=== PATIENT | female | born 1970 | race Caucasian/White ===

== ENCOUNTER → 2017-03-09 | Outpatient (CLI) | payer OTHER ==
[~2017-03-09] MED LIST: ALBUAER19 INH; BUPR100T8 PO; FLR/1 PO; LEVO50TA6 PO; PHEN37.585 PO; PRLSR20 PO; TRAZ-119 PO
--- NOTE | 2017-03-09 17:05 | DIAGNOSTIC IMAGING REPORT ---
LUMBAR SPINE 3 VIEWS CLINICAL HISTORY: Low back pain. FINDINGS: AP, lateral, and coned-down views of the lumbar spine are correlated with KUB dated 06/06/2016. The skeletal structures are well mineralized. There is no radiographic evidence of fracture or malalignment. Vertebral body height and alignment are maintained. The transverse and spinous processes are intact. Small anterior osteophytes are seen throughout. There is mild disc space narrowing at L5-S1. The remaining intervertebral disc spaces are well-maintained. The visualized bony pelvis appears intact. There is a nonobstructed abdominal bowel gas pattern. There is moderate to severe constipation. Surgical clips are seen throughout the right abdomen. Phleboliths are noted in the pelvis. IMPRESSION: 1. No acute bony abnormality is seen involving the lumbosacral spine. 2. Moderate to severe constipation. Electronically signed by: Chalino Gaxiola M.D. 03/09/2017 5:04 PM Dictated Date/Time: 03/09/2017 5:02 PM
== END | disposition home or self-care (01) ==
LOC: C.RAD 16:33
PROVIDERS: ATTEND Physician Assistant Medical
DX: M54.5 Low back pain (principal)

== ENCOUNTER → 2017-03-12 | Outpatient (CLI) | payer OTHER ==
--- NOTE | 2017-03-12 08:43 | DIAGNOSTIC IMAGING REPORT ---
MRI OF THE LUMBAR SPINE WITHOUT CONTRAST CLINICAL HISTORY: Midline low back pain. Recent lifting injury. COMPARISON STUDY: Lumbar spine radiographs March 09, 2017. TECHNIQUE: Utilizing a 1.5 Drea magnet and dedicated coil, multiplanar, multiecho imaging of the lumbar spine was performed without IV contrast. FINDINGS: For purposes of numbering on this exam, the L5-S1 disc space is assigned to axial image 27 of 30. Alignment of lumbar spine is anatomic. Vertebral body heights are maintained. Conus terminates at the lower L1 level. Paravertebral soft tissues are unremarkable. Scattered T1 and T2 hyperintense lesions within the lower thoracic and lumbar spine are noted. The largest is a 1.2 cm lesion within the left posterior aspect of the T12 vertebral body. These are consistent with hemangiomas. L1-2: There is mild disc bulge. The central canal and neural foramen are patent. L2-3: The central canal and neural foramen are patent. L3-4: The central canal and neural foramen are patent. L4-5: There is mild facet arthrosis. The central canal and neural foramen are patent. L5-S1: There is a tiny central disc protrusion. Central canal and neural foramen are patent. IMPRESSION: 1. Mild multilevel degenerative disc disease and facet arthrosis. Patent central canal and neural foramen. 2. Tiny central disc protrusion at L5-S1. Minimal disc bulge at L1-L2. 3. No acute findings within the lumbar spine. No fracture. Electronically signed by: Simba Rosales M.D. 03/12/2017 8:41 AM Dictated Date/Time: 03/12/2017 8:31 AM
== END | disposition home or self-care (01) ==
LOC: C.MRI 07:22
PROVIDERS: ATTEND Physician Assistant
DX: M54.5 Low back pain (principal); M51.27 Other intervertebral disc displacement, lumbosacral region

== ENCOUNTER → 2017-03-23 | Outpatient (CLI) | payer OTHER ==
--- NOTE | 2017-03-23 11:24 | DIAGNOSTIC IMAGING REPORT ---
LEFT WRIST MIN 3 VIEWS ROUTINE CLINICAL HISTORY: INJURY OF LEFT WRIST - STAT COMPARISON: None. DISCUSSION: The bones and joint spaces appear intact. There is no evidence of fracture, dislocation or bony disease. There is no evidence for soft tissue swelling. IMPRESSION: Negative study. Electronically signed by: Jean Pierre Bird M.D. 03/23/2017 11:23 AM Dictated Date/Time: 03/23/2017 11:20 AM
--- NOTE | 2017-03-23 11:25 | DIAGNOSTIC IMAGING REPORT ---
LEFT FOREARM 2 VIEWS ROUTINE CLINICAL HISTORY: INJURY OF LEFT WRIST - STAT COMPARISON: None. DISCUSSION: The bones and joint spaces appear intact. There is no evidence of fracture, dislocation or bony disease. There is no evidence for soft tissue swelling. IMPRESSION: Negative study. Electronically signed by: Jean Pierre Bird M.D. 03/23/2017 11:24 AM Dictated Date/Time: 03/23/2017 11:23 AM
== END | disposition home or self-care (01) ==
LOC: C.RAD 10:50
PROVIDERS: ATTEND Physician Assistant Medical
DX: S69.92XA Unspecified injury of left wrist, hand and finger(s), initial encounter (principal); X58.XXXA Exposure to other specified factors, initial encounter

== ENCOUNTER → 2017-05-14 | Outpatient (CLI) | payer OTHER ==
[~2017-05-14] MED LIST changes: -TRAZ-119 PO; +TRAZ1TAB16 PO
--- NOTE | 2017-05-14 13:57 | MAMMOGRAPHY REPORT ---
BILATERAL DIGITAL SCREENING MAMMOGRAM TOMOSYNTHESIS WITH CAD: 05/14/2017 CLINICAL HISTORY: Routine screening. Patient has no complaints. TECHNIQUE: Breast tomosynthesis in addition to standard 2D mammography was performed. Current study was also evaluated with a Computer Aided Detection (CAD) system. COMPARISON: Comparison is made to exams dated: 05/13/2016 mammogram, 05/10/2015 mammogram, 03/05/2014 tamika mogram, 01/26/2013 mammogram, 01/02/2011 mammogram, and 07/25/2009 mammogram - [facility]. BREAST COMPOSITION: There are scattered areas of fibroglandular density in both breasts. FINDINGS: No suspicious masses, calcifications, or areas of architectural distortion are noted in ei ther breast. There has been no significant interval change compared to prior exams. A biopsy marker clip is again noted in the left central breast. IMPRESSION: ACR BI-RADS CATEGORY 2: BENIGN There is no mammographic evidence of malignancy. A 1 year screening mammogram is recommended. The pa tient will receive written notification of the results. Approximately 10% of breast cancers are not detected with mammography. A negative mammographic report should not delay biopsy if a clinically suggestive mass is present. Chiqui Townsend M.D. /:05/14/2017 12:17:28 Day Habilitation Specialist: Raquel DARDEN)(Jose), [facility] letter sent: Normal 1/2 BI-RADS Code: ACR BI-RADS Category 2: Benign
== END | disposition home or self-care (01) ==
LOC: C.MAMM 11:29
PROVIDERS: ATTEND Student in an Organized Health Care Education/Training Program
DX: Z12.31 Encounter for screening mammogram for malignant neoplasm of breast (principal)

== ENCOUNTER → 2017-06-04 | Outpatient (CLI) | payer OTHER ==
--- NOTE | 2017-06-04 10:36 | DIAGNOSTIC IMAGING REPORT ---
LEFT UPPER EXT JOINT WITHOUT CLINICAL HISTORY: 46 years-old Female presenting with LEFT WRIST PAIN, generalized pain for 2 months, no injury. TECHNIQUE: Multisequence, multiplanar MR imaging of the left wrist was performed without the use of intravenous contrast. IV contrast: None. COMPARISON: Plain radiographs of the left wrist from 03/23/2017.. FINDINGS: Localizer images: Unremarkable. Focal minimal bony edema or cystic change noted in the hamate. No other bony edema is evident. Articular cartilage preserved. Triangular fibrocartilage articular disc intact at the radial insertion, however abnormal intrasubstance linear signal intensity suggest tear near the ulnar insertion. Tendons of the extensor and flexor compartments normal-appearing. Normal appearance of the median nerve. Normal appearance of Guyon's canal. Normal muscle bulk and muscle signal intensity in the intrinsic muscles of the hand. Ganglion cysts noted along the volar aspect of the radiocarpal joint. Scapholunate and lunotriquetral interosseous ligaments intact. Normal intercarpal articulations. IMPRESSION: 1. Suspicion for triangular fibrocartilage articular disc tear near the ulnar insertion. 2. Ganglion cysts along the volar aspect of the radiocarpal joint. Electronically signed by: Alok Sarabia M.D. 06/04/2017 10:34 AM Dictated Date/Time: 06/04/2017 10:28 AM
== END | disposition home or self-care (01) ==
LOC: C.MRI 09:10
PROVIDERS: ATTEND Family Medicine
DX: M25.532 Pain in left wrist (principal); R20.9 Unspecified disturbances of skin sensation; M67.432 Ganglion, left wrist

== ENCOUNTER → 2017-07-12 | Outpatient (CLI) | payer OTHER ==
[~2017-07-12] MED LIST changes: +GADAVIST IV PRN; +MethylPREDNISolone HOME PACK 16 MG TAB PO SCH
--- NOTE | 2017-07-12 14:09 | DIAGNOSTIC IMAGING REPORT ---
L ARTHROGRAM WRIST CLINICAL HISTORY: 46 years-old Female presenting with COMPLEX TEAR OF CARTILAGE L WRIST. COMPARISON: None. PROCEDURE: The risks, benefits, and alternatives to the procedure were discussed with the patient. Written informed consent was obtained. The patient was placed supine on the fluoroscopy table, and a left wrist injection was performed under fluoroscopic guidance. The area was prepped and draped in the usual sterile fashion. The skin and soft tissues anesthetized with local 1% lidocaine. The left wrist joint was accessed utilizing a 22-gauge needle, and approximately 2 cc of a mixture of gadolinium contrast, Optiray 300, and saline was injected into the joint space under fluoroscopic guidance. There was normal distention of the capsule. The procedure was well tolerated without immediate complication. The patient was then transferred to MRI for MR arthrography. Fluoroscopy dosage (mGy): Not available. Fluoroscopy time: 0.8 minutes. Number of fluoroscopic spot images: 7. IMPRESSION: Successful injection of the left wrist under fluoroscopic guidance. Electronically signed by: Alok Sarabia M.D. 07/12/2017 2:08 PM Dictated Date/Time: 07/12/2017 1:58 PM
--- NOTE | 2017-07-12 16:25 | DIAGNOSTIC IMAGING REPORT ---
L UPPER EXTREMITY JOINT W/ CLINICAL HISTORY: 46 years-old Female presenting with COMPLEX TEAR OF CARTILAGE L WRIST. TECHNIQUE: Multisequence, multiplanar MR imaging of the left wrist was performed after intra-articular injection of contrast IV contrast: None. COMPARISON: Left wrist MR from 06/04/2017. FINDINGS: Localizer images: Unremarkable. T1 hyperintense intra-articular contrast is noted in the radiocarpal articulation. No contrast transits into the distal radial ulnar joint, indicative of an intact regular fibrocartilage complex. The disc proper of the TFC is intact, although increased signal intensity at the radial attachment without surface extension indicates degenerative change. The triangular ligament is intact. Ulnar triquetral ligament intact. Normal appearance of the meniscal homolog. No contrast transits into the mid carpal row. Scapholunate and lunotriquetral interosseous ligaments intact. The dorsal and volar radioulnar ligaments are intact. Carpal tunnel normal in appearance. No fracture. No bony edema. No malalignment. IMPRESSION: 1. Degenerative changes of the triangular fibrocartilage complex without evidence of tear. 2. Intact interosseous ligaments of the proximal carpal row. Electronically signed by: Alok Sarabia M.D. 07/12/2017 4:24 PM Dictated Date/Time: 07/12/2017 1:58 PM
== END | disposition home or self-care (01) ==
LOC: C.MRI 12:30
PROVIDERS: ATTEND Orthopaedic Surgery
DX: S63.592A Other specified sprain of left wrist, initial encounter (principal); X58.XXXA Exposure to other specified factors, initial encounter

== ENCOUNTER → 2018-05-17 | Outpatient (CLI) | payer OTHER ==
[~2018-05-17] MED LIST changes: -GADAVIST IV PRN; -MethylPREDNISolone HOME PACK 16 MG TAB PO SCH; -TRAZ1TAB16 PO; +TRAZ1TAB96 PO
--- NOTE | 2018-05-18 13:51 | MAMMOGRAPHY REPORT ---
BILATERAL DIGITAL SCREENING MAMMOGRAM TOMOSYNTHESIS WITH CAD: 05/17/2018 CLINICAL HISTORY: Routine screening. TECHNIQUE: The study was acquired using full field digital technology and interpreted from soft copy. Breast tomosynthesis in addition to standard 2D mammography was performed. Current study was also ev aluated with a Computer Aided Detection (CAD) system. COMPARISON: Comparison is made to exams dated: 05/14/2017 mammogram, 05/13/2016 mammogram, 05/10/2015 ma mmogram, 03/05/2014 mammogram, 01/26/2013 mammogram, and 01/26/2012 mammogram - [facility]. BREAST COMPOSITION: There are scattered areas of fibroglandular density in both breasts. FINDINGS: There is a stable biopsy marker clip within a circumscribed subcentimeter mass in the anter ior retroareolar left breast. No new suspicious mass, architectural distortion or cluster of microcal cifications is seen. IMPRESSION: ACR BI-RADS CATEGORY 1: NEGATIVE There is no mammographic evidence of malignancy. A 1 year screening mammogram is recommended.( [id number]) The patient will receive written notification of the results. Some breast cancers are not detected with mammography. A negative mammographic report should not erinn y biopsy if a clinically suggestive mass is present. Sharri Briones M.D. ay/:05/17/2018 15:21:00 Polytechnic Registrar: RT Sujey(Colin)(M), [facility] letter sent: Normal 1/2 BI-RADS Code: ACR BI-RADS Category 1: Negative
== END | disposition home or self-care (01) ==
LOC: C.MAMM 11:09
PROVIDERS: ATTEND Student in an Organized Health Care Education/Training Program
DX: Z12.31 Encounter for screening mammogram for malignant neoplasm of breast (principal)

== ENCOUNTER 2020-07-29 18:14 | Observation (INO) ==
[2020-07-29 20:36] LABS: Basophils # (auto) 0.03 K/uL (0-0.2); Basophils % (auto) 0.4 %; Eosinophils # (auto) 0.14 K/uL (0-0.5); Eosinophils % (auto) 1.8 %; Hematocrit (blood only) 36.4 % (37-47); Hemoglobin 11.1 g/dL (12.0-16.0); Immature Granulocytes # (auto) 0.01 K/uL (0.00-0.02); Immature Granulocytes % (auto) 0.1 %; Lymphocytes # (auto) 2.53 K/uL (1.2-3.4); Lymphocytes % (auto) 31.7 %; Mean Corpuscular Hemoglobin 25.7 pg (25-34); Mean Corpuscular Hgb Conc 30.5 g/dL (32-36); Mean Corpuscular Volume 84.3 fL (80-100); Mean Platelet Volume 9.9 fL (7.4-10.4); Monocytes # (auto) 0.68 K/uL (0.11-0.59); Monocytes % (auto) 8.5 %; Neutrophils % (auto) 57.5 %; Platelet Count 306 K/uL (130-400); RDW Coefficient of Variation 14.6 % (11.5-14.5); RDW Standard Deviation 45.5 fL (36.4-46.3); Red Blood Count 4.32 M/uL (4.2-5.4); White Blood Count 7.99 K/uL (4.8-10.8)
[2020-07-29 20:39] LABS: Appearance Urine Cloudy (Clear); Bacteria Urine Automated Negative (Negative); Bilirubin Urine Negative (Negative); Blood Urine 3+ (Negative); Color Urine Dark Yellow; Epithelial Cell Urine Auto >30 /lpf (0-5); Glucose Urine UA Negative (Negative); Ketones Urine Trace (Negative); Leukocyte Esterase Urine Negative (Negative); Nitrite Urine Negative (Negative); Protein Urine Negative (Negative); Specific Gravity Urine 1.027 (1.000-1.030); Urobilinogen Urine Negative (Negative)
[2020-07-29 20:52] LABS: Alanine Aminotransferase 20 U/L (12-78); Albumin Level 3.6 gm/dl (3.4-5.0); Aspartate Aminotransferase 9 U/L (15-37); BUN Creatinine Ratio 11.3 (10-20); Blood Urea Nitrogen 11 mg/dl (7-18); Calcium 8.9 mg/dl (8.5-10.1); Carbon Dioxide 29 mmol/L (21-32); Chloride 107 mmol/L (98-107); Creatinine Clr Calc Pharmacy 73.7 ml/min; Est GFR (African American) 76.5; Glucose 101 mg/dl (70-99); Lipase 117 U/L (73-393); Potassium 3.6 mmol/L (3.5-5.1); Sodium 141 mmol/L (136-145)
[2020-07-29 20:55] LABS: Albumin Globulin Ratio 0.8 (0.9-2); Alkaline Phosphatase 97 U/L (45-117); Bilirubin,Total 0.2 mg/dl (0.2-1); Globulin 4.3 gm/dl (2.5-4.0); Total Protein 7.9 gm/dl (6.4-8.2)
[2020-07-29 21:08] LABS: Calcium Oxalate Crystals Urine Present (None Prsent); RBC Urine Automated >30 /hpf (0-4)
--- NOTE | 2020-07-29 21:22 | Emergency Department Note ---
Impression & Plan Acute upper abdominal pain ED Provider Note INFORMANT: Patient ED PROVIDER(S): Heriberto Guallpa MD CHIEF COMPLAINT: Abdominal pain PLAN: Disposition: Admitted Condition: Good MEDICAL DECISION MAKING: Patient presented with acute abdominal pain in the epigastrium. She had tenderness on examination. She had an IV established. Blood was obtained. Her pain was treated with Dilaudid and Zofran. She did feel somewhat better with this. She did require a second dose. Her CBC did not show any leukocytosis but a stable mild anemia. Her chemistry panel, LFTs, and lipase were negative. The patient had some blood on urinalysis however she did note that she had her menstrual cycle. The patient was prepped orally for CT imaging. She underwent CT scan of the abdomen and pelvis and this was negative for any significant pathology. The patient was also treated with Protonix and Pepcid. She was reassessed and was having more significant pain. She had an ECG performed in the showed a normal sinus rhythm. No ischemia was noted. The patient was given a dose of Carafate. Given her recurrent pain and lack of findings on work-up I am concerned about ulcer issues given her gastric bypass status. I discussed further management in the hospital. Patient was in agreement. I consulted with Dr. Omkar Larios, [facility]. The patient was evaluated in the ER for further management. Triage Nursing notes reviewed and agree them. Additional history obtained from significant other Vital Signs: reviewed and remarkable for no significant abnormalities Differential diagnosis: PUD, complication of gastric bypass, Appendicitis, ovarian cyst, ovarian torsion, ectopic , TOA, PID, infections, diverticulitis, UTI, obstruction, mesenteric ischemia, aortic pathology, inflammatory bowel disease, renal colic, PUD, pancreatitis, biliary pathology, hernia, volvulus, constipation, as well as other pathologies. Diagnostics interpreted by me: ECG: Twelve-lead ECG reveals a normal sinus rhythm at 80 bpm. There is an incomplete right bundle-branch block present. Nonspecific ST. No ST elevation or depression. No PACs or PVCs. Normal QRS and axis. Cardiac Monitoring: Cardiac monitoring ordered by me: The patient was placed on continuous cardiac monitoring and observed. It revealed a normal sinus rhythm at 75 beats per minute without ectopy or evidence of dysrhythmia. Imaging studies: CT scan of the abdomen pelvis with oral contrast was negative for acute pathology. Gastric bypass status present. I refer to the EMR for further details. Consultation(s): [facility] HPI: The patient is a 49 year old female who presents to the Emergency Room with complaints of epigastric abd pain. This started today and is worsening. The patient also notes the following associated symptoms, none. The patient has found no relieving factors. Current pain is rated as 7/10. Pt denies LOC, headache, fevers, chills, diaphoresis, visual changes, neck pain, chest pain, breathing difficulties, nausea, vomiting, back pain, melena, hematochezia, urinary symptoms, numbness, weakness, lymphadenopathy, rash, or other complaints. ROS: See above HPI for pertinent positives & negatives. A total of 10 systems reviewed and were otherwise negative. PAST MEDICAL HISTORY:See Below, BPV, SDH PAST SURGICAL HISTORY:See Below, Gastric bypass, appy, melecio FAMILY HISTORY:See Below SOCIAL HISTORY:See Below, HOME MEDICATIONS:See Below ALLERGIES:See Below VITALS:See Below PHYSICAL EXAMINATION: GENERAL: Awake, alert, well-appearing, in no distress HENT: Normocephalic, atraumatic. Oropharynx unremarkable. EYES: Normal conjunctiva. Sclera non-icteric. NECK: Inspection normal. Non-tender. Supple. No nuchal rigidity. FROM. No masses. RESPIRATORY: Clear to auscultation. No wheezes. No rales. Normal respiratory effort. CARDIAC: Normal rate. Normal rhythm. No murmurs. No rubs. Extremities warm and well perfused. Pulses equal. No JVD. GI: Soft, non-distended. epigastric tenderness to palpation. No rebound or guarding. No masses. RECTAL: Deferred. MUSCULOSKELETAL: Atraumatic. Chest examination reveals no tenderness. The back is symmetrical on inspection without obvious abnormality. There is no CVA tenderness to palpation. No joint edema. LOWER EXTREMITIES: Calves are equal size bilaterally and non-tender. No edema. No discoloration. NEURO: Normal sensorium. No sensory or motor deficits noted. SKIN: No rash or jaundice noted. Heriberto Guallpa MD Past Med/Surg History Medical History (Updated 07/29/20 @ 21:20 by Heriberto Guallpa MD) BPV (benign positional vertigo) Bronchitis Dental infection External hemorrhoid Low blood pressure Traumatic subdural hematoma (12/02/11) Upper respiratory infection Urinary tract infection Urinary tract infection Surgical History H/O bariatric surgery History of strabismus surgery S/P appendectomy S/P cardiac cath S/P cholecystectomy S/P ear surgery S/P knee surgery S/P tonsillectomy S/P tubal ligation S/P wrist surgery Family History Mother Asthma Aunt Bleeding disorder Family/Other Bleeding disorder Hypertension mother's side of the family Grandmother (Maternal) Lung cancer Social History Smoking Status: Never smoker Second Hand Exposure: No; Hx Alcohol Use: No Hx Substance Use: No Preferred Language: British current occupational status: unemployed and disabled Feels Safe at Home: Yes Allergies Allergies Allergy/AdvReac Type Severity Reaction Status Date / Time Iodinated Contrast Media Allergy Intermediate THROAT Verified 07/29/20 21:28 TIGHTENS, SHAKINESS venlafaxine Allergy Intermediate DIZZINESS, Verified 07/29/20 21:28 VOMITING acetaminophen Allergy Mild HIVES Verified 07/29/20 21:28 sumatriptan Allergy Mild HIVES Verified 07/29/20 21:28 valproic acid Allergy Mild Dizziness Verified 07/29/20 21:28 erythromycin base Allergy Unknown CAN'T Verified 07/29/20 21:28 REMEMBER ketorolac Allergy Unknown CAN'T Verified 07/29/20 21:28 REMEMBER prednisone Allergy Verified 07/29/20 21:28 oxycodone AdvReac Intermediate nausea Verified 07/29/20 21:28 mupirocin AdvReac Mild itching,cl Verified 07/29/20 21:28 h propoxyphene AdvReac Mild UPSET Verified 07/29/20 21:28 STOMACH Tea Allergy Mild HIVES, Uncoded 07/29/20 21:28 dizziness,sweating Home Meds Home Medications Medication Instructions Recorded Confirmed bupropion HCl 150 mg PO DAILY 11/27/18 07/29/20 levothyroxine 50 mcg PO QAM 11/27/18 07/29/20 Ca carb-D3-mag [id number] 1 tab PO DAILY 12/15/19 07/29/20 [Caltrate + D3 Plus Minerals] pediatric multivitamin 1 tab PO DAILY 12/15/19 07/29/20 [Flintstones Multivitamin] gabapentin 0 mg PO UD 07/29/20 07/29/20 Previous Rx's Medication Instructions Recorded albuterol sulfate 90 mcg/actuation 2 puff INHALATION QID PRN #8.5 gm 09/16/19 aerosol inhaler pantoprazole 40 mg tablet,delayed 40 mg PO DAILY #30 tab 09/16/19 release valacyclovir 500 mg tablet 500 mg PO DAILY #30 tab 09/16/19 sennosides [senna] 8.6 mg PO DAILY PRN #10 cap 12/15/19 Results & Data (ED) Vital Signs Vital Signs - 24 hr 07/29/20 19:23 07/29/20 20:44 07/29/20 21:00 Temperature 37.0 C Temperature Source Oral Pulse Rate 89 75 Pulse Rate [Bilateral] 72 Pulse Rate from SpO2 Sensor 77 Pulse Rhythm [Bilateral] Regular Pulse Strength [Bilateral] Normal Respiratory Rate 20 18 15 Respiratory Effort / Characteristics Non-Labored Spontaneous Non-Labored Spontaneous Respiratory Depth Normal Normal Blood Pressure 111/74 121/67 Blood Pressure [Right Arm] 115/70 Blood Pressure Mean 86 80 Blood Pressure Mean [Right Arm] 85 Blood Pressure Position [Right Arm] Lying Pulse Oximetry 98 96 100 Oxygen Delivery Method Room Air Room Air Room Air Sepsis New/Unexplained Change in Mental Status N/A Sepsis Action Taken by Nursing No Action Required 07/29/20 22:00 07/29/20 23:38 07/30/20 00:00 Temperature Temperature Source Pulse Rate 78 71 66 Pulse Rate [Bilateral] Pulse Rate from SpO2 Sensor 74 65 Pulse Rhythm [Bilateral] Pulse Strength [Bilateral] Respiratory Rate 14 18 18 Respiratory Effort / Characteristics Respiratory Depth Blood Pressure 129/79 125/78 122/83 Blood Pressure [Right Arm] Blood Pressure Mean 91 83 89 Blood Pressure Mean [Right Arm] Blood Pressure Position [Right Arm] Pulse Oximetry 98 100 100 Oxygen Delivery Method Room Air Room Air Room Air Sepsis New/Unexplained Change in Mental Status Sepsis Action Taken by Nursing Laboratory Data Result diagrams: 07/29/20 20:20 07/29/20 20:20 Lab Results 07/29/20 07/29/20 07/29/20 Range/Units 20:20 20:20 20:20 WBC 7.99 (4.8-10.8) K/uL RBC 4.32 (4.2-5.4) M/uL Hgb 11.1 L (12.0-16.0) g/dL Hct 36.4 L (37-47) % MCV 84.3 (80-100) fL MCH 25.7 (25-34) pg MCHC 30.5 L (32-36) g/dL RDW Std Deviation 45.5 (36.4-46.3) fL RDW Coeff of [place] 14.6 H (11.5-14.5) % Plt Count 306 (130-400) K/uL MPV 9.9 (7.4-10.4) fL Immature Gran % (Auto) 0.1 % Neut % (Auto) 57.5 % Lymph % (Auto) 31.7 % [place] % (Auto) 8.5 % Eos % (Auto) 1.8 % Baso % (Auto) 0.4 % Neut # (Auto) 4.60 (1.4-6.5) K/uL Lymph # (Auto) 2.53 (1.2-3.4) K/uL [place] # (Auto) 0.68 H (0.11-0.59) K/uL Eos # (Auto) 0.14 (0-0.5) K/uL Baso # (Auto) 0.03 (0-0.2) K/uL Immature Gran # (Auto) 0.01 (0.00-0.02) K/uL Sodium 141 (136-145) mmol/L Potassium 3.6 (3.5-5.1) mmol/L Chloride 107 (98-107) mmol/L Carbon Dioxide 29 (21-32) mmol/L Anion Gap 5.0 (3-11) BUN 11 (7-18) mg/dl Creatinine 0.99 (0.6-1.2) mg/dl Est Cr Clr Drug Dosing 73.7 ml/min Est GFR ( Amer) 76.5 Est GFR (Non-Af Amer) 66.0 BUN/Creatinine Ratio 11.3 (10-20) Glucose 101 H (70-99) mg/dl Calcium 8.9 (8.5-10.1) mg/dl Total Bilirubin 0.2 (0.2-1) mg/dl AST 9 L (15-37) U/L ALT 20 (12-78) U/L Alkaline Phosphatase 97 (45-117) U/L Total Protein 7.9 (6.4-8.2) gm/dl Albumin 3.6 (3.4-5.0) gm/dl Globulin 4.3 H (2.5-4.0) gm/dl Albumin/Globulin Ratio 0.8 L (0.9-2) Lipase 117 (73-393) U/L Urine Color Dark Yellow Urine Appearance Cloudy A (Clear) Urine pH 5.0 (4.5-7.5) Ur Specific [place] 1.027 (1.000-1.030) Urine Protein Negative (Negative) Urine Glucose (UA) Negative (Negative) Urine Ketones Trace H (Negative) Urine Blood 3+ H (Negative) Urine Nitrite Negative (Negative) Urine Bilirubin Negative (Negative) Urine Urobilinogen Negative (Negative) Ur Leukocyte Esterase Negative (Negative) Urine WBC (Auto) 1-5 (0-5) /hpf Urine RBC (Auto) >30 H (0-4) /hpf U Hyaline Cast (Auto) 1-5 (0-5) /lpf U Epithel Cells (Auto) >30 H (0-5) /lpf Urine Bacteria (Auto) Negative (Negative) Urine Crystals Not Reportable Calcium Oxalate Crystal Present A (None Prsent) POC Ur Test (NEG) 07/29/20 Range/Units Unknown WBC (4.8-10.8) K/uL RBC (4.2-5.4) M/uL Hgb (12.0-16.0) g/dL Hct (37-47) % MCV (80-100) fL MCH (25-34) pg MCHC (32-36) g/dL RDW Std Deviation (36.4-46.3) fL RDW Coeff of [place] (11.5-14.5) % Plt Count (130-400) K/uL MPV (7.4-10.4) fL Immature Gran % (Auto) % Neut % (Auto) % Lymph % (Auto) % [place] % (Auto) % Eos % (Auto) % Baso % (Auto) % Neut # (Auto) (1.4-6.5) K/uL Lymph # (Auto) (1.2-3.4) K/uL [place] # (Auto) (0.11-0.59) K/uL Eos # (Auto) (0-0.5) K/uL Baso # (Auto) (0-0.2) K/uL Immature Gran # (Auto) (0.00-0.02) K/uL Sodium (136-145) mmol/L Potassium (3.5-5.1) mmol/L Chloride (98-107) mmol/L Carbon Dioxide (21-32) mmol/L Anion Gap (3-11) BUN (7-18) mg/dl Creatinine (0.6-1.2) mg/dl Est Cr Clr Drug Dosing ml/min Est GFR ( Amer) Est GFR (Non-Af Amer) BUN/Creatinine Ratio (10-20) Glucose (70-99) mg/dl Calcium (8.5-10.1) mg/dl Total Bilirubin (0.2-1) mg/dl AST (15-37) U/L ALT (12-78) U/L Alkaline Phosphatase (45-117) U/L Total Protein (6.4-8.2) gm/dl Albumin (3.4-5.0) gm/dl Globulin (2.5-4.0) gm/dl Albumin/Globulin Ratio (0.9-2) Lipase (73-393) U/L Urine Color Urine Appearance (Clear) Urine pH (4.5-7.5) Ur Specific [place] (1.000-1.030) Urine Protein (Negative) Urine Glucose (UA) (Negative) Urine Ketones (Negative) Urine Blood (Negative) Urine Nitrite (Negative) Urine Bilirubin (Negative) Urine Urobilinogen (Negative) Ur Leukocyte Esterase (Negative) Urine WBC (Auto) (0-5) /hpf Urine RBC (Auto) (0-4) /hpf U Hyaline Cast (Auto) (0-5) /lpf U Epithel Cells (Auto) (0-5) /lpf Urine Bacteria (Auto) (Negative) Urine Crystals Calcium Oxalate Crystal (None Prsent) POC Ur Test NEG (NEG) Administered Medications Discontinued Medications Famotidine (Famotidine 20mg/5ml Iv Push) 20 mg IV ONE STA Stop: 07/29/20 21:24 Last Admin: 07/29/20 21:33 Dose: 20 mg Documented by: [id number] Hydromorphone HCl (Hydromorphone Inj 0.5 Mg/0.5 Ml Syr) 0.5 mg IV NOW STA Stop: 07/29/20 21:24 Last Admin: 07/29/20 21:34 Dose: 0.5 mg Documented by: [id number] Hydromorphone HCl (Hydromorphone Inj 0.5 Mg/0.5 Ml Syr) 0.5 mg IV NOW STA Stop: 07/29/20 23:22 Last Admin: 07/29/20 23:35 Dose: 0.5 mg Documented by: [id number] Ondansetron HCl (Ondansetron Inj 2 Mg/Ml 2 Ml Vial) 4 mg IV NOW STA Stop: 07/29/20 21:24 Last Admin: 07/29/20 21:33 Dose: 4 mg Documented by: [id number] Ondansetron HCl (Ondansetron Home Pack 4mg Od Tab) 1 homepack PO NOW ONE Stop: 07/30/20 00:23 Last Admin: 07/30/20 00:38 Dose: Not Given Documented by: [id number] Oxycodone HCl (Oxycodone Ir Home Pack) 1 homepack PO UD ONE Stop: 07/30/20 00:23 Last Admin: 07/30/20 00:38 Dose: Not Given Documented by: [id number] Pantoprazole Sodium (Pantoprazole 40 Mg Tab) 40 mg PO NOW STA Stop: 07/29/20 21:24 Last Admin: 07/29/20 21:33 Dose: 40 mg Documented by: [id number] Sucralfate (Sucralfate 1 Gm/10 Ml Udc) 1 gm PO NOW STA Stop: 07/30/20 00:23 Last Admin: 07/30/20 00:38 Dose: 1 gm Documented by: [id number] Discharge Plan Visit Data Chief Complaint: Abdominal Pain Stated Complaint: ABD PAIN ED Provider: Heriberto Guallpa Discharge Problem: Acute upper abdominal pain Forms Stand Alone Forms: [facility] IIIMOBI Prescriptions Prescriptions: No Action pantoprazole 40 mg tablet,delayed release (DR/EC) 40 mg PO DAILY Qty: 30 RF: 2 valacyclovir 500 mg tablet 500 mg PO DAILY Qty: 30 RF: 2 albuterol sulfate [Ventolin HFA] 90 mcg/actuation HFA aerosol inhaler 2 puff INHALATION QID PRN (Reason: shortness of breath) Qty: 8.5 RF: 0 bupropion HCl 150 mg tablet sustained-release 12 hr 150 mg PO DAILY RF: 0 levothyroxine 50 mcg tablet 50 mcg PO QAM RF: 0 Flintstones Multivitamin Tablet,Chewable 1 tab PO DAILY RF: 0 Caltrate + D3 Plus Minerals 300 mg-800 unit -25 mg-0.5 mg Tablet 1 tab PO DAILY RF: 0 senna 8.6 mg capsule 8.6 mg PO DAILY PRN (Reason: constipation) Qty: 10 RF: 0 gabapentin 100 mg Capsule 0 mg PO UD RF: 0
[2020-07-29] MEDS ORDERED: ONDANSETRON INJ 2 MG/ML 2 ML VIAL IV STA (21:23)
[2020-07-29] MEDS ORDERED: HYDROmorphone INJ 0.5 MG/0.5 ML SYR IV STA ×2 (21:23→23:21)
[2020-07-29] MEDS ORDERED: FAMOTIDINE 20MG/5ML IV PUSH IV STA (21:23)
[2020-07-29] MEDS ORDERED: PANTOprazole 40 MG TAB PO STA (21:23)
[2020-07-30] MEDS ORDERED: ONDANSETRON HOME PACK 4MG OD TAB PO ONE (00:22)
[2020-07-30] MEDS ORDERED: SUCRALFATE 1 GM/10 ML UDC PO STA (00:22)
[2020-07-30] MEDS ORDERED: oxyCODONE IR HOME PACK PO ONE (00:22)
[2020-07-30] MEDS ORDERED: HYDROmorphone INJ 0.5 MG/0.5 ML SYR IV PRN (00:26)
[2020-07-30] MEDS ORDERED: MoRPHine SULFATE 4 MG/ML 1 ML CARP\\VIAL IV PRN (00:45)
[2020-07-30] MEDS ORDERED: PROMETHAZINE HCL 12.5 MG in SODIUM CHLORIDE 0.9% 50 ML IV PRN (00:46)
[2020-07-30] MEDS ORDERED: traMADol HCL 50 MG TABLET PO PRN ×2 (00:46→03:52)
[2020-07-30 01:05] LABS: Troponin I < 0.015 ng/ml (0-0.045)
[2020-07-30 01:42] LABS: Partial Thromboplastin Ratio 0.9
[2020-07-30 01:48] LABS: D Dimer 830 ug/L FEU (0-500)
[2020-07-30] MEDS ORDERED: Heparin IV Low Dose *NO* Bolus IV STA (02:12)
--- NOTE | 2020-07-30 02:26 | History & Physical Report ---
Date of Service July 30, 2020 Assessment & Plan (1) SOB (shortness of breath): Associated with subcostal/epigastric pain from possible gastritis Rule out PE given abnormal D-dimer anxiety/mood/personality disorder as per records, at baseline history gastric bypass orthostatic hypotension as per records chronic anemia, Hg at baseline history of PCOS HSV on chronic suppressive therapy OBS Medical telemetry TTE chest pain VQ scan, LE venous Dopplers to rule out PE/DVT (CT angio precluded by IV contrast allergy) IV heparin until PE ruled out PPI for possible gastritis GI consult if still with uncontrolled GI symptoms in the morning DVT prophylaxis. IV heparin Full code Text document was generated using [employer] voice recognition software. It may contain grammatical or spelling errors. Kindly contact undersigned for clarification of any documentation item in questi on. History of Present Illness Chief Complaint: Abdominal pain under the ribs, shortness of breath Primary Care Provider: Meka Medrano DO History obtained from patient, family, and records. Medical history significant for anxiety/mood/personality disorder as per records, history gastric bypass, orthostatic hypotension as per records, chrornic anemia (baseline hemiglobin of 11), history of PCOS, HSV on chronic suppressive therapy. Last confinement February 2012 for drug overdose. Yesterday afternoon patient noted sudden onset stabbing epigastric pain with radiation to subcostal area, somewhat pleuritic with shortness of breath. No prior episodes in the past. No OTC NSAID intake. No inordinate fatty meal. At the ER patient had relief of discomfort following Dilaudid, Protonix, and Carafate administration. Medical History as above 2014 EGD was normal Surgical History : Wrist surgery, appendectomy, strabismus surgery, cholecystectomy, BTL, tonsillectomy, cholecystectomy, eardrum surgery, gastric bypass Family History : Blood clots, heart disease, lung cancer Personal/Social history : Non-smoker, no EtOH intake, disabled Allergies Allergy/AdvReac Type Severity Reaction Status Date / Time Iodinated Contrast Media Allergy Intermediate THROAT Verified 07/29/20 21:28 TIGHTENS, SHAKINESS venlafaxine Allergy Intermediate DIZZINESS, Verified 07/29/20 21:28 VOMITING acetaminophen Allergy Mild HIVES Verified 07/29/20 21:28 sumatriptan Allergy Mild HIVES Verified 07/29/20 21:28 valproic acid Allergy Mild Dizziness Verified 07/29/20 21:28 erythromycin base Allergy Unknown CAN'T Verified 07/29/20 21:28 REMEMBER ketorolac Allergy Unknown CAN'T Verified 07/29/20 21:28 REMEMBER prednisone Allergy Verified 07/29/20 21:28 oxycodone AdvReac Intermediate nausea Verified 07/29/20 21:28 mupirocin AdvReac Mild itching,cl Verified 07/29/20 21:28 h propoxyphene AdvReac Mild UPSET Verified 07/29/20 21:28 STOMACH Tea Allergy Mild HIVES, Uncoded 07/29/20 21:28 dizziness,sweating Home Medications Home Medications Medication Instructions Recorded Confirmed Type bupropion HCl 150 mg PO DAILY 11/27/18 07/29/20 History levothyroxine 50 mcg PO QAM 11/27/18 07/29/20 History albuterol sulfate 90 mcg/actuation 2 puff INHALATION QID PRN #8.5 gm 09/16/19 07/29/20 Rx aerosol inhaler pantoprazole 40 mg tablet,delayed 40 mg PO DAILY #30 tab 09/16/19 07/29/20 Rx release valacyclovir 500 mg tablet 500 mg PO DAILY #30 tab 09/16/19 07/29/20 Rx Ca carb-D3-mag [id number] 1 tab PO DAILY 12/15/19 07/29/20 History [Caltrate + D3 Plus Minerals] pediatric multivitamin 1 tab PO DAILY 12/15/19 07/29/20 History [Flintstones Multivitamin] sennosides [senna] 8.6 mg PO DAILY PRN #10 cap 12/15/19 07/29/20 Rx gabapentin 0 mg PO UD 07/29/20 07/29/20 History Past Med/Surg History Medical History BPV (benign positional vertigo) Bronchitis Dental infection External hemorrhoid Low blood pressure Traumatic subdural hematoma (12/02/11) Upper respiratory infection Urinary tract infection Urinary tract infection Surgical History H/O bariatric surgery History of strabismus surgery S/P appendectomy S/P cardiac cath S/P cholecystectomy S/P ear surgery S/P knee surgery S/P tonsillectomy S/P tubal ligation S/P wrist surgery Family History Mother Asthma Aunt Bleeding disorder Family/Other Bleeding disorder Hypertension mother's side of the family Grandmother (Maternal) Lung cancer Social History Smoking Status: Never smoker Second Hand Exposure: No; Hx Alcohol Use: No Hx Substance Use: No Preferred Language: Yakut Communication Ability: Effective Ink Technician Required: No Beliefs That Will Affect Care: None Current Living Situation: Spouse current occupational status: unemployed and disabled Other Information That Helps Us Care for You: No Feels Safe at Home: Yes Safety Concerns: Feels Safe At This Time Assistive Devices: Glasses Review of Systems Review of Systems: As per HPI, all 10 systems reviewed, all other ROS negative Physical Exam Physical Exam: GENERAL: Slightly anxious , no respiratory distress SKIN: Normal color, warm HEENT: [place] palpebral conjunctivae, no ptosis, dry buccal mucosa NECK : Supple, short neck, no tenderness CHEST : CTA, no tenderness HEART : RRR, no obvious murmurs ABDOMEN: Some distention, epigastric tenderness EXTREMITIES : No LE swelling/tenderness, no other conspicuous deformities noted NEUROLOGIC : Coherent, no facial asymmetry, no other gross focality Results & Data Results & Data ([facility]) Vital Signs (Past 12 Hours) Vital Signs Temp Pulse Pulse Resp BP BP Pulse Ox 07/30/20 00:00 66 18 122/83 100 07/29/20 23:38 71 18 125/78 100 07/29/20 22:00 78 14 129/79 98 07/29/20 21:00 75 15 121/67 100 07/29/20 20:44 72 18 115/70 96 07/29/20 19:23 37.0 C 89 20 111/74 98 Laboratory Results Laboratory Results WBC 7.99 K/uL (4.8-10.8) 07/29/20 20:20 RBC 4.32 M/uL (4.2-5.4) 07/29/20 20:20 Hgb 11.1 g/dL (12.0-16.0) L 07/29/20 20:20 Hct 36.4 % (37-47) L 07/29/20 20:20 MCV 84.3 fL (80-100) 07/29/20 20:20 MCH 25.7 pg (25-34) 07/29/20 20:20 MCHC 30.5 g/dL (32-36) L 07/29/20 20:20 RDW Std Deviation 45.5 fL (36.4-46.3) 07/29/20 20:20 RDW Coeff of [place] 14.6 % (11.5-14.5) H 07/29/20 20:20 Plt Count 306 K/uL (130-400) 07/29/20 20:20 MPV 9.9 fL (7.4-10.4) 07/29/20 20:20 Immature Gran % (Auto) 0.1 % 07/29/20 20:20 Neut % (Auto) 57.5 % 07/29/20 20:20 Lymph % (Auto) 31.7 % 07/29/20 20:20 [place] % (Auto) 8.5 % 07/29/20 20:20 Eos % (Auto) 1.8 % 07/29/20 20:20 Baso % (Auto) 0.4 % 07/29/20 20:20 Neut # (Auto) 4.60 K/uL (1.4-6.5) 07/29/20 20:20 Lymph # (Auto) 2.53 K/uL (1.2-3.4) 07/29/20 20:20 [place] # (Auto) 0.68 K/uL (0.11-0.59) H 07/29/20 20:20 Eos # (Auto) 0.14 K/uL (0-0.5) 07/29/20 20:20 Baso # (Auto) 0.03 K/uL (0-0.2) 07/29/20 20:20 Immature Gran # (Auto) 0.01 K/uL (0.00-0.02) 07/29/20 20:20 APTT 25.0 Seconds (21.0-31.0) 07/30/20 01:20 PTT Ratio 0.9 07/30/20 01:20 D-Dimer 830 ug/L FEU (0-500) H* 07/30/20 01:20 Sodium 141 mmol/L (136-145) 07/29/20 20:20 Potassium 3.6 mmol/L (3.5-5.1) 07/29/20 20:20 Chloride 107 mmol/L (98-107) 07/29/20 20:20 Carbon Dioxide 29 mmol/L (21-32) 07/29/20 20:20 Anion Gap 5.0 (3-11) 07/29/20 20:20 BUN 11 mg/dl (7-18) 07/29/20 20:20 Creatinine 0.99 mg/dl (0.6-1.2) 07/29/20 20:20 Est Cr Clr Drug Dosing 73.7 ml/min 07/29/20 20:20 Est GFR ( Amer) 76.5 07/29/20 20:20 Est GFR (Non-Af Amer) 66.0 07/29/20 20:20 BUN/Creatinine Ratio 11.3 (10-20) 07/29/20 20:20 Glucose 101 mg/dl (70-99) H 07/29/20 20:20 Calcium 8.9 mg/dl (8.5-10.1) 07/29/20 20:20 Total Bilirubin 0.2 mg/dl (0.2-1) 07/29/20 20:20 AST 9 U/L (15-37) L 07/29/20 20:20 ALT 20 U/L (12-78) 07/29/20 20:20 Alkaline Phosphatase 97 U/L (45-117) 07/29/20 20:20 Troponin I < 0.015 ng/ml (0-0.045) 07/29/20 20:20 Total Protein 7.9 gm/dl (6.4-8.2) 07/29/20 20:20 Albumin 3.6 gm/dl (3.4-5.0) 07/29/20 20:20 Globulin 4.3 gm/dl (2.5-4.0) H 07/29/20 20:20 Albumin/Globulin Ratio 0.8 (0.9-2) L 07/29/20 20:20 Lipase 117 U/L (73-393) 07/29/20 20:20 Urine Color Dark Yellow 07/29/20 20:20 Urine Appearance Cloudy (Clear) A 07/29/20 20:20 Urine pH 5.0 (4.5-7.5) 07/29/20 20:20 Ur Specific [place] 1.027 (1.000-1.030) 07/29/20 20:20 Urine Protein Negative (Negative) 07/29/20 20:20 Urine Glucose (UA) Negative (Negative) 07/29/20 20:20 Urine Ketones Trace (Negative) H 07/29/20 20:20 Urine Blood 3+ (Negative) H 07/29/20 20:20 Urine Nitrite Negative (Negative) 07/29/20 20:20 Urine Bilirubin Negative (Negative) 07/29/20 20:20 Urine Urobilinogen Negative (Negative) 07/29/20 20:20 Ur Leukocyte Esterase Negative (Negative) 07/29/20 20:20 Urine WBC (Auto) 1-5 /hpf (0-5) 07/29/20 20:20 Urine RBC (Auto) >30 /hpf (0-4) H 07/29/20 20:20 U Hyaline Cast (Auto) 1-5 /lpf (0-5) 07/29/20 20:20 U Epithel Cells (Auto) >30 /lpf (0-5) H 07/29/20 20:20 Urine Bacteria (Auto) Negative (Negative) 07/29/20 20:20 Urine Crystals Not Reportable 07/29/20 20:20 Calcium Oxalate Crystal Present (None Prsent) A 07/29/20 20:20 POC Ur Test NEG (NEG) 07/29/[address] abdomen pelvis initial read: No acute process. Postop changes level of stomach with gastrojejunostomy. Small bowel unremarkable. Chest x-ray as per my interpretation no infiltrate EKG as per my interpretation : Rate ninety, NSR, LAD, LAFB, diffuse T wave flattening, low voltage
[2020-07-30] MEDS ORDERED: HEPARIN 25000 UNIT/500 ML D5W IV ONE (02:35)
[2020-07-30] MEDS: HEPARIN SODIUM/DEXTROSE 25,000 UNITS/500 ML BAG IV SCH ×2 (02:44→02:53)
[2020-07-30 02:47] LABS: Magnesium 2.3 mg/dl (1.8-2.4)
[2020-07-30] MEDS ORDERED: SENNA 8.6 MG TAB PO PRN (03:52)
[2020-07-30] MEDS ORDERED: LACTATED RINGER'S 1,000 ML IV ONE (03:52)
[2020-07-30] MEDS ORDERED: LORazepam 0.5 MG/1 ML VIAL IV PRN (03:52)
[2020-07-30] MEDS: GABAPENTIN 100 MG CAP PO SCH ×2 (05:20→08:59)
[2020-07-30] MEDS ORDERED: SUCRALFATE 1 GM TAB PO STA (06:24)
[2020-07-30] MEDS ORDERED: LEVOTHYROXINE SODIUM 50 MCG TABLET PO SCH (06:30)
--- NOTE | 2020-07-30 07:08 | Ultrasound Report ---
BILATERAL LOWER EXTREMITY VENOUS DOPPLER HISTORY: Elevated d-dimer. Leg swelling. COMPARISON STUDY: None. FINDINGS: There is normal compressibility, flow, and augmentation within the bilateral lower extremit y deep venous systems. IMPRESSION: No DVT within the right or left lower extremity. ACT 112: Negative or not required by law. Electronically signed by: Lonnie Abernathy M.D. 07/30/2020 7:06 AM
--- NOTE | 2020-07-30 07:54 | XRay Report ---
XR chest 1V portable HISTORY: Shortness of breath. COMPARISON: Chest 12/15/2019. FINDINGS: The lungs are clear. Cardiac silhouette is normal in size. No pleural effusions. No pneumot horax. IMPRESSION: No acute process. ACT 112: Negative or not required by law. Electronically signed by: Lonnie Abernathy M.D. 07/30/2020 7:53 AM
--- NOTE | 2020-07-30 08:51 | CT Scan Report ---
ABDOMEN AND PELVIS CT WITH ORAL CONTRAST CT DOSE: 645.18 mGy.cm HISTORY: epigastric pain, gastric bypass, quick prep TECHNIQUE: Multiaxial CT images of the abdomen and pelvis were performed following the use of oral co ntrast. A dose lowering technique was utilized adhering to the principles of ALARA. COMPARISON STUDY: Abdomen and pelvis CT 12/15/2019. FINDINGS: The lungs are clear. No pneumoperitoneum. No pneumatosis. Prior cholecystectomy. The unenha nced liver, spleen, pancreas, adrenal glands, kidneys are within normal limits. No hydronephrosis. Po stoperative changes consistent with prior Colt-en-Y gastric bypass. The appendix is not identified an d reportedly surgically absent. No bowel wall thickening or obstruction. The uterus and bladder withi n normal limits. Moderate well-formed stool within the colon. No suspicious lytic or blastic osseous lesions. IMPRESSION: 1. No bowel wall thickening or obstruction. 2. Moderate constipation. 3. Postoperative changes consistent with prior Colt-en-Y gastric bypass. 4. Prior cholecystectomy. ACT 112: Negative or not required by law. Electronically signed by: Lonnie Abernathy M.D. 07/30/2020 8:50 AM
[2020-07-30] MEDS ORDERED: MULTIVITAMIN CHEWABLE TAB PO SCH (09:00)
[2020-07-30] MEDS ORDERED: PANTOprazole 40 MG TAB PO SCH ×3 (09:00→21:00)
[2020-07-30] MEDS ORDERED: valACYclovir HCL 500 MG TABLET PO SCH (09:00)
[2020-07-30] MEDS ORDERED: buPROPion SR 150 MG TABCR PO SCH (09:00)
[2020-07-30 09:11] LABS: Basophils # (auto) 0.01 K/uL (0-0.2); Basophils % (auto) 0.2 %; Eosinophils # (auto) 0.04 K/uL (0-0.5); Eosinophils % (auto) 0.8 %; Lymphocytes # (auto) 1.43 K/uL (1.2-3.4); Lymphocytes % (auto) 27.6 %; Mean Corpuscular Hemoglobin 25.8 pg (25-34); Mean Corpuscular Hgb Conc 31.3 g/dL (32-36); Mean Corpuscular Volume 82.7 fL (80-100); Mean Platelet Volume 10.2 fL (7.4-10.4); Monocytes # (auto) 0.51 K/uL (0.11-0.59); Monocytes % (auto) 9.8 %; Neutrophils % (auto) 61.6 %; Platelet Count 261 K/uL (130-400); RDW Coefficient of Variation 14.5 % (11.5-14.5); RDW Standard Deviation 43.7 fL (36.4-46.3); Red Blood Count 3.87 M/uL (4.2-5.4); White Blood Count 5.19 K/uL (4.8-10.8)
[2020-07-30 09:26] LABS: Partial Thromboplastin Ratio 1.4; Partial Thromboplastin Time 39.9 Seconds (21.0-31.0)
[2020-07-30 09:38] LABS: BUN Creatinine Ratio 8.5 (10-20); Blood Urea Nitrogen 8 mg/dl (7-18); Calcium 8.6 mg/dl (8.5-10.1); Carbon Dioxide 29 mmol/L (21-32); Chloride 109 mmol/L (98-107); Creatinine Clr Calc Pharmacy 78.2 ml/min; Est GFR (African American) 82.5; Est GFR (Non-African American) 71.2; Glucose 104 mg/dl (70-99); Potassium 3.7 mmol/L (3.5-5.1); Sodium 141 mmol/L (136-145)
[2020-07-30 09:42] LABS: Troponin I < 0.015 ng/ml (0-0.045)
[2020-07-30] MEDS ORDERED: HEPARIN IV BOLUS 4,500 UNITS in SYRINGE 0 ML IV ONE (10:15)
--- NOTE | 2020-07-30 10:46 | Nuclear Medicine Report ---
NM pul perfusion CLINICAL HISTORY: Atypical chest pain., pls relay result to md when available. COMPARISON STUDY: Chest 07/30/2020. TECHNIQUE: Immediately following the intravenous administration of 5.4 mCi of technetium 99 M MAA for the perfusion scan, anterior, oblique, lateral, and posterior views of the chest were obtained. Vent ilation scan was not obtained due to standard coronavirus precautions. FINDINGS: Normal perfusion seen throughout the lungs. No segmental defects identified. IMPRESSION: Normal perfusion scan. ACT 112: Negative or not required by law. Electronically signed by: Lonnie Abernathy M.D. 07/30/2020 10:45 AM
--- NOTE | 2020-07-30 10:54 | Gastrointestinal Consultation ---
Date of Consultation July 30, 2020 Assessment & Plan (1) Acute upper abdominal pain: Pt is a 49 y/o female w hx of gastric bypass seen mainly for upper abd pain and heartburn symptoms. + moderate constipation on CT scan. + iron deficiency anemia, FA, B12 normal. DDX: gastritis, PUD - Will increase Protonix to 40mg BID; add Carafate 1g BID - Plan for outpt EGD eval - Iron supplementation - Avoid NSAIDs, tobacco, ETOH uses - Defer SOB workup to primary hospitalist Supervising Physician Co-Signing Physician Notes I performed a history and physical examination of the patient today, including specifically on physical exam - soft abdomen. I have discussed the patient's management with the advanced practitioner. Please refer to the nurse practitioner's note for the documented findings and plan of care. EGD as OP. Recall Gi if needed. History of Present Illness Reason for Consultation: Possible PUD, abd pain; anemia Requesting Physician: Dr. Maverick Alejandro Attending Physician: Dr. Claudette Paula History of Present Illness Pt is a 49 y/o female w hx of gastric bypass 1 year ago who is seen today for c/o abd pain across upper abd areas. Pain is associated w "burning" sensation to upper chest and back. Denies fever, chills, n/v, bowel habit changes. She does have some SOB, Ddimer was elevated, no DVT noted on LE, VQ scan results pending. CT abd/pelvis w/o signs of wall thickening, obstruction. + moderate constipation. She denies NSAIDs, ETOH, marijuana or other illicit drug uses. Noted last confinement in 2011 w drug overdose. She is exposed to 2nd hand smoker (fiance) Denies sick contact, new meds or recent antibx. Last EGD/EUS - unremarkable except diffuse echogenicity of pancreas Allergies Allergy/AdvReac Type Severity Reaction Status Date / Time Iodinated Contrast Media Allergy Intermediate THROAT Verified 07/29/20 21:28 TIGHTENS, SHAKINESS venlafaxine Allergy Intermediate DIZZINESS, Verified 07/29/20 21:28 VOMITING acetaminophen Allergy Mild HIVES Verified 07/29/20 21:28 sumatriptan Allergy Mild HIVES Verified 07/29/20 21:28 valproic acid Allergy Mild Dizziness Verified 07/29/20 21:28 erythromycin base Allergy Unknown CAN'T Verified 07/29/20 21:28 REMEMBER ketorolac Allergy Unknown CAN'T Verified 07/29/20 21:28 REMEMBER prednisone Allergy Verified 07/29/20 21:28 oxycodone AdvReac Intermediate nausea Verified 07/29/20 21:28 mupirocin AdvReac Mild itching,cl Verified 07/29/20 21:28 h propoxyphene AdvReac Mild UPSET Verified 07/29/20 21:28 STOMACH Tea Allergy Mild HIVES, Uncoded 07/29/20 21:28 dizziness,sweating Home Medications Home Medications Medication Instructions Recorded Confirmed Type bupropion HCl 150 mg PO DAILY 11/27/18 07/29/20 History levothyroxine 50 mcg PO QAM 11/27/18 07/29/20 History albuterol sulfate 90 mcg/actuation 2 puff INHALATION QID PRN #8.5 gm 09/16/19 07/29/20 Rx aerosol inhaler valacyclovir 500 mg tablet 500 mg PO DAILY #30 tab 09/16/19 07/29/20 Rx Caltrate + D3 Plus Minerals 1 tab PO DAILY 12/15/19 07/29/20 History Flintstones Multivitamin 1 tab PO DAILY 12/15/19 07/29/20 History senna 8.6 mg PO DAILY PRN #10 cap 12/15/19 07/29/20 Rx gabapentin 0 mg PO UD 07/29/20 07/29/20 History pantoprazole 40 mg PO BID #30 tab 07/30/20 07/29/20 Rx sucralfate 1 g PO BID@0730,2230 #420 ml 07/30/20 Rx Patient History Medical History BPV (benign positional vertigo) Bronchitis Dental infection External hemorrhoid Low blood pressure Traumatic subdural hematoma (12/02/11) Upper respiratory infection Urinary tract infection Urinary tract infection Surgical History H/O bariatric surgery History of strabismus surgery S/P appendectomy S/P cardiac cath S/P cholecystectomy S/P ear surgery S/P knee surgery S/P tonsillectomy S/P tubal ligation S/P wrist surgery Family History Mother Asthma Aunt Bleeding disorder Family/Other Bleeding disorder Hypertension mother's side of the family Grandmother (Maternal) Lung cancer Social History Smoking Status: Never smoker Second Hand Exposure: No; Hx Alcohol Use: No Hx Substance Use: No Preferred Language: Greek Communication Ability: Effective 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 Required: No Beliefs That Will Affect Care: None Current Living Situation: Spouse current occupational status: unemployed and disabled Other Information That Helps Us Care for You: No Feels Safe at Home: Yes Safety Concerns: Feels Safe At This Time Assistive Devices: Glasses Review of Systems Review of Systems: All systems reviewed & are unremarkable except as noted in HPI & below Physical Exam Constitutional: WD/WN, vitals as above well groomed, cooperative and comfortable Eyes: PERRL, conjunctivae normal, anicteric sclerae ENMT: external ear and nose normal, oropharynx normal Respiratory: normal respiratory effort, lungs clear to auscultation Cardiovascular: RRR, no murmur, no edema Gastrointestinal (Abdomen): Inspection/Auscultation: normal bowel sounds Percussion/Palpation: + abdomen tender (across upper abd ) and abdomen soft Skin: no rashes, warm and dry no jaundice Psychiatric: A+Ox3, euthymic affect Lymphatic: no lymphedema Results & Data ([facility]) Vital Signs (Past 12 Hours) Vital Signs Temp Pulse Pulse Resp BP BP Pulse Ox 07/30/20 07:57 36.5 C 71 20 103/69 98 07/30/20 07:25 73 07/30/20 04:37 85 07/30/20 03:54 36.8 C 87 18 111/74 100 07/30/20 03:00 94 H 21 128/71 99 07/30/20 01:44 84 18 110/66 97 07/30/20 01:00 80 12 110/66 98 07/30/20 00:00 66 18 122/83 100 07/29/20 23:38 71 18 125/78 100
--- NOTE | 2020-07-30 13:01 | Hospitalist Progress Note ---
Date of Service July 30, 2020 Assessment & Plan Admission and Anticipated Discharge Date Admission Date: July 30, 2020 Subjective Patient seen examined in room 241. She is lying in bed, in no acute distress. Her fianc is at the bedside. Currently she is comfortable, denies any abdominal pain, also denies any fevers, chills, chest pain, shortness of breath. VQ scan obtained earlier today was negative, Doppler was also obtained and DVT was ruled out. Reviewed previous D-dimers in the past, they were also elevated above 600. Echocardiogram unremarkable. Concern for PUD, contacted the GI for further recommendations. Patient responded well to Carafate. We will increase Protonix to twice a day and will discharge patient on Carafate patient is in understanding. Discussed in detail diet and other lifestyle modifications. Likely EGD evaluation as outpatient per GI. Lindsey Alejandro MD Results & Data Results & Data ([facility]) Vital Signs (Past 12 Hours) Vital Signs Temp Pulse Pulse Resp BP BP Pulse Ox 07/30/20 11:46 36.5 C 71 19 121/80 100 07/30/20 07:57 36.5 C 71 20 103/69 98 07/30/20 07:25 73 07/30/20 04:37 85 07/30/20 03:54 36.8 C 87 18 111/74 100 07/30/20 03:00 94 H 21 128/71 99 07/30/20 01:44 84 18 110/66 97 07/30/20 01:00 80 12 110/66 98
--- NOTE | 2020-07-30 13:21 | Discharge Summary ---
Date of Service July 30, 2020 Admission HPI Per Admitting Provider History obtained from patient, family, and records. Medical history significant for anxiety/mood/personality disorder as per records, history gastric bypass, orthostatic hypotension as per records, chrornic anemia (baseline hemiglobin of 11), history of PCOS, HSV on chronic suppressive therapy. Last confinement February 2012 for drug overdose. Yesterday afternoon patient noted sudden onset stabbing epigastric pain with radiation to subcostal area, somewhat pleuritic with shortness of breath. No prior episodes in the past. No OTC NSAID intake. No inordinate fatty meal. At the ER patient had relief of discomfort following Dilaudid, Protonix, and Carafate administration. Medical History as above 2014 EGD was normal Surgical History : Wrist surgery, appendectomy, strabismus surgery, cholecystectomy, BTL, tonsillectomy, cholecystectomy, eardrum surgery, gastric bypass Family History : Blood clots, heart disease, lung cancer Personal/Social history : Non-smoker, no EtOH intake, disabled Admission Exam Per Admitting Provider GENERAL: Slightly anxious , no respiratory distress SKIN: Normal color, warm HEENT: [place] palpebral conjunctivae, no ptosis, dry buccal mucosa NECK : Supple, short neck, no tenderness CHEST : CTA, no tenderness HEART : RRR, no obvious murmurs ABDOMEN: Some distention, epigastric tenderness EXTREMITIES : No LE swelling/tenderness, no other conspicuous deformities noted NEUROLOGIC : Coherent, no facial asymmetry, no other gross focality Principal Diagnosis Gastritis, concern for PUD Discharge Exam GENERAL: Middle-aged female, lying in bed, in no acute distress HEENT: Normocephalic, atraumatic, EOMI, pink palpebral conjunctivae, no ptosis NECK : Supple, short neck, no tenderness CHEST : CTA, no wheezing, rhonchi or crackles noted HEART : RRR, no obvious murmurs ABDOMEN: Some distention, positive bowel sounds, soft, obese, + mild epigastric tenderness SKIN: Normal color, warm, dry EXTREMITIES : No LE swelling/tenderness, moves extremities spontaneously NEUROLOGIC : Alert and oriented x3, no facial asymmetry, speech fluent, moves extremities spontaneously Discharge Data Allergies Allergy/AdvReac Type Severity Reaction Status Date / Time Iodinated Contrast Media Allergy Intermediate THROAT Verified 07/29/20 21:28 TIGHTENS, SHAKINESS venlafaxine Allergy Intermediate DIZZINESS, Verified 07/29/20 21:28 VOMITING acetaminophen Allergy Mild HIVES Verified 07/29/20 21:28 sumatriptan Allergy Mild HIVES Verified 07/29/20 21:28 valproic acid Allergy Mild Dizziness Verified 07/29/20 21:28 erythromycin base Allergy Unknown CAN'T Verified 07/29/20 21:28 REMEMBER ketorolac Allergy Unknown CAN'T Verified 07/29/20 21:28 REMEMBER prednisone Allergy Verified 07/29/20 21:28 oxycodone AdvReac Intermediate nausea Verified 07/29/20 21:28 mupirocin AdvReac Mild itching,cl Verified 07/29/20 21:28 h propoxyphene AdvReac Mild UPSET Verified 07/29/20 21:28 STOMACH Tea Allergy Mild HIVES, Uncoded 07/29/20 21:28 dizziness,sweating Consultations 07/30/20 09:37 Consult Gastroenterology Routine Ordered Studies 07/29/20 21:23 CT abd pelvis oral con only Urgent IMPRESSION: 1. No bowel wall thickening or obstruction. 2. Moderate constipation. 3. Postoperative changes consistent with prior Colt-en-Y gastric bypass. 4. Prior cholecystectomy. 07/30/20 02:26 US venous doppler LE BI Urgent IMPRESSION: No DVT within the right or left lower extremity. Pulmonary VQ scan FINDINGS: Normal perfusion seen throughout the lungs. No segmental defects identified. IMPRESSION: Normal perfusion scan. Echocardiogram 07/30/20 LV is normal in size. Normal LV wall thickness. LV wall motion is normal. EF 60 to 65%. There is no significant valvular disease. There is no pericardial effusion. Hospital Course (1) SOB (shortness of breath): Gastritis, concern for PUD Shortness of breath associated with subcostal/epigastric pain from possible gastritis Rule out PE given abnormal D-dimer Patient has elevated D-dimer, about 800 in the ED Patient has history of elevated D-dimers, in the past as well above 600 in 2013 in 2014 Doppler was obtained to rule out DVT in lower extremities, no DVT VQ scan was obtained as patient has IV contrast allergy, negative for PE Echocardiogram was also obtained, unremarkable Patient's epigastric pain responded well to Carafate GI consulted, given anemia and concern for PUD Recommend PPI twice daily, Carafate 1 g twice daily and outpatient follow-up for possible EGD Patient was also counseled on diet and lifestyle modifications regarding gastritis Chronic conditions: anxiety/mood/personality disorder as per records, at baseline history gastric bypass orthostatic hypotension as per records chronic anemia, Hg at baseline history of PCOS HSV on chronic suppressive therapy Disposition:home Follow-up with PCP and GI as outpatient Total Time Total Time Spent Total Time Spent (In Minutes): 40 Total Time Includes: Examination of the Patient, Discharge Planning, Medication Reconciliation and Communication With Other Providers Discharge Plan Discharge Items Patient Disposition: Home - Self-Care Reason For Visit: ABD PAIN Discharge Diagnosis: Gastritis, concern for PUD Activity: Per Instructions section Non-emergency contact: Primary Care Provider Call non-emergency contact if: you have any medication questions and your symptoms worsen Follow-up/Referrals: Meka Medrano DO [Primary Care Provider] - (Date & Time 08/05/2020 11:10 AM Provider Meka Medrano DO [facility] ) Diet: Other - See Diet Comment Diet Comment: Recommend to avoid any acidic, spicy foods or food /drink high in caffeine Addtl Attending Provider Instructions: Follow-up with your primary care doctor, the appointment was scheduled for you for August 05. Take Protonix twice a day, and Carafate 1 g twice daily. Avoid any NSAIDs medications, such as Aleve, ibuprofen. Also avoid tobacco and alcohol use as these can make your condition worse. Follow-up with gastroenterology, for possible EGD evaluation, you will be contacted about this appointment. Pending Studies at Discharge: No Stand-Alone Forms: [employer], Smoking Cessation Medications and DC Order Prescriptions: New sucralfate 100 mg/mL Suspension 1 g PO BID@0730,2230 Qty: 420 RF: 0 Continued valacyclovir 500 mg tablet 500 mg PO DAILY Qty: 30 RF: 2 albuterol sulfate [Ventolin HFA] 90 mcg/actuation HFA aerosol inhaler 2 puff INHALATION QID PRN (Reason: shortness of breath) Qty: 8.5 RF: 0 bupropion HCl 150 mg tablet sustained-release 12 hr 150 mg PO DAILY RF: 0 levothyroxine 50 mcg tablet 50 mcg PO QAM RF: 0 Flintstones Multivitamin Tablet,Chewable 1 tab PO DAILY RF: 0 Caltrate + D3 Plus Minerals 300 mg-800 unit -25 mg-0.5 mg Tablet 1 tab PO DAILY RF: 0 senna 8.6 mg capsule 8.6 mg PO DAILY PRN (Reason: constipation) Qty: 10 RF: 0 gabapentin 100 mg Capsule 0 mg PO UD RF: 0 Changed pantoprazole 40 mg tablet,delayed release (DR/EC) 40 mg PO BID Qty: 30 RF: 2 Discharge Orders: Discharge Order (Routine); Ordered 07/30/20 Ordered By: Maverick Tejeda/Other Patient Handouts: Tips to Control Acid Reflux, GERD Gastroesophageal Reflux ..., Discharge Instructions- Eating a ..., ED GERD (Adult) Admission Data Admit Date/Time: 07/30/20 02:32 Attending Provider: Maverick Alejandro Admit Provider: Omkar Larios Primary Care Provider: Meka Medrano Other Providers: Claudette Paula
[2020-07-30] MEDS ORDERED: SUCRALFATE 1 GM/10 ML UDC PO SCH (22:30)
--- NOTE | 2020-07-31 05:52 | Electrocardiogram Report ---
Test Reason : Blood Pressure : / mmHG Vent. Rate : 080 BPM Atrial Rate : 080 BPM P-R Int : 156 ms QRS Dur : 098 ms QT Int : 410 ms P-R-T Axes : 057 -17 025 degrees QTc Int : 472 ms Normal sinus rhythm Low voltage QRS Incomplete right bundle branch block Borderline ECG When compared with ECG of 15-DEC-2019 09:56, Nonspecific T wave abnormality now evident in Anterior leads Confirmed by Bobby Key ([id number]) on 07/31/2020 5:52:11 AM Referred By: REFERRED SELF Confirmed By:Bobby Key
[2020-08-01 07:32] LABS: 7-Aminoclonazepam DNR ng/mL (<25); Alpha-Hydroxyalprazolam DNR ng/mL (<25); Alphahydroxymidazolam DNR ng/mL (<50); Alphahydroxytriazolam DNR ng/mL (<50); Amobarbital DNR ng/mL (<100); Amphetamines, Ur NEGATIVE ng/mL (<500); Amphetemines Ur GC/MS DNR ng/mL (<250); Barbiturates, Urine NEGATIVE ng/mL (<300); Benzodiazepines,Ur NEGATIVE ng/mL (<100); Butalbital DNR ng/mL (<100); Cocaine, Urine NEGATIVE ng/mL (<150); Cocaine,Ur GC/MS DNR ng/mL (<100); Codeine NEGATIVE ng/mL (<50); Confirmatory Facility DNR; EDDP DNR ng/mL (<100); Hydrocodone NEGATIVE ng/mL (<50); Hydromorphone 191 ng/mL (<50); Hydroxyethylflurazepam DNR ng/mL (<50); Lorazepam DNR ng/mL (<50); Methadone, Ur GC/MS NEGATIVE ng/mL (<100); Methadone, Urine DNR ng/mL (<100); Methamphetamine DNR ng/mL (<250); Morphine NEGATIVE ng/mL (<50); Norhydrocodone NEGATIVE ng/mL (<50); Noroxycodone DNR ng/mL (<50); Opiates, Urine POSITIVE ng/mL (<100); Oxycodone,Ur Screen NEGATIVE ng/mL (<100); Pentobarbital DNR ng/mL (<100); Phencyclidine, Ur NEGATIVE ng/mL (<25); Phencyclidine,Ur GC/MS DNR ng/mL (<25); Secobarbital DNR ng/mL (<100); THC20, Qual, Urine NEGATIVE ng/mL (<20); Temazepam DNR ng/mL (<50); Tetrahydrocannabinol DNR ng/mL (<5)
--- NOTE | 2020-08-15 13:21 | Coding Letter ---
A supporting diagnosis is required for the test/procedure performed on this patient in order for us to be reimbursed by the patient's insurance. Please provide a supporting diagnosis for the following test/procedure listed below next to the test name along with your signature. *If there is no additional diagnosis for this patient that would support the following test/procedure please document that below next to the test/procedure. Test(s)/Procedure(s) that require a supporting diagnosis: * 75137 VENOUS DOPPLER LE DIAGNOSIS: DATE OF SERVICE: 07/30/20 Provider Signature: Date: Thank you Leighton Brumfield [facility] Information Management Once completed, please kindly fax back to [phone] For questions please call [phone] ADAM
--- NOTE | 2020-08-15 13:22 | Coding Query ---
A supporting diagnosis is required for the test/procedure performed on this patient in order for us to be reimbursed by the patient's insurance. Please provide a supporting diagnosis for the following test/procedure listed below next to the test name along with your signature. *If there is no additional diagnosis for this patient that would support the following test/procedure please document that below next to the test/procedure. Test(s)/Procedure(s) that require a supporting diagnosis: * [id number] VENOUS DOPPLER LE DIAGNOSIS: abn ddimer DATE OF SERVICE: 07/30/20 Provider Signature: JNO Date: _08/21/20 Thank you Leighton Brumfield [facility] Information Management Once completed, please kindly fax back to [phone] For questions please call [phone] ADAM
== END 2020-07-30 13:43 | disposition home or self-care (01) ==
LOC: ED 18:14 → INTOOBSV 07-30 02:32 → 2S 07-30 02:32

== ENCOUNTER 2021-10-08 08:24 | Inpatient (IN) ==
[2021-10-08] MEDS ORDERED: ONDANSETRON INJ 2 MG/ML 2 ML VIAL IV STA (08:53)
[2021-10-08] MEDS ORDERED: MoRPHine SULFATE 4 MG/ML 1 ML CARP\\VIAL IV STA ×2 (08:53→10:30)
--- NOTE | 2021-10-08 09:00 | Emergency Department Note ---
Impression & Plan Perforated abdominal viscus, Left-sided chest pain ED Provider Note INFORMANT: Patient and family ED PROVIDER(S): Heriberto Guallpa MD CHIEF COMPLAINT: chest pain PLAN: Disposition: Transferred to the OR emergently Condition: Guarded Outpatient prescription management: none Referral: None MEDICAL DECISION MAKING: Patient presented to the emergency department because of left-sided chest pain. On further history she also noted some epigastric abdominal pain and family noted that she was clutching her stomach earlier. A chest x-ray was performed during the work-up and she was found to have free air. Her ECG initially did not show any problems and repeat was unchanged as well. Her troponin was negative. The patient did have a D-dimer that was performed and was elevated. On record review the patient has had an elevated D-dimer the last 3 times it was measured. This 1 was slightly more elevated than the last. The patient has no stigmata of DVT. In light of her free air a CT scan of the abdomen was performed. This was done without contrast as the patient has a history of anaphylaxis. The patient was found to have a moderate amount of free air. I discussed this with the radiologist and it was felt that this could be from the stomach. Given her history of gastric bypass this was concerning and general surgery was consulted. I suspect that the patient's D-dimer was mildly elevated secondary to her perforation and previous chronic elevations. The patient was given additional morphine as well as Dilaudid. She was also given IV Zosyn. I did also start her on IV Pepcid and Protonix. The case was discussed with Dr. Bowie of general surgery. He evaluated the patient in the ER. He felt the patient needs intervention and asked for her surgeon in [place] to be contacted. We did attempt to contact [place] for many hours. After about 3 hours of attempt we did actually call Dr. Vidales's office as well and were directed back to the med call service as he was not in the office. Eventually my call did take down the information. The patient was reevaluated by Dr. Bowie in the emergency department and given the many hours since trying to contact [facility] he f elt the patient should be treated surgically. He took the patient emergently to the OR for further management. Around 1644 I did receive a call back from [facility] sales consultant and noted that the patient was taken for surgery. They felt that was reasonable and stated if there was any issues to contact med call and for the patient to follow-up with Dr. Vidales on discharge. Triage Nursing notes reviewed and agree them. Vital Signs: reviewed and remarkable for no significant abnormalities Differential diagnosis: Cardiac ischemia, aortic dissection, pulmonary embolism, pneumothorax, pneumonia, pericarditis, myocarditis, esophageal rupture, GERD, cholecystitis, pancreatitis, musculoskeletal, as well as other pathologies. Diagnostics interpreted by me: EC Lead ECG performed and revealed sinus bradycardic rhythm at 59, normal [place], QRS low voltage with IRBBB. No elevation or depression. No PACs or PVCs. NST changes. When compared to 07/15/20 there is no significant change. Cardiac Monitoring: Cardiac monitoring ordered by me: The patient was placed on continuous cardiac monitoring and observed. It revealed a normal sinus rhythm at 93beats per minute without ectopy or evidence of dysrhythmia. Imaging studies: Chest x-ray. Findings: A chest x-ray was performed and revealed no pneumothorax, effusion, infiltrate, pulmonary edema, free air under the diaphragm, or wide mediastinum. HPI: The patient is a 51 year old female who presents to the Emergency Room with complaints of left-sided chest pain. This started this morning at 7 AM and is persisting. It woke her up and she noted the pain was a 10 out of 10. It hurt to breathe and move. It hurt to press on the left upper chest. The patient also notes the following associated symptoms, cough and congestion for about a week. The patient has taken no medication for relieving factors. Current pain is rated as 8/10. Patient has history of gastric bypass but no cardiac history. Denies any abdominal symptoms. Pt denies LOC, headache, fevers, chills, diaphoresis, visual changes, neck pain, nausea, vomiting, abdominal pain, back pain, melena, hematochezia, urinary symptoms, numbness, weakness, lymphadenopathy, rash, or other complaints. ROS: See above HPI for pertinent positives & negatives. A total of 10 systems reviewed and were otherwise negative. PAST MEDICAL HISTORY:See Below , vertigo, cellulitis PAST SURGICAL HISTORY:See Below, gastric bypass FAMILY HISTORY:See Below SOCIAL HISTORY:See Below, no smoking HOME MEDICATIONS:See Below ALLERGIES:See Below VITALS:See Below PHYSICAL EXAMINATION: GENERAL: Awake, alert, uncomfortable-appearing, in no distress HENT: Normocephalic, atraumatic. Oropharynx unremarkable. EYES: Normal conjunctiva. Sclera non-icteric. NECK: Inspection normal. Non-tender. Supple. No nuchal rigidity. FROM. No masses. RESPIRATORY: Clear to auscultation. No wheezes. No rales. Normal respiratory effort. CARDIAC: Normal rate. Normal rhythm. No murmurs. No rubs. Extremities warm and well perfused. Pulses equal. No JVD. GI: Soft, non-distended. No tenderness to palpation. No rebound or guarding. No masses. RECTAL: Deferred. MUSCULOSKELETAL: Atraumatic. Chest examination reveals left-sided tenderness. The back is symmetrical on inspection without obvious abnormality. There is no CVA tenderness to palpation. No joint edema. LOWER EXTREMITIES: Calves are equal size bilaterally and non-tender. No edema. No discoloration. NEURO: Normal sensorium. No sensory or motor deficits noted. SKIN: No rash or jaundice noted. CRITICAL CARE: I have personally spent greater than 45 minutes of critical care time in the direct management of this patient. This includes bedside care, interpretation of diagnostic studies, and testing, discussion with consultants, patient, and family members, and other required patient management activities. These minutes are in excess of all separately billable procedures. Heriberto Guallpa MD Past Med/Surg History Medical History (Updated 10/08/21 @ 16:51 by Heriberto Guallpa MD) Anxiety BPV (benign positional vertigo) Bronchitis Dental infection External hemorrhoid Hypothyroid Low blood pressure Traumatic subdural hematoma (12/02/11) Upper respiratory infection Urinary tract infection Urinary tract infection Surgical History H/O bariatric surgery History of strabismus surgery S/P appendectomy S/P cardiac cath S/P cholecystectomy S/P ear surgery S/P knee surgery S/P tonsillectomy S/P tubal ligation S/P wrist surgery Family History Mother Asthma Aunt Bleeding disorder Family/Other Bleeding disorder Hypertension mother's side of the family Grandmother (Maternal) Lung cancer Social History Smoking Status: Never smoker Second Hand Exposure: No; Hx Alcohol Use: No Hx Substance Use: No Preferred Language: Georgian Communication Ability: Effective Curing Oven Attendant Required: No Beliefs That Will Affect Care: None Current Living Situation: Spouse current occupational status: unemployed and disabled Feels Safe at Home: Yes Assistive Devices: Glasses Allergies Allergies Allergy/AdvReac Type Severity Reaction Status Date / Time Iodinated Contrast Media Allergy Intermediate THROAT Verified 07/29/20 21:28 TIGHTENS, SHAKINESS venlafaxine Allergy Intermediate DIZZINESS, Verified 07/29/20 21:28 VOMITING acetaminophen Allergy Mild HIVES Verified 07/29/20 21:28 sumatriptan Allergy Mild HIVES Verified 07/29/20 21:28 valproic acid Allergy Mild Dizziness Verified 07/29/20 21:28 erythromycin base Allergy Unknown CAN'T Verified 07/29/20 21:28 REMEMBER ketorolac Allergy Unknown CAN'T Verified 07/29/20 21:28 REMEMBER prednisone Allergy Verified 07/29/20 21:28 oxycodone AdvReac Intermediate nausea Verified 07/29/20 21:28 mupirocin AdvReac Mild itching,cl Verified 07/29/20 21:28 h propoxyphene AdvReac Mild UPSET Verified 07/29/20 21:28 STOMACH Tea Allergy Mild HIVES, Uncoded 07/29/20 21:28 dizziness,sweating Home Meds Home Medications Medication Instructions Recorded Confirmed bupropion HCl 150 mg tablet,12 hr 150 mg PO DAILY 11/27/18 10/08/21 sustained-release levothyroxine 50 mcg tablet 50 mcg PO QAM 11/27/18 10/08/21 Previous Rx's Medication Instructions Recorded pantoprazole 40 mg tablet,delayed 40 mg PO BID 30 Days #60 tab 07/30/20 release Results & Data (ED) Vital Signs Vital Signs - 24 hr 10/08/21 08:34 10/08/21 08:47 10/08/21 09:00 Temperature 36.6 C Temperature Source Oral Pulse Rate 64 68 65 Pulse Rate [Radial] 68 Pulse Rate from SpO2 Sensor 69 64 Pulse Rhythm Regular Regular Pulse Rhythm [Radial] Regular Pulse Strength Normal Pulse Strength [Radial] Normal Respiratory Rate 14 11 L 22 Respiratory Effort / Characteristics Non-Labored Respiratory Depth Normal Respiratory Pattern Regular Blood Pressure 114/73 134/91 Blood Pressure [Left Arm] 114/73 Blood Pressure Mean 86 105 Blood Pressure Mean [Left Arm] 86 Blood Pressure Position Lying Blood Pressure Position [Left Arm] Lying Pulse Oximetry 98 98 97 Oxygen Delivery Method Room Air Room Air Sepsis Recent Fever Within 48 Hours No Sepsis New/Unexplained Change in Mental Status No Sepsis Action Taken by Nursing No Action Required 10/08/21 09:30 10/08/21 10:00 10/08/21 10:30 Temperature Temperature Source Pulse Rate 56 L 70 72 Pulse Rate [Radial] 91 H Pulse Rate from SpO2 Sensor 57 L 70 72 Pulse Rhythm Pulse Rhythm [Radial] Regular Pulse Strength Pulse Strength [Radial] Respiratory Rate 24 20 17 Respiratory Effort / Characteristics Non-Labored Respiratory Depth Normal Respiratory Pattern Blood Pressure 112/69 114/75 106/76 Blood Pressure [Left Arm] 101/66 Blood Pressure Mean 83 88 86 Blood Pressure Mean [Left Arm] 77 Blood Pressure Position Blood Pressure Position [Left Arm] Lying Pulse Oximetry 94 95 97 Oxygen Delivery Method Room Air Sepsis Recent Fever Within 48 Hours Sepsis New/Unexplained Change in Mental Status Sepsis Action Taken by Nursing 10/08/21 10:50 10/08/21 11:00 10/08/21 11:30 Temperature Temperature Source Pulse Rate 74 82 94 H Pulse Rate [Radial] Pulse Rate from SpO2 Sensor 75 83 91 H Pulse Rhythm Pulse Rhythm [Radial] Pulse Strength Pulse Strength [Radial] Respiratory Rate 22 19 18 Respiratory Effort / Characteristics Respiratory Depth Respiratory Pattern Blood Pressure 101/66 118/79 92/61 L Blood Pressure [Left Arm] Blood Pressure Mean 77 92 71 Blood Pressure Mean [Left Arm] Blood Pressure Position Blood Pressure Position [Left Arm] Pulse Oximetry 98 96 96 Oxygen Delivery Method Sepsis Recent Fever Within 48 Hours Sepsis New/Unexplained Change in Mental Status Sepsis Action Taken by Nursing 10/08/21 12:00 10/08/21 12:09 10/08/21 12:30 Temperature Temperature Source Pulse Rate 87 78 Pulse Rate [Radial] 88 Pulse Rate from SpO2 Sensor 85 78 Pulse Rhythm Pulse Rhythm [Radial] Pulse Strength Pulse Strength [Radial] Respiratory Rate 20 16 15 Respiratory Effort / Characteristics Non-Labored Respiratory Depth Normal Respiratory Pattern Blood Pressure 96/67 L 119/78 Blood Pressure [Left Arm] 96/67 L Blood Pressure Mean 76 91 Blood Pressure Mean [Left Arm] 76 Blood Pressure Position Blood Pressure Position [Left Arm] Pulse Oximetry 97 97 96 Oxygen Delivery Method Room Air Sepsis Recent Fever Within 48 Hours Sepsis New/Unexplained Change in Mental Status Sepsis Action Taken by Nursing 10/08/21 13:00 10/08/21 13:30 10/08/21 13:31 Temperature Temperature Source Pulse Rate 78 86 88 Pulse Rate [Radial] Pulse Rate from SpO2 Sensor 78 86 87 Pulse Rhythm Pulse Rhythm [Radial] Pulse Strength Pulse Strength [Radial] Respiratory Rate 18 16 14 Respiratory Effort / Characteristics Respiratory Depth Respiratory Pattern Blood Pressure 81/58 L 113/85 119/71 Blood Pressure [Left Arm] Blood Pressure Mean 65 94 87 Blood Pressure Mean [Left Arm] Blood Pressure Position Blood Pressure Position [Left Arm] Pulse Oximetry 97 97 97 Oxygen Delivery Method Sepsis Recent Fever Within 48 Hours Sepsis New/Unexplained Change in Mental Status Sepsis Action Taken by Nursing 10/08/21 14:00 10/08/21 14:35 10/08/21 15:00 Temperature Temperature Source Pulse Rate 94 H 115 H 95 H Pulse Rate [Radial] Pulse Rate from SpO2 Sensor 94 H 93 H Pulse Rhythm Pulse Rhythm [Radial] Pulse Strength Pulse Strength [Radial] Respiratory Rate 18 17 Respiratory Effort / Characteristics Respiratory Depth Respiratory Pattern Blood Pressure 129/82 111/77 Blood Pressure [Left Arm] Blood Pressure Mean 97 88 Blood Pressure Mean [Left Arm] Blood Pressure Position Blood Pressure Position [Left Arm] Pulse Oximetry 96 94 Oxygen Delivery Method Sepsis Recent Fever Within 48 Hours Sepsis New/Unexplained Change in Mental Status Sepsis Action Taken by Nursing 10/08/21 15:23 10/08/21 15:28 Temperature 37.0 C Temperature Source Oral Pulse Rate Pulse Rate [Radial] 93 H Pulse Rate from SpO2 Sensor Pulse Rhythm Pulse Rhythm [Radial] Regular Pulse Strength Pulse Strength [Radial] Normal Respiratory Rate 18 Respiratory Effort / Characteristics Non-Labored Spontaneous Respiratory Depth Normal Respiratory Pattern Regular Blood Pressure Blood Pressure [Left Arm] 121/81 Blood Pressure Mean Blood Pressure Mean [Left Arm] 94 Blood Pressure Position Blood Pressure Position [Left Arm] Semi-fowlers Pulse Oximetry 95 Oxygen Delivery Method Room Air Room Air Sepsis Recent Fever Within 48 Hours Sepsis New/Unexplained Change in Mental Status Sepsis Action Taken by Nursing Laboratory Data Result diagrams: 10/08/21 08:52 10/08/21 10:04 Lab Results 10/08/21 10/08/21 10/08/21 Range/Units 08:52 08:52 08:52 WBC 8.27 (4.8-10.8) K/uL RBC 5.21 (4.2-5.4) M/uL Hgb 14.4 (12.0-16.0) g/dL Hct 45.8 (37-47) % MCV 87.9 (80-100) fL MCH 27.6 (25-34) pg MCHC 31.4 L (32-36) g/dL RDW Std Deviation 62.8 H (36.4-46.3) fL RDW Coeff of [place] 19.3 H (11.5-14.5) % Plt Count 251 (130-400) K/uL MPV 10.8 H (7.4-10.4) fL Immature Gran % (Auto) 0.1 % Neut % (Auto) 58.3 % Lymph % (Auto) 31.3 % [place] % (Auto) 7.4 % Eos % (Auto) 2.7 % Baso % (Auto) 0.2 % Neut # (Auto) 4.82 (1.4-6.5) K/uL Lymph # (Auto) 2.59 (1.2-3.4) K/uL [place] # (Auto) 0.61 H (0.11-0.59) K/uL Eos # (Auto) 0.22 (0-0.5) K/uL Baso # (Auto) 0.02 (0-0.2) K/uL Immature Gran # (Auto) 0.01 (0.00-0.02) K/uL PT 10.3 (9.0-12.0) Seconds INR 1.0 (0.9-1.1) APTT 23.9 (21.0-31.0) Seconds PTT Ratio 0.9 D-Dimer 1090 H* (0-500) ug/L FEU Sodium 141 (136-145) mmol/L Potassium (3.5-5.1) mmol/L Chloride 111 H (98-107) mmol/L Carbon Dioxide 27 (21-32) mmol/L Anion Gap 3.0 (3-11) BUN 8 (7-18) mg/dl Creatinine 0.97 (0.6-1.2) mg/dl Est Cr Clr Drug Dosing 72.1 ml/min Est GFR ( Amer) 77.3 ml/min Est GFR (Non-Af Amer) 66.7 ml/min BUN/Creatinine Ratio 8.0 L (10-20) Glucose 103 H (70-99) mg/dl Calcium 8.7 (8.5-10.1) mg/dl Total Bilirubin 0.3 (0.2-1) mg/dl AST (15-37) U/L ALT 27 (12-78) Alkaline Phosphatase 92 (45-117) U/L Troponin I < 0.015 (0-0.045) ng/ml Total Protein 7.8 (6.4-8.2) gm/dl Albumin 3.6 (3.4-5.0) gm/dl Globulin 4.2 H (2.5-4.0) gm/dl Albumin/Globulin Ratio 0.9 (0.9-2) HCG, Qual (Negative) POC Ur Test (NEG) SARS-CoV-2, RNA, NAAT (NEGATIVE) 10/08/21 10/08/21 10/08/21 Range/Units 09:46 10:04 10:04 WBC (4.8-10.8) K/uL RBC (4.2-5.4) M/uL Hgb (12.0-16.0) g/dL Hct (37-47) % MCV (80-100) fL MCH (25-34) pg MCHC (32-36) g/dL RDW Std Deviation (36.4-46.3) fL RDW Coeff of [place] (11.5-14.5) % Plt Count (130-400) K/uL MPV (7.4-10.4) fL Immature Gran % (Auto) % Neut % (Auto) % Lymph % (Auto) % [place] % (Auto) % Eos % (Auto) % Baso % (Auto) % Neut # (Auto) (1.4-6.5) K/uL Lymph # (Auto) (1.2-3.4) K/uL [place] # (Auto) (0.11-0.59) K/uL Eos # (Auto) (0-0.5) K/uL Baso # (Auto) (0-0.2) K/uL Immature Gran # (Auto) (0.00-0.02) K/uL PT (9.0-12.0) Seconds INR (0.9-1.1) APTT (21.0-31.0) Seconds PTT Ratio D-Dimer (0-500) ug/L FEU Sodium (136-145) mmol/L Potassium 4.3 (3.5-5.1) mmol/L Chloride (98-107) mmol/L Carbon Dioxide (21-32) mmol/L Anion Gap (3-11) BUN (7-18) mg/dl Creatinine (0.6-1.2) mg/dl Est Cr Clr Drug Dosing ml/min Est GFR ( Amer) ml/min Est GFR (Non-Af Amer) ml/min BUN/Creatinine Ratio (10-20) Glucose (70-99) mg/dl Calcium (8.5-10.1) mg/dl Total Bilirubin (0.2-1) mg/dl AST 25 (15-37) U/L ALT (12-78) Alkaline Phosphatase (45-117) U/L Troponin I (0-0.045) ng/ml Total Protein (6.4-8.2) gm/dl Albumin (3.4-5.0) gm/dl Globulin (2.5-4.0) gm/dl Albumin/Globulin Ratio (0.9-2) HCG, Qual Negative (Negative) POC Ur Test NEG (NEG) SARS-CoV-2, RNA, NAAT (NEGATIVE) 10/08/21 Range/Units Unknown WBC (4.8-10.8) K/uL RBC (4.2-5.4) M/uL Hgb (12.0-16.0) g/dL Hct (37-47) % MCV (80-100) fL MCH (25-34) pg MCHC (32-36) g/dL RDW Std Deviation (36.4-46.3) fL RDW Coeff of [place] (11.5-14.5) % Plt Count (130-400) K/uL MPV (7.4-10.4) fL Immature Gran % (Auto) % Neut % (Auto) % Lymph % (Auto) % [place] % (Auto) % Eos % (Auto) % Baso % (Auto) % Neut # (Auto) (1.4-6.5) K/uL Lymph # (Auto) (1.2-3.4) K/uL [place] # (Auto) (0.11-0.59) K/uL Eos # (Auto) (0-0.5) K/uL Baso # (Auto) (0-0.2) K/uL Immature Gran # (Auto) (0.00-0.02) K/uL PT (9.0-12.0) Seconds INR (0.9-1.1) APTT (21.0-31.0) Seconds PTT Ratio D-Dimer (0-500) ug/L FEU Sodium (136-145) mmol/L Potassium (3.5-5.1) mmol/L Chloride (98-107) mmol/L Carbon Dioxide (21-32) mmol/L Anion Gap (3-11) BUN (7-18) mg/dl Creatinine (0.6-1.2) mg/dl Est Cr Clr Drug Dosing ml/min Est GFR ( Amer) ml/min Est GFR (Non-Af Amer) ml/min BUN/Creatinine Ratio (10-20) Glucose (70-99) mg/dl Calcium (8.5-10.1) mg/dl Total Bilirubin (0.2-1) mg/dl AST (15-37) U/L ALT (12-78) Alkaline Phosphatase (45-117) U/L Troponin I (0-0.045) ng/ml Total Protein (6.4-8.2) gm/dl Albumin (3.4-5.0) gm/dl Globulin (2.5-4.0) gm/dl Albumin/Globulin Ratio (0.9-2) HCG, Qual (Negative) POC Ur Test (NEG) SARS-CoV-2, RNA, NAAT NEGATIVE (NEGATIVE) Administered Medications Hydromorphone HCl (Hydromorphone Inj 0.5 Mg/0.5 Ml Syr) 0.5 mg IV Q15M PRN PRN Reason: Pain Stop: 10/22/21 13:31 Last Admin: 10/08/21 13:38 Dose: 0.5 mg Documented by: [id number] Pantoprazole Sodium 40 mg/ (Dextrose) 100 mls @ 20 mls/hr IV Q5H TEDDY Stop: 11/07/21 11:29 Last Admin: 10/08/21 12:10 Dose: 8 mg/hr, 20 mls/hr Documented by: [id number] Discontinued Medications Cefoxitin Sodium (Cefoxitin Sod 1 Gm Vial) Confirm Administered Dose 2,000 mg .ROUTE .STK-MED ONE Stop: 10/08/21 14:58 Last Admin: 10/08/21 16:20 Dose: 1 mg Documented by: [id number] Famotidine (Famotidine 20mg/5ml Iv Push) 20 mg IV ONE STA Stop: 10/08/21 11:02 Last Admin: 10/08/21 11:23 Dose: 20 mg Documented by: [id number] Piperacillin Sod/Tazobactam Sod (Zosyn) 4.5 gm in 120 mls @ 240 mls/hr IV NOW ONE Stop: 10/08/21 11:30 Last Infusion: 10/08/21 12:16 Dose: 0 mls/hr Documented by: [id number] Admin: 10/08/21 11:28 Dose: 240 mls/hr Documented by: [id number] Pantoprazole Sodium (Protonix Bolus/Drip) 0 mls @ 1 mls/hr IV ONE STA Stop: 10/08/21 11:02 Last Admin: 10/08/21 12:39 Dose: Not Given Documented by: [id number] Pantoprazole Sodium 80 mg/ (Dextrose) 120 mls @ 400 mls/hr IV NOW ONE Stop: 10/08/21 11:18 Last Infusion: 10/08/21 12:16 Dose: 0 mls/hr Documented by: [id number] Admin: 10/08/21 11:45 Dose: 400 mls/hr Documented by: [id number] Morphine Sulfate (Morphine Sulfate 4 Mg/Ml 1 Ml Carp\Vial) 4 mg IV NOW STA Stop: 10/08/21 08:54 Last Admin: 10/08/21 09:00 Dose: 4 mg Documented by: [id number] Morphine Sulfate (Morphine Sulfate 4 Mg/Ml 1 Ml Carp\Vial) 4 mg IV NOW STA Stop: 10/08/21 10:31 Last Admin: 10/08/21 10:45 Dose: 4 mg Documented by: [id number] Ondansetron HCl (Ondansetron Inj 2 Mg/Ml 2 Ml Vial) 4 mg IV NOW STA Stop: 10/08/21 08:54 Last Admin: 10/08/21 09:00 Dose: 4 mg Documented by: [id number] Imaging Data Radiologist's Impression: Chest X-Ray 10/08/21 08:54 XR chest 1V portable CLINICAL HISTORY: left chest pain TECHNIQUE: Single frontal radiograph of the chest was obtained. Comparison: Comparison is made to chest one view 07/30/2020 FINDINGS: No lines and tubes are seen. The cardiomediastinal silhouette is normal. The lungs are clear. No evidence of pleural effusion or pneumothorax. There is seen under the left hemidiaphragm. IMPRESSION: Air is noted under the left hemidiaphragm. There may also be a trace of air under the right hemidiaphragm as well. Although these findings may represent gastric/intestinal air, dedicated upright abdominal radiograph is recommended to exclude pneumoperitoneum. ACT 112: Negative or not required by law. Electronically signed by: Juan Long M.D. 10/08/2021 9:13 AM Abdomen/Pelvis CT 10/08/21 09:[address] WITHOUT CONTRAST CT DOSE: 1000.75 mGycm HISTORY: Left-sided abdominal pain. ?free air in the abdomen on CXR TECHNIQUE: Multiaxial CT images of the abdomen and pelvis were performed without contrast. A dose lowering technique was utilized adhering to the principles of ALARA. COMPARISON STUDY: Abdomen and pelvis CT 07/29/2020. FINDINGS: Trace left pleural effusion with mild elevation of the left hemidiaphragm. Small amount of pneumoperitoneum within the upper abdomen. No fractures within the visualized osseous structures. Postoperative changes consistent with prior Colt-en-Y gastric bypass. Exact location of the bowel perforation is not clearly identified on this study but could be from the gastric pouch best seen on image 60. Trace pelvic free fluid. The uterus, bladder, and bilateral adnexa are unremarkable. A few colonic diverticula. No evidence for acute diverticulitis. No dilated loops of bowel to suggest an obstruction. Cholecystectomy. The unenhanced liver, spleen, adrenal glands, pancreas, and kidneys are unremarkable. No retroperitoneal lymphadenopathy. Normal caliber abdominal aorta. Prior appendectomy. IMPRESSION: 1. Small amount of pneumoperitoneum. This likely represents bowel perforation. The exact location is not clearly identified on this study but may be located at the gastric pouch as described above. 2. Status post Colt-en-Y gastric bypass. 3. No evidence for bowel obstruction. 4. Trace pelvic fluid. 5. Trace left pleural effusion. ACT 112: Negative or not required by law. Electronically signed by: Lonnie Abernathy M.D. 10/08/2021 11:11 AM Discharge Plan Visit Data Chief Complaint: Chest Pain Stated Complaint: CHEST PAIN ED Provider: Heriberto Guallpa Discharge Problem: Perforated abdominal viscus, Left-sided chest pain Discharge Instructions Interventions: ED Discharge Assessment Last Done: 10/08/21 15:23
[2021-10-08 09:03] LABS: Basophils # (auto) 0.02 K/uL (0-0.2); Basophils % (auto) 0.2 %; Eosinophils # (auto) 0.22 K/uL (0-0.5); Eosinophils % (auto) 2.7 %; Hematocrit (blood only) 45.8 % (37-47); Hemoglobin 14.4 g/dL (12.0-16.0); Immature Granulocytes # (auto) 0.01 K/uL (0.00-0.02); Immature Granulocytes % (auto) 0.1 %; Lymphocytes # (auto) 2.59 K/uL (1.2-3.4); Lymphocytes % (auto) 31.3 %; Mean Corpuscular Hemoglobin 27.6 pg (25-34); Mean Corpuscular Hgb Conc 31.4 g/dL (32-36); Mean Corpuscular Volume 87.9 fL (80-100); Mean Platelet Volume 10.8 fL (7.4-10.4); Monocytes # (auto) 0.61 K/uL (0.11-0.59); Monocytes % (auto) 7.4 %; Neutrophils # (auto) 4.82 K/uL (1.4-6.5); Neutrophils % (auto) 58.3 %; Platelet Count 251 K/uL (130-400); RDW Coefficient of Variation 19.3 % (11.5-14.5); RDW Standard Deviation 62.8 fL (36.4-46.3); Red Blood Count 5.21 M/uL (4.2-5.4); White Blood Count 8.27 K/uL (4.8-10.8)
--- NOTE | 2021-10-08 09:14 | XRay Report ---
XR chest 1V portable CLINICAL HISTORY: left chest pain TECHNIQUE: Single frontal radiograph of the chest was obtained. Comparison: Comparison is made to chest one view 07/30/2020 FINDINGS: No lines and tubes are seen. The cardiomediastinal silhouette is normal. The lungs are clear. No evid ence of pleural effusion or pneumothorax. There is seen under the left hemidiaphragm. IMPRESSION: Air is noted under the left hemidiaphragm. There may also be a trace of air under the right hemidiaph ragm as well. Although these findings may represent gastric/intestinal air, dedicated upright abdomin al radiograph is recommended to exclude pneumoperitoneum. ACT 112: Negative or not required by law. Electronically signed by: Juan Long M.D. 10/08/2021 9:13 AM
[2021-10-08 09:20] LABS: Partial Thromboplastin Ratio 0.9; Partial Thromboplastin Time 23.9 Seconds (21.0-31.0); Prothrombin Time 10.3 Seconds (9.0-12.0)
[2021-10-08 09:24] LABS: D Dimer 1090 ug/L FEU (0-500)
[2021-10-08 09:35] LABS: Alanine Aminotransferase 27 (12-78); Albumin Globulin Ratio 0.9 (0.9-2); Albumin Level 3.6 gm/dl (3.4-5.0); Alkaline Phosphatase 92 U/L (45-117); Bilirubin,Total 0.3 mg/dl (0.2-1); Blood Urea Nitrogen 8 mg/dl (7-18); Calcium 8.7 mg/dl (8.5-10.1); Carbon Dioxide 27 mmol/L (21-32); Chloride 111 mmol/L (98-107); Creatinine Clr Calc Pharmacy 72.1 ml/min; Est GFR (African American) 77.3 ml/min; Est GFR (Non-African American) 66.7 ml/min; Globulin 4.2 gm/dl (2.5-4.0); Glucose 103 mg/dl (70-99); Sodium 141 mmol/L (136-145); Total Protein 7.8 gm/dl (6.4-8.2); Troponin I < 0.015 ng/ml (0-0.045)
[2021-10-08 10:32] LABS: Potassium 4.3 mmol/L (3.5-5.1)
[2021-10-08 10:38] LABS: Pregnancy Test, Serum Negative (Negative)
[2021-10-08] MEDS ORDERED: PIPERACILLIN/TAZOBACTAM 4.5 GM/120 ML BAG IV ONE (11:01)
[2021-10-08] MEDS ORDERED: PANTOprazole 80 MG in DEXTROSE 5% 100 ML IV ONE (11:01)
[2021-10-08] MEDS ORDERED: PIPERACILL/TAZOBAC CONSULT ACTIVE PRN ×2 (11:01→18:26)
[2021-10-08] MEDS ORDERED: FAMOTIDINE 20MG/5ML IV PUSH IV STA (11:01)
--- NOTE | 2021-10-08 11:11 | History & Physical Report ---
Date of Service October 08, 2021 Assessment & Plan (1) Pneumoperitoneum: Plan: This is a 51yF with a PMH of gastric bypass performed [address] Baltazar Mejia who presents to the [facility] on 10/08/20 with complaints of upper abdominal pain starting this AM from her sleep. Workup in the ER revealed concern for pneumoperitoneum with concern for bowel perforation, no clear location identified, but may be at the area of gastric pouch. Of note this happened in 09/2019 and she was apparently transferred back to [place] under Dr. Mejia's care and managed medically. Today WBC 8. Vital signs are currently stable. Our recommendations would be for patient to be transferred back to [place] under Dr. Mejia given her history of gastric bypass 2 years ago. If there are issues related to bed availability we will admit her to our ICU and give patient a trial of supportive care with bowel rest, IVF, and IV abx and see how she fairs as she is currently stable. We would obtain a hospitalists consult for medical management. History of Present Illness Primary Care Provider: Meka Medrano DO This is a 51yF with a PMH of gastric bypass performed [address] Baltazar Mejia who presents to the [facility] on 10/08/20 with complaints of upper abdominal pain starting this AM awakening her from her sleep. Pain located in epigastric region. She denies any nausea/vomiting, or fevers. Says she felt some sweats/chills last night. Of note she was here in September 2019 with similar symptoms and a CT scan showed concern for free air in the upper abdomen. She was transferred back to [place] at that time and she says she was managed medically for perforation. Today she underwent a CT a/p that shows concern for pneumoperitoneum with concern for bowel perforation, no clear location identified, but may be at the area of gastric pouch. The patient's previous abdominal surgical history includes an appendectomy and cholecystectomy. She last ate yesterday around 9pm Allergies Allergy/AdvReac Type Severity Reaction Status Date / Time Iodinated Contrast Media Allergy Intermediate THROAT Verified 07/29/20 21:28 TIGHTENS, SHAKINESS venlafaxine Allergy Intermediate DIZZINESS, Verified 07/29/20 21:28 VOMITING acetaminophen Allergy Mild HIVES Verified 07/29/20 21:28 sumatriptan Allergy Mild HIVES Verified 07/29/20 21:28 valproic acid Allergy Mild Dizziness Verified 07/29/20 21:28 erythromycin base Allergy Unknown CAN'T Verified 07/29/20 21:28 REMEMBER ketorolac Allergy Unknown CAN'T Verified 07/29/20 21:28 REMEMBER prednisone Allergy Verified 07/29/20 21:28 oxycodone AdvReac Intermediate nausea Verified 07/29/20 21:28 mupirocin AdvReac Mild itching,cl Verified 07/29/20 21:28 h propoxyphene AdvReac Mild UPSET Verified 07/29/20 21:28 STOMACH Tea Allergy Mild HIVES, Uncoded 07/29/20 21:28 dizziness,sweating Home Medications Medication Instructions Recorded Confirmed Type bupropion HCl 150 mg tablet,12 hr 150 mg PO DAILY 11/27/18 10/08/21 History sustained-release levothyroxine 50 mcg tablet 50 mcg PO QAM 11/27/18 10/08/21 History pantoprazole 40 mg tablet,delayed 40 mg PO BID 30 Days #60 tab 07/30/20 10/08/21 Rx release Past Med/Surg History Medical History (Updated 10/08/21 @ 11:22 by Carly Caballero PA-C) BPV (benign positional vertigo) Bronchitis Dental infection External hemorrhoid Low blood pressure Traumatic subdural hematoma (12/02/11) Upper respiratory infection Urinary tract infection Urinary tract infection Surgical History H/O bariatric surgery History of strabismus surgery S/P appendectomy S/P cardiac cath S/P cholecystectomy S/P ear surgery S/P knee surgery S/P tonsillectomy S/P tubal ligation S/P wrist surgery Family History Mother Asthma Aunt Bleeding disorder Family/Other Bleeding disorder Hypertension mother's side of the family Grandmother (Maternal) Lung cancer Social History Smoking Status: Never smoker Second Hand Exposure: No; Hx Alcohol Use: No Hx Substance Use: No Preferred Language: Kinyarwanda Communication Ability: Effective Wooling 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 Required: No Beliefs That Will Affect Care: None Current Living Situation: Spouse current occupational status: unemployed and disabled Feels Safe at Home: Yes Assistive Devices: Glasses Review of Systems Constitutional: + chills and + sweats; no fever Gastrointestinal: + abdominal pain; no nausea and no vomiting Physical Exam Physical Exam: awake/alert Constitutional: mild distress with pain Respiratory: normal respiratory effort Gastrointestinal (Abdomen): Inspection/Auscultation: + abdominal surgical scar Percussion/Palpation: + abdomen tender (epigastric ttp) and abdomen soft Results & Data Results & Data ([facility]) Vital Signs (Past 12 Hours) Vital Signs Temp Pulse Pulse Resp BP BP Pulse Ox 10/08/21 10:30 91 H 18 101/66 97 10/08/21 09:30 56 L 24 112/69 94 10/08/21 09:00 65 22 134/91 97 10/08/21 08:47 68 11 L 98 10/08/21 08:34 36.6 C 64 68 14 114/73 114/73 98 Diagnostic Findings ABDOMEN AND PELVIS CT WITHOUT CONTRAST CT DOSE: 1000.75 mGycm HISTORY: Left-sided abdominal pain. ?free air in the abdomen on CXR TECHNIQUE: Multiaxial CT images of the abdomen and pelvis were performed without contrast. A dose lowering technique was utilized adhering to the principles of ALARA. COMPARISON STUDY: Abdomen and pelvis CT 07/29/2020. FINDINGS: Trace left pleural effusion with mild elevation of the left hem idiaphragm. Small amount of pneumoperitoneum within the upper abdomen. No fractures within the visualized osseous structures. Postoperative changes consistent with prior Colt-en-Y gastric bypass. Exact location of the bowel perforation is not clearly identified on this study but could be from the gastric pouch best seen on image 60. Trace pelvic free fluid. The uterus, bladder, and bilateral adnexa are unremarkable. A few colonic diverticula. No evidence for acute diverticulitis. No dilated loops of bowel to suggest an obstruction. Cholecystectomy. The unenhanced liver, spleen, adrenal glands, pancreas, and kidneys are unremarkable. No retroperitoneal lymphadenopathy. Normal caliber abdominal aorta. Prior appendectomy. IMPRESSION: 1. Small amount of pneumoperitoneum. This likely represents bowel perforation. The exact location is not clearly identified on this study but may be located at the gastric pouch as described above. 2. Status post Colt-en-Y gastric bypass. 3. No evidence for bowel obstruction. 4. Trace pelvic fluid. 5. Trace left pleural effusion. ACT 112: Negative or not required by law. Electronically signed by: Lonnie Abernathy M.D. 10/08/2021 11:11 AM Supervising Physician Co-Signing Physician Notes As per Ms. Caballero's note-we will attempt to contact her bariatric surgeon in [place] and discuss her case with him. If they are unable to take the patient because of a bed situation I do feel she is stable enough to admit to the ICU Keep n.p.o., IV antibiotics, proton pump inhibitor Monitor very closely and try to avoid exploratory laparotomy if possible Currently her vital signs are stable and her white count is 8 and her pain is controlled PG Care Time/CCT Total # of Minutes Spent Total Time Spent with Patient: Total time spent is greater than 50% in coordination of care (as documented) at patient's floor/unit and/or counseling patient: Coding Level of Care Code 70660 Initial Inpt Care Lvl 1 Diagnoses Pneumoperitoneum K66.8
--- NOTE | 2021-10-08 11:12 | CT Scan Report ---
ABDOMEN AND PELVIS CT WITHOUT CONTRAST CT DOSE: 1000.75 mGycm HISTORY: Left-sided abdominal pain. ?free air in the abdomen on CXR TECHNIQUE: Multiaxial CT images of the abdomen and pelvis were performed without contrast. A dose lo wering technique was utilized adhering to the principles of ALARA. COMPARISON STUDY: Abdomen and pelvis CT 07/29/2020. FINDINGS: Trace left pleural effusion with mild elevation of the left hemidiaphragm. Small amount of pneumoperitoneum within the upper abdomen. No fractures within the visualized osseous structures. Pos toperative changes consistent with prior Colt-en-Y gastric bypass. Exact location of the bowel perfor ation is not clearly identified on this study but could be from the gastric pouch best seen on image 60. Trace pelvic free fluid. The uterus, bladder, and bilateral adnexa are unremarkable. A few coloni c diverticula. No evidence for acute diverticulitis. No dilated loops of bowel to suggest an obstruct ion. Cholecystectomy. The unenhanced liver, spleen, adrenal glands, pancreas, and kidneys are unremar kable. No retroperitoneal lymphadenopathy. Normal caliber abdominal aorta. Prior appendectomy. IMPRESSION: 1. Small amount of pneumoperitoneum. This likely represents bowel perforation. The exact location is not clearly identified on this study but may be located at the gastric pouch as described above. 2. Status post Colt-en-Y gastric bypass. 3. No evidence for bowel obstruction. 4. Trace pelvic fluid. 5. Trace left pleural effusion. ACT 112: Negative or not required by law. Electronically signed by: Lonnie Abernathy M.D. 10/08/2021 11:11 AM
[2021-10-08] MEDS: PANTOPRAZOLE BOLUS/DRIP 1 EA IV STA ×2 (11:45→12:39)
[2021-10-08] MEDS: PANTOprazole 40 MG in DEXTROSE 5% 100 ML IV SCH ×2 (12:10→18:28)
--- NOTE | 2021-10-08 13:01 | Electrocardiogram Report ---
Test Reason : Blood Pressure : / mmHG Vent. Rate : 059 BPM Atrial Rate : 059 BPM P-R Int : 132 ms QRS Dur : 096 ms QT Int : 442 ms P-R-T Axes : 029 -22 009 degrees QTc Int : 437 ms Sinus bradycardia Low voltage QRS Incomplete right bundle branch block Borderline ECG When compared with ECG of 30-JUL-2020 00:35, Nonspecific T wave abnormality no longer evident in Anterior leads Confirmed by David Dee ([id number]) on 10/08/2021 1:01:12 PM Referred By: Confirmed By:David Dee
--- NOTE | 2021-10-08 13:08 | Electrocardiogram Report ---
Test Reason : Blood Pressure : / mmHG Vent. Rate : 070 BPM Atrial Rate : 070 BPM P-R Int : 144 ms QRS Dur : 090 ms QT Int : 424 ms P-R-T Axes : 038 -40 002 degrees QTc Int : 457 ms Normal sinus rhythm Left axis deviation Low voltage QRS Nonspecific T wave abnormality Abnormal ECG When compared with ECG of 08-OCT-2021 08:28, (unconfirmed) Nonspecific T wave abnormality now evident in Anterolateral leads Confirmed by David Dee ([id number]) on 10/08/2021 1:08:25 PM Referred By: REFERRED SELF Confirmed By:David Dee
[2021-10-08] MEDS ORDERED: HYDROmorphone INJ 0.5 MG/0.5 ML SYR IV PRN ×2 (13:32→18:26)
--- NOTE | 2021-10-08 14:45 | Surgery Progress Note ---
Date of Service October 08, 2021 Assessment & Plan (1) Perforated viscus: Plan: Patient is having significant pain and requiring more IV pain medication She did have a slight decrease in her blood pressure We have attempted to contact her surgeon in [place] over the last 3 to 4 hours with no success I do not feel we should wait or try to treat her medically any longer We will proceed with exploratory laparotomy for perforated viscus Patient will be admitted to the intensive care unit postoperatively Results & Data ([facility]) Vital Signs (Past 12 Hours) Vital Signs Temp Pulse Pulse Resp BP BP Pulse Ox 10/08/21 12:09 88 16 96/67 L 97 10/08/21 11:00 82 19 118/79 96 10/08/21 10:50 74 22 101/66 98 10/08/21 10:30 72 91 H 17 106/76 101/66 97 10/08/21 10:00 70 20 114/75 95 10/08/21 09:30 56 L 24 112/69 94 10/08/21 09:00 65 22 134/91 97 10/08/21 08:47 68 11 L 98 10/08/21 08:34 36.6 C 64 68 14 114/73 114/73 98 PG Care Time/CCT Total # of Minutes Spent Total Time Spent with Patient: Total time spent is greater than 50% in coordination of care (as documented) at patient's floor/unit and/or counseling patient: Coding Level of Care Code None Diagnoses Perforated viscus R19.8
[2021-10-08] MEDS ORDERED: fentaNYL citrate 100 MCG/2 ML VIAL ONE (14:48)
[2021-10-08] MEDS ORDERED: MIDAZOLAM HCL 1 MG/ML 2ML VIAL ONE (14:48)
[2021-10-08] MEDS ORDERED: LIDOCAINE HCL/D5W 2000 MG/500 ML BAG IV ONE (14:50)
[2021-10-08] MEDS ORDERED: ALBUMIN HUMAN 5% 12.5 GM/250 ML VIAL IV ONE (14:50)
[2021-10-08] MEDS ORDERED: SUGAMMADEX SODIUM 200 MG/2 ML VIAL IV ONE (14:51)
--- NOTE | 2021-10-08 15:24 | Anesthesiology Consultation ---
Date of Service October 08, 2021 Assessment & Plan (1) Encounter for pre-operative examination: Chart Review Chart Review: Acceptable Risk for Surgery (necessary) and Patient NOT seen in Pre Admission Testing Consults Requested none History Surgery Operation Date: 10/08/21 10:25 Proposed Procedures p Exploratory Laparotomy - Kishan Bowie MD, FACS Height/Weight Height: 5 ft 6 in Weight: 81.3 kg Allergies Allergy/AdvReac Type Severity Reaction Status Date / Time Iodinated Contrast Media Allergy Intermediate THROAT Verified 07/29/20 21:28 TIGHTENS, SHAKINESS venlafaxine Allergy Intermediate DIZZINESS, Verified 07/29/20 21:28 VOMITING acetaminophen Allergy Mild HIVES Verified 07/29/20 21:28 sumatriptan Allergy Mild HIVES Verified 07/29/20 21:28 valproic acid Allergy Mild Dizziness Verified 07/29/20 21:28 erythromycin base Allergy Unknown CAN'T Verified 07/29/20 21:28 REMEMBER ketorolac Allergy Unknown CAN'T Verified 07/29/20 21:28 REMEMBER prednisone Allergy Verified 07/29/20 21:28 oxycodone AdvReac Intermediate nausea Verified 07/29/20 21:28 mupirocin AdvReac Mild itching,cl Verified 07/29/20 21:28 h propoxyphene AdvReac Mild UPSET Verified 07/29/20 21:28 STOMACH Tea Allergy Mild HIVES, Uncoded 07/29/20 21:28 dizziness,sweating Medications Home Medications Medication Instructions Recorded Confirmed Last Taken bupropion HCl 150 mg tablet,12 hr 150 mg PO DAILY 11/27/18 10/08/21 12/14/19 sustained-release levothyroxine 50 mcg tablet 50 mcg PO QAM 11/27/18 10/08/21 12/14/19 pantoprazole 40 mg tablet,delayed 40 mg PO BID 30 Days #60 tab 07/30/20 10/08/21 12/14/19 release Active Medications Generic Name Dose Route Start Last Admin Trade Name Freq PRN Reason Stop Dose Admin Hydromorphone HCl 0.5 mg 10/08/21 13:32 10/08/21 13:38 Hydromorphone Inj 0.5 Mg/0.5 Ml Syr IV 10/22/21 13:31 0.5 mg Q15M PRN Administration Pain Pantoprazole Sodium 40 mg/ 100 mls @ 20 mls/hr 10/08/21 11:30 10/08/21 12:10 Dextrose IV 11/07/21 11:29 8 mg/hr Q5H TEDDY 20 mls/hr Administration 8 MG/HR NPO Date Last Intake of Fluids: 10/07/21 Time Last Intake of Fluids: 21:00 Date Last Intake of Solids: 10/07/21 Time Last Intake of Solids: 21:00 Past Medical History Medical History (Updated 10/08/21 @ 15:23 by Lonnie Turcios MD) BPV (benign positional vertigo) Bronchitis Dental infection External hemorrhoid Low blood pressure Traumatic subdural hematoma (12/02/11) Upper respiratory infection Urinary tract infection Urinary tract infection Past Family History Family History Mother Asthma Aunt Bleeding disorder Family/Other Bleeding disorder Hypertension mother's side of the family Grandmother (Maternal) Lung cancer Past Surgical History Surgical History H/O bariatric surgery History of strabismus surgery S/P appendectomy S/P cardiac cath S/P cholecystectomy S/P ear surgery S/P knee surgery S/P tonsillectomy S/P tubal ligation S/P wrist surgery Social History Smoking Status: Never smoker Hx Alcohol Use: No Hx Substance Use: No Physical Exam Vital Signs Last Vital Signs Temp 36.6 C 10/08/21 08:34 Pulse 95 H 10/08/21 15:00 Resp 17 10/08/21 15:00 BP 111/77 10/08/21 15:00 Pulse Ox 94 10/08/21 15:00 Testing Laboratory Results 10/08/21 08:52 10/08/21 10:04 PT 10.3 Seconds (9.0-12.0) 10/08/21 08:52 INR 1.0 (0.9-1.1) 10/08/21 08:52 APTT 23.9 Seconds (21.0-31.0) 10/08/21 08:52 10/08/21 09:46 POC Ur Test NEG Electrocardiogram Date: 10/08/21 DICTATED BY:David Dee MD Test Reason : Blood Pressure : / mmHG Vent. Rate : 070 BPM Atrial Rate : 070 BPM P-R Int : 144 ms QRS Dur : 090 ms QT Int : 424 ms P-R-T Axes : 038 -40 002 degrees QTc Int : 457 ms Normal sinus rhythm Left axis deviation Low voltage QRS Nonspecific T wave abnormality Abnormal ECG When compared with ECG of 08-OCT-2021 08:28, (unconfirmed) Nonspecific T wave abnormality now evident in Anterolateral leads Confirmed by David Dee ([id number]) on 10/08/2021 1:08:25 PM Referred By: REFERRED SELF Confirmed By:David Dee Signed By: 10/08/21 1308 Chest X-Ray Date: 10/08/21 XR chest 1V portable CLINICAL HISTORY: left chest pain TECHNIQUE: Single frontal radiograph of the chest was obtained. Comparison: Comparison is made to chest one view 07/30/2020 FINDINGS: No lines and tubes are seen. The cardiomediastinal silhouette is normal. The lungs are clear. No evidence of pleural effusion or pneumothorax. There is seen under the left hemidiaphragm. IMPRESSION: Air is noted under the left hemidiaphragm. There may also be a trace of air under the right hemidiaphragm as well. Although these findings may represent gastric/intestinal air, dedicated upright abdominal radiograph is recommended to exclude pneumoperitoneum. ACT 112: Negative or not required by law. Electronically signed by: Juan Long M.D. 10/08/2021 9:13 AM Echocardiogram Date: 07/30/20 EF: 60-65 LV Function: normal Valvular Disease: + no significant valvular disease Other Testing ABDOMEN AND PELVIS CT WITHOUT CONTRAST CT DOSE: 1000.75 mGycm HISTORY: Left-sided abdominal pain. ?free air in the abdomen on CXR TECHNIQUE: Multiaxial CT images of the abdomen and pelvis were performed without contrast. A dose lowering technique was utilized adhering to the principles of ALARA. COMPARISON STUDY: Abdomen and pelvis CT 07/29/2020. FINDINGS: Trace left pleural effusion with mild elevation of the left hemidiaphragm. Small amount of pneumoperitoneum within the upper abdomen. No fractures within the visualized osseous structures. Postoperative changes consistent with prior Colt-en-Y gastric bypass. Exact location of the bowel perforation is not clearly identified on this study but could be from the gastric pouch best seen on image 60. Trace pelvic free fluid. The uterus, bladder, and bilateral adnexa are unremarkable. A few colonic diverticula. No evidence for acute diverticulitis. No dilated loops of bowel to suggest an obstruction. Cholecystectomy. The unenhanced liver, spleen, adrenal glands, pancreas, and kidneys are unremarkable. No retroperitoneal lymphadenopathy. Normal caliber abdominal aorta. Prior appendectomy. IMPRESSION: 1. Small amount of pneumoperitoneum. This likely represents bowel perforation. The exact location is not clearly identified on this study but may be located at the gastric pouch as described above. 2. Status post Colt-en-Y gastric bypass. 3. No evidence for bowel obstruction. 4. Trace pelvic fluid. 5. Trace left pleural effusion. ACT 112: Negative or not required by law. Electronically signed by: Lonnie Abernathy M.D. 10/08/2021 11:11 AM Dictated:10/08/21 1057
[2021-10-08] MEDS ORDERED: ONDANSETRON INJ 2 MG/ML 2 ML VIAL IV PRN (15:26)
[2021-10-08] MEDS ORDERED: ePHEDrine sulfate 50 MG/ML AMP IV PRN (15:26)
[2021-10-08] MEDS ORDERED: LABETALOL HCL IV 5 MG/ML 20ML IV PRN (15:26)
[2021-10-08] MEDS ORDERED: HYDROmorphone INJ 1 MG/ML SYRINGE IV PRN (15:26)
[2021-10-08] MEDS ORDERED: ATROPINE SULFATE 0.1 MG/ML 10ML SYR IV PRN (15:26)
[2021-10-08] MEDS ORDERED: MEPERIDINE HCL 25 MG/ML CARP/VIAL IV PRN (15:26)
[2021-10-08] MEDS ORDERED: PHENYLEPHRINE 100MCG/ML 5ML SYR IV PRN (15:26)
[2021-10-08] MEDS ORDERED: KETAMINE 50 MG/5 ML SYRINGE ONE (15:43)
[2021-10-08] MEDS ORDERED: DEXAMETHASONE SOD INJ 4 MG/ML VIAL ONE (16:22)
[2021-10-08] MEDS ORDERED: LIDOCAINE 2% 2 ML VIAL/AMP(20MG/ML) INFIL ONE (16:22)
[2021-10-08] MEDS ORDERED: ONDANSETRON INJ 2 MG/ML 2 ML VIAL ONE (16:22)
[2021-10-08] MEDS ORDERED: PROPOFOL IV EMULSION 10 MG/ML 20 ML VIAL IV ONE (16:22)
[2021-10-08] MEDS ORDERED: ROCURONIUM BROMIDE 10 MG/ML 5 ML VIAL IV ONE (16:22)
--- NOTE | 2021-10-08 16:41 | Post Operative Brief Note ---
PG Immediate Post Op with CF Date of Surgery October 08, 2021 Pre & Post Diagnosis Operation Date: 10/08/21 10:25 Pre-Op Diagnosis: Exploratory Laparotomy Post-Op Diagnosis: Anastomotic Perforation, peritonitis I identified the patient and participated in the time-out.: Yes Procedure Operation Date: 10/08/21 10:25 Actual Procedures p Exploratory Laparotomy, Irrigation of Abdomen, Closure of Anastomotic Perforation(Not Applicable) - Kishan Bowie MD, FACS Abdominal washout Surgeon Kishan Bowie MD, FACS Therapy Tech Luh Cain Estimated Blood Loss 10 Findings Consistent with Post-Op Diagnosis Patient with perforation at the gastrojejunostomy anastomosis with leakage of contents and purulent fluid causing peritonitis Specimens Specimen Description: Culture #1: Peritoneal fluid Drains Christopher Catheter (Urine output measured by anesthesia) and Rojelio-Viveros Drain (19fr round drain)
[2021-10-08] MEDS: fentaNYL citrate 100 MCG/2 ML VIAL IV PRN ×3 (17:09→17:49)
--- NOTE | 2021-10-08 17:42 | Operative Report (OR) ---
DATE OF OPERATION: 10/08/2021. NAME OF OPERATION: Exploratory laparotomy with closure of gastrojejunal anastomotic perforation with omental patch and abdominal washout. PREOPERATIVE DIAGNOSIS: Perforated viscus. POSTOPERATIVE DIAGNOSES: Perforated viscus with perforation of the gastrojejunostomy anastomosis and peritonitis. STAFF SURGEON: Kishan oBwie MD. RAIL FLAW DETECTOR OPERATOR: Leighton Cain PA-C. ANESTHESIA: General. DESCRIPTION OF PROCEDURE: The patient was brought in the operating room and placed on the operating table in supine position. Her abdomen was prepped and draped in the usual fashion. After appropriat e Christopher catheter placement; my carpenter assistant helped with prepping, draping, repair of the perforation and closure of the wound. Upper midline incision was made from the xiphoid down toward the umbilicus, c arrying dissection down into the abdomen. On inspection and dissection up under the liver near the le sser curve of the stomach, we did find purulent fluid, which was cultured. This was aspirated and th en on inspection, the patient did have a 5 mm perforation of her gastrojejunostomy, which was leaking . At this point, it was closed using interrupted 0 chromic suture. It was then reinforced with an omen elaine patch sewn over the area using 0 chromic suture. The abdomen was irrigated with antibiotic solut ion. A #19 round Rojelio-Viveros drain placed into the subhepatic space near the area of the perforati on up into the left upper quadrant and secured using 3-0 nylon suture. At this point, the peritoneum was reapproximated using #1 chromic suture. The fascia reapproximated using both running and interr upted #1 PDS suture. A Deanna drain placed in the subcutaneous space, secured to the skin using 4-0 nylon suture. Skin reapproximated with jennifer. Dressing applied. The patient was transferred to recovery room in stable condition to be admitted to the intensive care unit. Job ID: [id number]
--- NOTE | 2021-10-08 17:47 | Anesthesiology Progress Note ---
Date of Service October 08, 2021 Anesthesia Post Procedure Vital Signs Vital Signs: Temp Pulse Pulse Pulse Resp BP BP 10/08/21 17:35 81 18 134/91 10/08/21 17:25 36.5 C 82 20 124/91 10/08/21 17:15 82 18 129/91 10/08/21 17:05 84 24 130/95 10/08/21 16:55 92 H 24 132/90 10/08/21 16:48 36.5 C 89 16 130/85 10/08/21 15:28 37.0 C 93 H 18 121/81 10/08/21 15:00 95 H 17 111/77 10/08/21 14:35 115 H 10/08/21 14:00 94 H 18 129/82 10/08/21 13:31 88 14 119/71 10/08/21 13:30 86 16 113/85 10/08/21 13:00 78 18 81/58 L 10/08/21 12:30 78 15 119/78 10/08/21 12:09 88 16 96/67 L 10/08/21 12:00 87 20 96/67 L 10/08/21 11:30 94 H 18 92/61 L 10/08/21 11:00 82 19 118/79 10/08/21 10:50 74 22 101/66 10/08/21 10:30 72 91 H 17 106/76 101/66 10/08/21 10:00 70 20 114/75 10/08/21 09:30 56 L 24 112/69 10/08/21 09:00 65 22 134/91 10/08/21 08:47 68 11 L 10/08/21 08:34 36.6 C 64 68 14 114/73 114/73 Pulse Ox 10/08/21 17:35 95 10/08/21 17:25 95 10/08/21 17:15 94 10/08/21 17:05 97 10/08/21 16:55 96 10/08/21 16:48 95 10/08/21 15:28 95 10/08/21 15:00 94 10/08/21 14:35 10/08/21 14:00 96 10/08/21 13:31 97 10/08/21 13:30 97 10/08/21 13:00 97 10/08/21 12:30 96 10/08/21 12:09 97 10/08/21 12:00 97 10/08/21 11:30 96 10/08/21 11:00 96 10/08/21 10:50 98 10/08/21 10:30 97 10/08/21 10:00 95 10/08/21 09:30 94 10/08/21 09:00 97 10/08/21 08:47 98 10/08/21 08:34 98 Pain Intensity Chest: Pain Intensity: 0 Upper Abdomen: Pain Intensity: 3 Transfer of Care Handoff Completed per policy Notes Mental Status: alert / awake / arousable Patient Amnestic to Procedure: Yes Nausea / Vomiting: adequately controlled Pain: adequately controlled Airway Patency, RR, SpO2: stable & adequate BP & HR: stable & adequate Hydration State: stable & adequate Anesthetic Complications: no major complications apparent and Pt Satisfied with anesthetic care
[2021-10-08] MEDS ORDERED: PROMETHAZINE HCL 25 MG in SODIUM CHLORIDE 0.9% 50 ML IV PRN (18:26)
[2021-10-08] MEDS ORDERED: PROMETHAZINE HCL 12.5 MG in SODIUM CHLORIDE 0.9% 50 ML IV PRN (18:26)
[2021-10-08] MEDS ORDERED: ICU PROTOCOL FOR HYPERGLYCEMIA PRN (18:26)
[2021-10-08] MEDS ORDERED: HYDROmorphone INJ 0.5 MG/0.5 ML SYR ONE (19:12)
[2021-10-08] MEDS: SODIUM CHLORIDE 0.9% 1000ML 1,000 ML IV SCH (19:41)
[2021-10-08] MEDS: PIPERACILLIN/TAZOBACTAM 3.375 GM in DEXTROSE 5% 100 ML IV SCH (19:58)
--- NOTE | 2021-10-08 20:24 | Critical Care Consultation ---
Date of Consultation October 08, 2021 Assessment & Plan (1) Perforated abdominal viscus: Impression: 51-year-old female presents to the ICU postop for perforated abdominal viscus with peritonitis, status post abdominal washout with repair of anastomotic gastrojejunostomy Neuro - Pain control: Hydromorphone as needed Nausea: Phenergan as needed Cardiac - Currently hemodynamically stable and normal sinus rhythm on telemetry. Continuous monitoring on telemetry and monitor in ICU overnight. Patient can likely downgrade in a.m. if remains hemodynamically stable. She was noted to have some hypotension in the ED preop, but no current issues. Respiratory - Currently maintaining oxygen saturation on 2 L nasal cannula, wean as tolerated. No prior history of pulmonary disease. Continuous monitoring pulse ox GI - Perforated viscus with peritonitisstatus post exploratory laparotomy with abdominal washout and revision of anastomotic gastrojejunostomy -General surgery following and managing drains appreciate recommendations -N.p.o. for now, converted home meds to IV -IV PPI twice daily RENAL/LYTES - Creatinine stable, monitor routine BMPs replete electrolytes as indicated - Foleystrict I's and O's ENDO - ICU hyperglycemic protocol Synthroid converted to IV as patient is n.p.o. HEME - H&H stable, monitor routine CBCs ID - Continue empiric Zosyn Peritoneal fluid culture pending LINES/IV ACCESS - Peripheral IVs DVT PROPHYLAXIS - SCDs, hold anticoagulation following surgery for now Thank you for allowing us to participate in the care of this patient. Please refer to my attending physician's documentation for any further recommendations. (2) Hypothyroid: Converted p.o. Synthroid IV as patient is currently n.p.o. (3) Anxiety: Hold bupropion for now as patient is n.p.o. (4) Pneumoperitoneum: (5) Peritonitis: History of Present Illness Reason for Consultation: Patient is a 51-year-old female with history of gastric bypass surgery 2 years ago and revision 1 year ago. She presented to the emergency department earlier today with complaints of left-sided chest pain 10/10 which were worsened with breathing and moving. She underwent CT abdomen and pelvis which was concerning for bowel perforation around the location of the gastric pouch. Patient was evaluated by general surgery who initially recommended transfer to the patient's original surgeon at [place]. However, he was unable to be reached and decision was made to take the patient to the OR. She underwent exploratory laparotomy where she was found to have anastomotic perforation and peritonitis, and underwent irrigation of the abdomen and closure of the anastomotic perforation. Post procedure, patient was extubated and is currently hemodynamically stable but was admitted to ICU for further monitoring given severity of surgery and risk of decompensation. On examination in the ICU the patient is alert and oriented and hemodynamically stable and normal sinus rhythm on monitor, 2 L nasal cannula and without acute distress. She does complain of abdominal pain and a slight headache, which was somewhat improved with pain meds. She currently denies dizziness, syncope, changes in vision, sore throat, cough, shortness of breath, chest pain or palpitations, nausea or vomiting. Will monitor in ICU overnight if patient remains stable she can likely downgrade/transfer from ICU in the morning. Attending Physician: Kishan Bowie MD, FACS Allergies Allergy/AdvReac Type Severity Reaction Status Date / Time Iodinated Contrast Media Allergy Intermediate THROAT Verified 07/29/20 21:28 TIGHTENS, SHAKINESS venlafaxine Allergy Intermediate DIZZINESS, Verified 07/29/20 21:28 VOMITING acetaminophen Allergy Mild HIVES Verified 07/29/20 21:28 sumatriptan Allergy Mild HIVES Verified 07/29/20 21:28 valproic acid Allergy Mild Dizziness Verified 07/29/20 21:28 erythromycin base Allergy Unknown CAN'T Verified 07/29/20 21:28 REMEMBER ketorolac Allergy Unknown CAN'T Verified 07/29/20 21:28 REMEMBER prednisone Allergy Verified 07/29/20 21:28 oxycodone AdvReac Intermediate nausea Verified 07/29/20 21:28 mupirocin AdvReac Mild itching,cl Verified 07/29/20 21:28 h propoxyphene AdvReac Mild UPSET Verified 07/29/20 21:28 STOMACH Tea Allergy Mild HIVES, Uncoded 07/29/20 21:28 dizziness,sweating Home Medications Medication Instructions Recorded Confirmed Type bupropion HCl 150 mg tablet,12 hr 150 mg PO DAILY 11/27/18 10/08/21 History sustained-release levothyroxine 50 mcg tablet 50 mcg PO QAM 11/27/18 10/08/21 History pantoprazole 40 mg tablet,delayed 40 mg PO BID 30 Days #60 tab 07/30/20 10/08/21 Rx release Patient History Medical History (Updated 10/08/21 @ 20:22 by SHIV Shell) Anxiety BPV (benign positional vertigo) Bronchitis Dental infection External hemorrhoid Hypothyroid Low blood pressure Traumatic subdural hematoma (12/02/11) Upper respiratory infection Urinary tract infection Urinary tract infection Surgical History H/O bariatric surgery History of strabismus surgery S/P appendectomy S/P cardiac cath S/P cholecystectomy S/P ear surgery S/P knee surgery S/P tonsillectomy S/P tubal ligation S/P wrist surgery Family History Mother Asthma Aunt Bleeding disorder Family/Other Bleeding disorder Hypertension mother's side of the family Grandmother (Maternal) Lung cancer Social History Smoking Status: Never smoker Second Hand Exposure: No; Hx Alcohol Use: No Hx Substance Use: No Preferred Language: Salvadorean Communication Ability: Effective Risk Control Representative Required: No Beliefs That Will Affect Care: None Current Living Situation: Significant Other current occupational status: unemployed and disabled Feels Safe at Home: Yes Assistive Devices: Glasses Assistive Devices Comment: partials Review of Systems Review of Systems: All systems reviewed & are unremarkable except as noted in HPI & below Physical Exam Constitutional: cooperative and comfortable; no acute distress Eyes: PERRL, conjunctivae normal, anicteric sclerae ENMT: external ear and nose normal, oropharynx normal Neck: trachea midline, no thyromegaly Respiratory: normal respiratory effort, lungs clear to auscultation Cardiovascular: RRR, no murmur, no edema Heart Sounds: normal S1 and normal S2 Extremities: no edema Gastrointestinal (Abdomen): Midline incision appears approximated without spotting on dressing, JOSÉ drain with serosanguineous drainage. Abdomen is soft, generalized tenderness with palpation. Hypoactive bowel sounds in all 4 quadrants. Skin: no rashes, warm and dry Neurologic: PERRL, EOMI, accommodation nl, no face palsy, no dysarthria Psychiatric: A+Ox3, euthymic affect Results & Data Results & Data ([facility]) Vital Signs (Past 12 Hours) Vital Signs Temp Pulse Pulse Pulse Resp BP BP 10/08/21 19:26 81 21 10/08/21 18:34 36.7 C 84 18 135/88 10/08/21 18:26 37.4 C 80 18 130/92 10/08/21 18:05 80 18 133/89 10/08/21 17:50 88 18 129/83 10/08/21 17:35 81 18 134/91 10/08/21 17:25 36.5 C 82 20 124/91 10/08/21 17:15 82 18 129/91 10/08/21 17:05 84 24 130/95 10/08/21 16:55 92 H 24 132/90 10/08/21 16:48 36.5 C 89 16 130/85 10/08/21 15:28 37.0 C 93 H 18 121/81 10/08/21 15:05 100 H 26 H 10/08/21 15:00 95 H 17 111/77 10/08/21 14:35 115 H 10/08/21 14:00 94 H 18 129/82 10/08/21 13:31 88 14 119/71 10/08/21 13:30 86 16 113/85 10/08/21 13:00 78 18 81/58 L 10/08/21 12:30 78 15 119/78 10/08/21 12:09 88 16 96/67 L 10/08/21 12:00 87 20 96/67 L 10/08/21 11:30 94 H 18 92/61 L 10/08/21 11:00 82 19 118/79 10/08/21 10:50 74 22 101/66 10/08/21 10:30 72 91 H 17 106/76 101/66 10/08/21 10:00 70 20 114/75 10/08/21 09:30 56 L 24 112/69 10/08/21 09:00 65 22 134/91 10/08/21 08:47 68 11 L 10/08/21 08:34 36.6 C 64 68 14 114/73 114/73 Pulse Ox 10/08/21 19:26 97 10/08/21 18:34 97 10/08/21 18:26 97 10/08/21 18:05 96 10/08/21 17:50 97 10/08/21 17:35 95 10/08/21 17:25 95 10/08/21 17:15 94 10/08/21 17:05 97 10/08/21 16:55 96 10/08/21 16:48 95 10/08/21 15:28 95 10/08/21 15:05 94 10/08/21 15:00 94 10/08/21 14:35 10/08/21 14:00 96 10/08/21 13:31 97 10/08/21 13:30 97 10/08/21 13:00 97 10/08/21 12:30 96 10/08/21 12:09 97 10/08/21 12:00 97 10/08/21 11:30 96 10/08/21 11:00 96 10/08/21 10:50 98 10/08/21 10:30 97 10/08/21 10:00 95 10/08/21 09:30 94 10/08/21 09:00 97 10/08/21 08:47 98 10/08/21 08:34 98 Coding Level of Care Code 53527 Inpt Consult Level 3 Diagnoses Perforated abdominal viscus R19.8 Hypothyroid E03.9 Anxiety F41.9 Pneumoperitoneum K66.8 Peritonitis K65.9
[2021-10-08] MEDS: PANTOprazole 40 MG in SYRINGE 0 ML IV SCH (20:39)
[2021-10-08 20:48] LABS: Hematocrit (blood only) 43.1 % (37-47); Hemoglobin 13.6 g/dL (12.0-16.0); Mean Corpuscular Hemoglobin 27.6 pg (25-34); Mean Corpuscular Hgb Conc 31.6 g/dL (32-36); Mean Corpuscular Volume 87.4 fL (80-100); Mean Platelet Volume 10.6 fL (7.4-10.4); Platelet Count 212 K/uL (130-400); RDW Coefficient of Variation 19.2 % (11.5-14.5); RDW Standard Deviation 62.4 fL (36.4-46.3); Red Blood Count 4.93 M/uL (4.2-5.4); White Blood Count 10.77 K/uL (4.8-10.8)
[2021-10-08 21:12] LABS: BUN Creatinine Ratio 10.9 (10-20); Creatinine Clr Calc Pharmacy 76.7 ml/min; Est GFR (African American) 81.3 ml/min; Est GFR (Non-African American) 70.2 ml/min; Potassium 4.5 mmol/L (3.5-5.1)
[2021-10-08] MEDS: HYDROmorphone INJ 0.5 MG/0.5 ML SYR IV PRN (21:58)
[2021-10-09] MEDS: HYDROmorphone INJ 0.5 MG/0.5 ML SYR IV PRN ×6 (01:19→21:24)
[2021-10-09] MEDS: ONDANSETRON INJ 2 MG/ML 2 ML VIAL IV PRN ×5 (01:28→21:24)
[2021-10-09] MEDS: PIPERACILLIN/TAZOBACTAM 3.375 GM in DEXTROSE 5% 100 ML IV SCH ×3 (03:28→20:19)
[2021-10-09] MEDS: SODIUM CHLORIDE 0.9% 1000ML 1,000 ML IV SCH (04:27)
[2021-10-09 05:25] LABS: Basophils # (auto) 0.01 K/uL (0-0.2); Basophils % (auto) 0.1 %; Hematocrit (blood only) 40.8 % (37-47); Hemoglobin 12.7 g/dL (12.0-16.0); Immature Granulocytes # (auto) 0.02 K/uL (0.00-0.02); Immature Granulocytes % (auto) 0.2 %; Lymphocytes # (auto) 0.85 K/uL (1.2-3.4); Lymphocytes % (auto) 7.4 %; Mean Corpuscular Hemoglobin 27.3 pg (25-34); Mean Corpuscular Hgb Conc 31.1 g/dL (32-36); Mean Corpuscular Volume 87.7 fL (80-100); Mean Platelet Volume 10.7 fL (7.4-10.4); Monocytes % (auto) 4.4 %; Neutrophils # (auto) 10.06 K/uL (1.4-6.5); Neutrophils % (auto) 87.9 %; Platelet Count 237 K/uL (130-400); RDW Coefficient of Variation 19.1 % (11.5-14.5); RDW Standard Deviation 62.3 fL (36.4-46.3); Red Blood Count 4.65 M/uL (4.2-5.4); White Blood Count 11.44 K/uL (4.8-10.8)
[2021-10-09 05:47] LABS: BUN Creatinine Ratio 11.5 (10-20); Calcium 8.6 mg/dl (8.5-10.1); Creatinine Clr Calc Pharmacy 75.9 ml/min; Est GFR (African American) 80.3 ml/min; Est GFR (Non-African American) 69.3 ml/min; Magnesium 1.9 mg/dl (1.8-2.4); Potassium 4.4 mmol/L (3.5-5.1)
[2021-10-09 05:49] LABS: Albumin Globulin Ratio 0.8 (0.9-2); Bilirubin,Total 0.6 mg/dl (0.2-1); Globulin 3.9 gm/dl (2.5-4.0); Phosphorus 3.3 mg/dl (2.5-4.9); Total Protein 6.9 gm/dl (6.4-8.2)
--- NOTE | 2021-10-09 06:41 | Surgery Progress Note ---
Date of Service October 09, 2021 Assessment & Plan (1) S/P exploratory laparotomy: Plan: Patient had a perforation at her gastrojejunostomy anastomosis She has a history of gastric bypass She appears to be relatively stable requiring some pain medication Continue n.p.o. with IV meds including antibiotics No p.o. meds She probably can go to the regular nursing floor later today We will have the medical team see the patient and follow with us Admission and Anticipated Discharge Date Admission Date: October 08, 2021 Results & Data ([facility]) Vital Signs (Past 12 Hours) Vital Signs Temp Pulse Resp BP Pulse Ox 10/09/21 06:00 73 17 114/77 92 10/09/21 05:00 75 20 112/80 94 10/09/21 04:00 36.8 C 74 20 119/80 93 10/09/21 03:00 72 21 113/75 95 10/09/21 02:00 77 19 124/85 97 10/09/21 01:00 72 16 134/84 97 10/09/21 00:00 65 17 123/87 98 10/08/21 23:30 77 15 98 10/08/21 23:00 77 18 116/83 97 10/08/21 22:30 70 15 98 10/08/21 22:00 73 24 132/90 97 10/08/21 21:30 73 20 123/86 97 10/08/21 21:00 75 18 133/92 97 10/08/21 20:30 70 18 98 10/08/21 20:00 36.7 C 75 18 133/93 98 10/08/21 19:45 75 16 121/87 98 10/08/21 19:30 89 21 130/92 97 10/08/21 19:26 81 21 97 PG Care Time/CCT Total # of Minutes Spent Total Time Spent with Patient: Total time spent is greater than 50% in coordination of care (as documented) at patient's floor/unit and/or counseling patient: Coding Level of Care Code None Diagnoses S/P exploratory laparotomy Z98.890
[2021-10-09] MEDS: PANTOprazole 40 MG in SYRINGE 0 ML IV SCH ×2 (07:35→20:13)
[2021-10-09] MEDS: HEPARIN SOD 5,000 UNIT/0.5 ML VIAL SQ SCH ×2 (07:35→20:27)
[2021-10-09] MEDS ORDERED: PROMETHAZINE HCL 12.5 MG in SODIUM CHLORIDE 0.9% 50 ML IV PRN (08:54)
[2021-10-09] MEDS ORDERED: HYDROmorphone INJ 0.5 MG/0.5 ML SYR IV PRN (08:54)
[2021-10-09] MEDS ORDERED: PIPERACILLIN/TAZOBACTAM 3.375 GM in DEXTROSE 5% 100 ML IV SCH (08:54)
[2021-10-09] MEDS ORDERED: PIPERACILL/TAZOBAC CONSULT ACTIVE PRN (08:54)
[2021-10-09] MEDS ORDERED: PROMETHAZINE HCL 25 MG in SODIUM CHLORIDE 0.9% 50 ML IV PRN (08:54)
--- NOTE | 2021-10-09 08:59 | Hospitalist Consultation ---
Date of Consultation October 09, 2021 Assessment & Plan (1) Peritonitis: due to perforation at the GJ anastomosis site - s/p exp lap, washout, repair - NPO status per primary service - Pain control per primary service - Continue IV Zosyn - Daily labs - Encourage incentive spirometry, OOB as tolerated - DVT prophylaxis - subQ heparin ordered already by primary team (2) S/P exploratory laparotomy: POD #1 - post-operative management per primary team (3) Hypothyroid: - Continue IV levothyroxine - transition to oral once okay with primary team (4) Anxiety: - IV lorazepam Q8 hrs PRN (5) Major depressive disorder: Resume oral outpatient meds once okay with primary team Pt seen and reviewed with collaborating physician, Dr. Marshall. Plan of care discussed and as outlined above. Thank you for this consultation. We will continue to follow the patient with you. A member of the [place] [facility] [place] [facility] Hospitalist Team is available 26/04 via [employer]. Please don't hesitate to reach out with questions. Frank Goss PA-C Supervising Physician Co-Signing Physician Notes Attending Addendum: care coordinated with JEWEL Goss please refer to her notes for full details, I agree with her notes patient seen and examined, records reviewed by myself as well on exam, patient seen resting in bed, comfortable states surgical site feels sore, analgesics helping no chest pain, dyspnea, palpitations, dizziness no other symptoms VS noted and reviewed oriented x 3, not in distress, speaks in sentences with no effort nor accessory muscle use normal rate, regular rhythm, no murmurs clear breath sounds bilaterally non distended, soft, nontender no bipedal edema, erythema, warmth no neuro deficits WBC 11 Hg 12 Crea 0.94 ASSESSMENT AND PLAN VISCUS PERFORATION S/P EXPLORATORY LAP WITH OMENTAL PATCH AND ABDOMINAL WASH OUT PERITONITIS continue IV Zosyn will monitor closely HISTORY OF MOOD DISORDER Amitriptyline, Bupropion, Gabapentin on hold as patient NPO PRN Ativan IV for now will monitor closely COVID 19 VIRUS EXPOSURE COVID PCR test today negative may need to be retested 5 days from exposure other diagnoses and plan of care as per JEWEL Goss notes Rene Marshall MD History of Present Illness Reason for Consultation: Post-operative Medical Management Requesting Physician: Dr. Kishan Bowie Attending Physician: Kishan Bowie MD, [facility] History of Present Illness This is a 51 y/o female with a PMH of hypothyroidism, GERD, anxiety, depression, polycystic ovaries, and prior gastric bypass who presented to the ED yesterday with epigastric abdominal pain that woke her from sleep yesterday. Imaging done in the ED showed free air in the abdomen with a potential perforation at the anastomosis site. Pt's surgeon is located at [place] so the initial plan was to transfer her there for additional care but her surgeon was unable to be reached. Pt's pain worsened last evening so she was taken to the OR for exploratory lap, which revealed perforation at the GJ anastomosis and associated peritonitis that was successfully closed. Pt was transferred to the ICU post-operatively and observed overnight. She has done well and was transferred to the medical floor this morning. We have been consulted to assist with post-operative medical management. Currently, her main complaint is pain, both in her abdomen and a headache. Some mild nausea but no vomiting. Denies chest pain, SOB, dizziness. Allergies Allergy/AdvReac Type Severity Reaction Status Date / Time Iodinated Contrast Media Allergy Intermediate THROAT Verified 07/29/20 21:28 TIGHTENS, SHAKINESS venlafaxine Allergy Intermediate DIZZINESS, Verified 07/29/20 21:28 VOMITING acetaminophen Allergy Mild HIVES Verified 07/29/20 21:28 sumatriptan Allergy Mild HIVES Verified 07/29/20 21:28 valproic acid Allergy Mild Dizziness Verified 07/29/20 21:28 erythromycin base Allergy Unknown CAN'T Verified 07/29/20 21:28 REMEMBER ketorolac Allergy Unknown CAN'T Verified 07/29/20 21:28 REMEMBER prednisone Allergy Verified 07/29/20 21:28 oxycodone AdvReac Intermediate nausea Verified 07/29/20 21:28 mupirocin AdvReac Mild itching,cl Verified 07/29/20 21:28 h propoxyphene AdvReac Mild UPSET Verified 07/29/20 21:28 STOMACH Tea Allergy Mild HIVES, Uncoded 07/29/20 21:28 dizziness,sweating Home Medications Medication Instructions Recorded Confirmed Type bupropion HCl 150 mg tablet,12 hr 150 mg PO DAILY 11/27/18 10/08/21 History sustained-release levothyroxine 50 mcg tablet 50 mcg PO QAM 11/27/18 10/08/21 History pantoprazole 40 mg tablet,delayed 40 mg PO BID 30 Days #60 tab 07/30/20 10/08/21 Rx release amitriptyline 25 mg tablet 25 mg PO HS 10/09/21 10/09/21 History ferrous sulfate 324 mg (65 mg 324 mg PO BID 10/09/21 10/09/21 History iron) tablet,delayed release gabapentin 300 mg capsule 300 mg PO TID 10/09/21 10/09/21 History lorazepam 0.5 mg tablet 0.5 mg PO TID PRN 10/09/21 10/09/21 History ondansetron HCl 4 mg tablet 4 mg PO Q8H PRN 10/09/21 10/09/21 History valacyclovir 500 mg tablet 500 mg PO DAILY 10/09/21 10/09/21 History Patient History Medical History (Updated 10/09/21 @ 10:24 by Jazmine Goss PA-C) Anxiety BPV (benign positional vertigo) CKD (chronic kidney disease) stage 3, GFR 30-59 ml/min (12/02/11) Dyslipidemia (12/02/11) Essential hypertension External hemorrhoid Hypothyroid Major depressive disorder (12/02/11) Migraine (12/02/11) Personality disorder (12/02/11) Polycystic ovaries (12/02/11) Post traumatic stress disorder (12/02/11) Traumatic subdural hematoma (12/02/11) Surgical History (Updated 10/09/21 @ 11:20 by Nano Love RN) H/O bariatric surgery H/O exploratory laparotomy (10/08/21) Exploratory laparotomy with closure of gastrojejunal anastomotic perforation with omental patch and abdominal washout. Dr. Bowie 10/08/21 History of strabismus surgery S/P appendectomy S/P cardiac cath S/P cholecystectomy S/P ear surgery S/P exploratory laparotomy S/P knee surgery S/P tonsillectomy S/P tubal ligation S/P wrist surgery Family History Mother Asthma Aunt Bleeding disorder Family/Other Bleeding disorder Hypertension mother's side of the family Grandmother (Maternal) Lung cancer Social History Smoking Status: Never smoker Second Hand Exposure: No; Hx Alcohol Use: No Hx Substance Use: No Preferred Language: [place] Communication Ability: Effective Shactor Required: No Beliefs That Will Affect Care: None Current Living Situation: Significant Other current occupational status: unemployed and disabled Feels Safe at Home: Yes Assistive Devices: None Assistive Devices Comment: partials Review of Systems Review of Systems: All systems reviewed & are unremarkable except as noted in HPI & below Constitutional: + fatigue; no fever and no chills Ear, Nose, Mouth, Throat: no nasal congestion, no nasal discharge and no sore throat Respiratory: no cough and no dyspnea Cardiovascular: no chest pain, no palpitations and no edema Gastrointestinal: as per Subjective / HPI Integumentary: no rash and no yellowing of the skin Neurologic: + headache(s); no dizziness and no syncope Psychiatric: + depression and + anxiety Physical Exam Constitutional: no acute distress Eyes: + anicteric sclerae ENMT: moist mucus membranes Neck: trachea midline Respiratory: no respiratory distress and no labored breathing Auscultation: + diminished lung sounds; no rales, no rhonchi and no wheezes Cardiovascular: Rate/Rhythm: regular rate and regular rhythm Heart Sounds: no gallop, no murmur and no cardiac rub Vessels: radial pulses present Extremities: no pedal edema Gastrointestinal (Abdomen): Inspection/Auscultation: + hypoactive bowel sounds Percussion/Palpation: + abdomen tender (diffusely) and abdomen soft Skin: + dry skin; no jaundice Neurologic: moves all extremities; no focal motor deficits Psychiatric: Mood: + anxious mood tearful during visit Results & Data Results & Data ([facility]) Vital Signs (Past 12 Hours) Vital Signs Temp Pulse Pulse Resp BP BP Pulse Ox 10/09/21 08:00 37.0 C 73 70 20 129/80 94 10/09/21 06:00 73 17 114/77 92 10/09/21 05:00 75 20 112/80 94 10/09/21 04:00 36.8 C 74 20 119/80 93 10/09/21 03:00 72 21 113/75 95 10/09/21 02:00 77 19 124/85 97 10/09/21 01:00 72 16 134/84 97 10/09/21 00:00 65 17 123/87 98 10/08/21 23:30 77 15 98 10/08/21 23:00 77 18 116/83 97 10/08/21 22:30 70 15 98 10/08/21 22:00 73 24 132/90 97 10/08/21 21:30 73 20 123/86 97 10/08/21 21:00 75 18 133/92 97 Pulse Ox 10/09/21 08:00 94 10/09/21 06:00 10/09/21 05:00 10/09/21 04:00 10/09/21 03:00 10/09/21 02:00 10/09/21 01:00 10/09/21 00:00 10/08/21 23:30 10/08/21 23:00 10/08/21 22:30 10/08/21 22:00 10/08/21 21:30 10/08/21 21:00 Laboratory Results Laboratory Results - last 24 hr 10/08/21 10/08/21 10/08/21 08:52 08:52 09:46 WBC RBC Hgb Hct MCV MCH MCHC RDW Std Deviation RDW Coeff of [place] Plt Count MPV Immature Gran % (Auto) Neut % (Auto) Lymph % (Auto) [place] % (Auto) Eos % (Auto) Baso % (Auto) Neut # (Auto) Lymph # (Auto) [place] # (Auto) Eos # (Auto) Baso # (Auto) Immature Gran # (Auto) PT 10.3 INR 1.0 APTT 23.9 PTT Ratio 0.9 D-Dimer 1090 H* Sodium 141 Potassium Chloride 111 H Carbon Dioxide 27 Anion Gap 3.0 BUN 8 Creatinine 0.97 Est Cr Clr Drug Dosing 72.1 Est GFR ( Amer) 77.3 Est GFR (Non-Af Amer) 66.7 BUN/Creatinine Ratio 8.0 L Glucose 103 H Lactate Calcium 8.7 Phosphorus Magnesium Total Bilirubin 0.3 AST ALT 27 Alkaline Phosphatase 92 Troponin I < 0.015 Total Protein 7.8 Albumin 3.6 Globulin 4.2 H Albumin/Globulin Ratio 0.9 HCG, Qual POC Ur Test NEG Nasal Screen MRSA (PCR) SARS-CoV-2, RNA, NAAT 10/08/21 10/08/21 10/08/21 10:04 10:04 20:32 WBC 10.77 RBC 4.93 Hgb 13.6 Hct 43.1 MCV 87.4 MCH 27.6 MCHC 31.6 L RDW Std Deviation 62.4 H RDW Coeff of [place] 19.2 H Plt Count 212 MPV 10.6 H Immature Gran % (Auto) Neut % (Auto) Lymph % (Auto) [place] % (Auto) Eos % (Auto) Baso % (Auto) Neut # (Auto) Lymph # (Auto) [place] # (Auto) Eos # (Auto) Baso # (Auto) Immature Gran # (Auto) PT INR APTT PTT Ratio D-Dimer Sodium Potassium 4.3 Chloride Carbon Dioxide Anion Gap BUN Creatinine Est Cr Clr Drug Dosing Est GFR ( Amer) Est GFR (Non-Af Amer) BUN/Creatinine Ratio Glucose Lactate Calcium Phosphorus Magnesium Total Bilirubin AST 25 ALT Alkaline Phosphatase Troponin I Total Protein Albumin Globulin Albumin/Globulin Ratio HCG, Qual Negative POC Ur Test Nasal Screen MRSA (PCR) SARS-CoV-2, RNA, NAAT 10/08/21 10/08/21 10/08/21 20:32 20:32 23:00 WBC RBC Hgb Hct MCV MCH MCHC RDW Std Deviation RDW Coeff of [place] Plt Count MPV Immature Gran % (Auto) Neut % (Auto) Lymph % (Auto) [place] % (Auto) Eos % (Auto) Baso % (Auto) Neut # (Auto) Lymph # (Auto) [place] # (Auto) Eos # (Auto) Baso # (Auto) Immature Gran # (Auto) PT INR APTT PTT Ratio D-Dimer Sodium 139 Potassium 4.5 Chloride 110 H Carbon Dioxide 25 Anion Gap 4.0 BUN 10 Creatinine 0.93 Est Cr Clr Drug Dosing 76.7 Est GFR ( Amer) 81.3 Est GFR (Non-Af Amer) 70.2 BUN/Creatinine Ratio 10.9 Glucose 148 H Lactate 0.7 Calcium 8.0 L Phosphorus Magnesium Total Bilirubin AST ALT Alkaline Phosphatase Troponin I Total Protein Albumin Globulin Albumin/Globulin Ratio HCG, Qual POC Ur Test Nasal Screen MRSA (PCR) Negative SARS-CoV-2, RNA, NAAT 10/08/21 10/09/21 10/09/21 Unknown 04:52 04:52 WBC 11.44 H RBC 4.65 Hgb 12.7 Hct 40.8 MCV 87.7 MCH 27.3 MCHC 31.1 L RDW Std Deviation 62.3 H RDW Coeff of [place] 19.1 H Plt Count 237 MPV 10.7 H Immature Gran % (Auto) 0.2 Neut % (Auto) 87.9 Lymph % (Auto) 7.4 [place] % (Auto) 4.4 Eos % (Auto) 0.0 Baso % (Auto) 0.1 Neut # (Auto) 10.06 H Lymph # (Auto) 0.85 L [place] # (Auto) 0.50 Eos # (Auto) 0.00 Baso # (Auto) 0.01 Immature Gran # (Auto) 0.02 PT INR APTT PTT Ratio D-Dimer Sodium 138 Potassium 4.4 Chloride 108 H Carbon Dioxide 25 Anion Gap 5.0 BUN 11 Creatinine 0.94 Est Cr Clr Drug Dosing 75.9 Est GFR ( Amer) 80.3 Est GFR (Non-Af Amer) 69.3 BUN/Creatinine Ratio 11.5 Glucose 128 H Lactate Calcium 8.6 Phosphorus 3.3 Magnesium 1.9 Total Bilirubin 0.6 AST 356 H ALT 414 H Alkaline Phosphatase 125 H Troponin I Total Protein 6.9 Albumin 3.0 L Globulin 3.9 Albumin/Globulin Ratio 0.8 L HCG, Qual POC Ur Test Nasal Screen MRSA (PCR) SARS-CoV-2, RNA, NAAT NEGATIVE Diagnostic Findings Chest X-ray 10/08/21 - IMPRESSION: Air is noted under the left hemidiaphragm. T here may also be a trace of air under the right hemidiaphragm as well. Although these findings may represent gastric/intestinal air, dedicated upright abdominal radiograph is recommended to exclude pneumoperitoneum. CT Abd/Pel 10/08/21 - IMPRESSION: 1. Small amount of pneumoperitoneum. This likely represents bowel perforation. The exact location is not clearly identified on this study but may be located at the gastric pouch as described above. 2. Status post Colt-en-Y gastric bypass. 3. No evidence for bowel obstruction. 4. Trace pelvic fluid. 5. Trace left pleural effusion. Medications Administered Heparin Sodium (Porcine) (Heparin Sod 5,000 Unit/0.5 Ml Vial) 5,000 units SQ Q12 TEDDY Stop: 11/08/21 08:59 Last Admin: 10/09/21 07:35 Dose: 5,000 units Documented by: [id number] Hydromorphone HCl (Hydromorphone Inj 0.5 Mg/0.5 Ml Syr) 0.5 mg IV Q3HWA PRN PRN Reason: Pain Stop: 10/22/21 18:25 Last Admin: 10/09/21 07:35 Dose: 0.5 mg Documented by: [id number] Admin: 10/09/21 04:27 Dose: 0.5 mg Documented by: [id number] Admin: 10/09/21 01:19 Dose: 0.5 mg Documented by: [id number] Admin: 10/08/21 21:58 Dose: 0.5 mg Documented by: [id number] Sodium Chloride (Nss 1000ml) 1,000 mls @ 100 mls/hr IV .Q10H TEDDY Stop: 11/07/21 18:25 Last Admin: 10/09/21 04:27 Dose: 100 mls/hr Documented by: [id number] Infusion: 10/09/21 04:27 Dose: 100 mls/hr Documented by: [id number] Admin: 10/08/21 19:41 Dose: 100 mls/hr Documented by: [id number] Piperacillin Sod/Tazobactam (Sod 3.375 gm/ Dextrose) 115 mls @ 28.75 mls/hr IV Q8H TEDDY; Protocol Stop: 10/18/21 19:59 Last Infusion: 10/09/21 07:26 Dose: 0 mls/hr Documented by: [id number] Admin: 10/09/21 03:28 Dose: 28.8 mls/hr Documented by: [id number] Infusion: 10/08/21 23:32 Dose: 0 mls/hr Documented by: [id number] Admin: 10/08/21 19:58 Dose: 28.8 mls/hr Documented by: [id number] Pantoprazole Sodium 40 mg/ (Syringe) 10 mls @ 5 mls/min IV BID TEDDY Stop: 11/07/21 20:59 Last Admin: 10/09/21 07:35 Dose: 5 mls/min Documented by: [id number] Admin: 10/08/21 20:39 Dose: 5 mls/min Documented by: [id number] Ondansetron HCl (Ondansetron Inj 2 Mg/Ml 2 Ml Vial) 4 mg IV [id number] PRN PRN Reason: Nausea Stop: 11/07/21 18:25 Last Admin: 10/09/21 08:53 Dose: 4 mg Documented by: [id number] Admin: 10/09/21 01:28 Dose: 4 mg Documented by: [id number] Discontinued Medications Cefoxitin Sodium (Cefoxitin Sod 1 Gm Vial) Confirm Administered Dose 2,000 mg .ROUTE .STK-MED ONE Stop: 10/08/21 14:58 Last Admin: 10/08/21 16:20 Dose: 1 mg Documented by: [id number] Famotidine (Famotidine 20mg/5ml Iv Push) 20 mg IV ONE STA Stop: 10/08/21 11:02 Last Admin: 10/08/21 11:23 Dose: 20 mg Documented by: [id number] Fentanyl Citrate (Fentanyl Citrate 100 Mcg/2 Ml Vial) 25 mcg IV Q5M PRN PRN Reason: PACU Use Only-Pain Stop: 10/08/21 23:26 Last Admin: 10/08/21 17:49 Dose: 25 mcg Documented by: [id number] Admin: 10/08/21 17:38 Dose: 25 mcg Documented by: [id number] Admin: 10/08/21 17:09 Dose: 25 mcg Documented by: [id number] Hydromorphone HCl (Hydromorphone Inj 0.5 Mg/0.5 Ml Syr) 0.5 mg IV Q15M PRN PRN Reason: Pain Stop: 10/22/21 13:31 Last Admin: 10/08/21 13:38 Dose: 0.5 mg Documented by: [id number] Hydromorphone HCl (Hydromorphone Inj 0.5 Mg/0.5 Ml Syr) Confirm Administered Dose 0.5 mg .ROUTE .STK-MED ONE Stop: 10/08/21 19:13 Last Admin: 10/08/21 19:13 Dose: 0.5 mg Documented by: [id number] Piperacillin Sod/Tazobactam Sod (Zosyn) 4.5 gm in 120 mls @ 240 mls/hr IV NOW ONE Stop: 10/08/21 11:30 Last Infusion: 10/08/21 12:16 Dose: 0 mls/hr Documented by: [id number] Admin: 10/08/21 11:28 Dose: 240 mls/hr Documented by: [id number] Pantoprazole Sodium (Protonix Bolus/Drip) 0 mls @ 1 mls/hr IV ONE STA Stop: 10/08/21 11:02 Last Admin: 10/08/21 12:39 Dose: Not Given Documented by: [id number] Pantoprazole Sodium 40 mg/ (Dextrose) 100 mls @ 20 mls/hr IV Q5H TEDDY Stop: 11/07/21 11:29 Last Admin: 10/08/21 18:28 Dose: Not Given Documented by: [id number] Infusion: 10/08/21 18:28 Dose: 0 mg/hr, 0 mls/hr Documented by: [id number] Admin: 10/08/21 12:10 Dose: 8 mg/hr, 20 mls/hr Documented by: [id number] Pantoprazole Sodium 80 mg/ (Dextrose) 120 mls @ 400 mls/hr IV NOW ONE Stop: 10/08/21 11:18 Last Infusion: 10/08/21 12:16 Dose: 0 mls/hr Documented by: [id number] Admin: 10/08/21 11:45 Dose: 400 mls/hr Documented by: [id number] Morphine Sulfate (Morphine Sulfate 4 Mg/Ml 1 Ml Carp\Vial) 4 mg IV NOW STA Stop: 10/08/21 08:54 Last Admin: 10/08/21 09:00 Dose: 4 mg Documented by: [id number] Morphine Sulfate (Morphine Sulfate 4 Mg/Ml 1 Ml Carp\Vial) 4 mg IV NOW STA Stop: 10/08/21 10:31 Last Admin: 10/08/21 10:45 Dose: 4 mg Documented by: [id number] Ondansetron HCl (Ondansetron Inj 2 Mg/Ml 2 Ml Vial) 4 mg IV NOW STA Stop: 10/08/21 08:54 Last Admin: 10/08/21 09:00 Dose: 4 mg Documented by: [id number]
[2021-10-09] MEDS ORDERED: HEPARIN SOD 5,000 UNIT/0.5 ML VIAL SQ SCH (09:00)
[2021-10-09] MEDS: LEVOTHYROXINE SODIUM 25 MCG in SYRINGE 0 ML IV SCH (09:40)
[2021-10-09] MEDS: LORazepam 0.5 MG/1 ML VIAL IV PRN (13:55)
[2021-10-09] MEDS: D5W AND 1/2NSS + 20MEQ KCL 20 MEQ/1,000 ML BAG IV SCH (14:24)
[2021-10-10] MEDS: D5W AND 1/2NSS + 20MEQ KCL 20 MEQ/1,000 ML BAG IV SCH ×3 (00:36→18:25)
[2021-10-10] MEDS: HYDROmorphone INJ 0.5 MG/0.5 ML SYR IV PRN ×2 (02:48→08:08)
[2021-10-10] MEDS: ONDANSETRON INJ 2 MG/ML 2 ML VIAL IV PRN ×3 (02:50→14:07)
[2021-10-10] MEDS: PIPERACILLIN/TAZOBACTAM 3.375 GM in DEXTROSE 5% 100 ML IV SCH ×3 (04:03→22:20)
[2021-10-10] MEDS: PANTOprazole 40 MG in SYRINGE 0 ML IV SCH ×2 (08:07→22:23)
[2021-10-10] MEDS: HEPARIN SOD 5,000 UNIT/0.5 ML VIAL SQ SCH (08:08)
[2021-10-10] MEDS ORDERED: HYDROmorphone PCA 30 MG/30 ML IV PRN (08:19)
[2021-10-10] MEDS ORDERED: NALOXONE HCL 0.4 MG/1 ML VIAL/CARP IV PRN (08:19)
[2021-10-10] MEDS: SODIUM CHLORIDE 0.9% 1000ML 1,000 ML IV SCH (08:47)
[2021-10-10 08:58] LABS: Phosphorus 2.8 mg/dl (2.5-4.9)
--- NOTE | 2021-10-10 09:24 | Surgery Progress Note ---
Date of Service October 10, 2021 Assessment & Plan (1) S/P exploratory laparotomy: Plan: POD#2 exlap, primary repair of GJ perforation in pt with history of gastric bypass VSS, labs pending Pt expressing some ongoing abdominal pain. Belly is soft, non distended, wounds c/d/i. anabella in place Will try a dilaudid [employer] for now while patient is NPO Continue strict NPO for next 48 hours, may consider some small sips for comfort on Wednesday if doing well May perform contrast study early next wk pending progress to r/o leak Continue IV abx, JOSÉ drain D/c villa today Out of bed as tolerates [facility] surgery covering for the weekend Admission and Anticipated Discharge Date Admission Date: October 08, 2021 Subjective Patient tearful this AM, complaining of some abdominal pain. Says the pain meds works, but wears off. Some slight nausea. Wants to get out of bed today and wash face/hair up some. Physical Exam Physical Exam: awake alert Gastrointestinal (Abdomen): Inspection/Auscultation: + abdominal surgical incision (c/d/i , midline jennifer and anabella drain, scant drainage); abdomen not distended Percussion/Palpation: + abdomen tender (raymundo-incisional d iscomfort to palpation) and abdomen soft JOSÉ serosang. Results & Data ([facility]) Vital Signs (Past 12 Hours) Vital Signs Temp Pulse Resp BP Pulse Ox 10/09/21 22:32 36.7 C 70 16 120/79 92 PG Care Time/CCT Total # of Minutes Spent Total Time Spent with Patient: Total time spent is greater than 50% in coordination of care (as documented) at patient's floor/unit and/or counseling patient: Coding Level of Care Code None Diagnoses S/P exploratory laparotomy Z98.890
[2021-10-10] MEDS: LORazepam 0.5 MG/1 ML VIAL IV PRN (14:07)
--- NOTE | 2021-10-10 15:32 | Nuclear Medicine Report ---
NUCLEAR PULMONARY PERFUSION SCAN CLINICAL HISTORY: Atypical chest pain. COMPARISON STUDY: Nuclear perfusion scan dated 07/30/2020. Chest x-ray dated 10/08/2021. TECHNIQUE: Pulmonary perfusion scan of both lungs is performed following the IV administration of 5. mCi of technetium 99m MAA. Images were acquired in the anterior, posterior, and oblique projections. FINDINGS: A chest x-ray performed 10/08/2021 shows no acute abnormality. Perfusion is heterogeneous. 2 peripheral perfusion defects are suggested in the left lung. This repre sents a change from 07/30/2020. IMPRESSION: 2 perfusion defects are suggested in the left lung. These are suspicious for pulmonary em bolus and correlation with a CT angiogram of the chest is recommended. ACT 112: Negative or not required by law. Electronically signed by: Chalino Gaxiola M.D. 10/10/2021 3:31 PM
--- NOTE | 2021-10-10 15:53 | Ultrasound Report ---
RIGHT LOWER EXTREMITY VENOUS DOPPLER HISTORY: Right leg edema, r/o dvt COMPARISON STUDY: None. FINDINGS: There is normal compressibility, flow, and augmentation within the right lower extremity de ep venous system. IMPRESSION: No DVT within the right lower extremity ACT 112: Negative or not required by law. Electronically signed by: Lonnie Abernathy M.D. 10/10/2021 3:52 PM
[2021-10-10] MEDS ORDERED: Heparin IV Adult Wt-Based Low-Dose *NO* Bolus Protocol IV SCH (15:56)
[2021-10-10 16:48] LABS: Basophils # (auto) 0.01 K/uL (0-0.2); Basophils % (auto) 0.1 %; Eosinophils # (auto) 0.06 K/uL (0-0.5); Eosinophils % (auto) 0.8 %; Hematocrit (blood only) 41.5 % (37-47); Hemoglobin 13.1 g/dL (12.0-16.0); Immature Granulocytes # (auto) 0.01 K/uL (0.00-0.02); Immature Granulocytes % (auto) 0.1 %; Lymphocytes # (auto) 1.78 K/uL (1.2-3.4); Lymphocytes % (auto) 22.6 %; Mean Corpuscular Hemoglobin 27.9 pg (25-34); Mean Corpuscular Volume 88.3 fL (80-100); Mean Platelet Volume 10.3 fL (7.4-10.4); Monocytes # (auto) 0.61 K/uL (0.11-0.59); Monocytes % (auto) 7.7 %; Neutrophils # (auto) 5.41 K/uL (1.4-6.5); Neutrophils % (auto) 68.7 %; Platelet Count 226 K/uL (130-400); RDW Coefficient of Variation 19.3 % (11.5-14.5); RDW Standard Deviation 62.7 fL (36.4-46.3); White Blood Count 7.88 K/uL (4.8-10.8)
[2021-10-10] MEDS: HEPARIN SODIUM/DEXTROSE 25,000 UNITS/500 ML BAG IV SCH (16:52)
[2021-10-10 17:04] LABS: Mean Corpuscular Hgb Conc 31.6 g/dL (32-36)
[2021-10-10 17:06] LABS: Partial Thromboplastin Time 27.1 Seconds (21.0-31.0)
--- NOTE | 2021-10-10 17:31 | Hospitalist Progress Note ---
Date of Service October 10, 2021 Assessment & Plan (1) Peritonitis: (2) S/P exploratory laparotomy: Plan: POD #2 - post-operative management per primary team afebrile peritoneal fluid cultures: pending continue Zosyn IV (3) Acute pulmonary embolism: Plan: d dimer elevated at 1000s patient report left sided chest discomfort VQ scan: (+) 2 PE's on the left lung Doppler US of the RLE: negative discussed with Dr. Bowie Heparin drip started (4) Hypothyroid: Plan: - Continue IV levothyroxine - transition to oral once okay with primary team (5) Anxiety: Plan: - IV lorazepam Q8 hrs PRN (6) Major depressive disorder: Plan: Resume oral outpatient meds once okay with primary team Plan: Thank you for this consultation. We will follow the patient with you during their hospital stay. You can reach a member of the [facility] Hospitalist Team 26/04 via pager @ [phone]. Admission and Anticipated Discharge Date Admission Date: October 08, 2021 Subjective ff up for s/p omental patch, abdominal washout etc seen resting in bed, comfortable not in distress states surgical sites still feel sore reports left sided chest , shoulder, posterior shoulder discomfort- constant no dyspnea, cough, fever/chills, leg pain no other symptoms Review of Systems Constitutional: all noted and negative except for above Physical Exam Physical Exam: General- oriented x 3, not in distress, speaks in sentences with no effort or accessory muscle use Eyes- anicteric Neck- no JVD Lungs- clear breath sounds bilaterally, no rales/wheezes Heart- normal rate, regular rhythm; no murmurs Abdomen- normal bowel sounds, nondistended, soft, nontender (+) surgical dressing: no bleeding/discharge Extremities- mild RLE edema, no calf tenderness Neuro- alert, oriented x 3; no gross focal neurologic deficits Skin- warm & dry Results & Data Results & Data ([facility]) Vital Signs (Past 12 Hours) Vital Signs Temp Pulse Resp BP Pulse Ox 10/10/21 14:13 37 C 62 16 122/81 95 10/10/21 11:18 36.8 C 59 L 20 122/81 96 all noted and reviewed including below
[2021-10-10 23:37] LABS: Partial Thromboplastin Ratio 1.2; Partial Thromboplastin Time 32.6 Seconds (21.0-31.0)
[2021-10-11] MEDS ORDERED: HEPARIN IV BOLUS 3,000 UNITS in SYRINGE 0 ML IV ONE (00:45)
[2021-10-11] MEDS: D5W AND 1/2NSS + 20MEQ KCL 20 MEQ/1,000 ML BAG IV SCH ×2 (04:55→15:49)
[2021-10-11] MEDS: PIPERACILLIN/TAZOBACTAM 3.375 GM in DEXTROSE 5% 100 ML IV SCH ×3 (04:56→20:01)
[2021-10-11] MEDS: SODIUM CHLORIDE 0.9% 1000ML 1,000 ML IV SCH (06:43)
[2021-10-11 08:06] LABS: Basophils # (auto) 0.03 K/uL (0-0.2); Basophils % (auto) 0.4 %; Eosinophils # (auto) 0.23 K/uL (0-0.5); Eosinophils % (auto) 3.4 %; Hematocrit (blood only) 37.6 % (37-47); Hemoglobin 11.8 g/dL (12.0-16.0); Immature Granulocytes # (auto) 0.01 K/uL (0.00-0.02); Immature Granulocytes % (auto) 0.1 %; Mean Corpuscular Hemoglobin 27.3 pg (25-34); Mean Corpuscular Hgb Conc 31.4 g/dL (32-36); Mean Platelet Volume 10.5 fL (7.4-10.4); Monocytes # (auto) 0.78 K/uL (0.11-0.59); Monocytes % (auto) 11.5 %; Neutrophils # (auto) 3.41 K/uL (1.4-6.5); Neutrophils % (auto) 50.6 %; Platelet Count 217 K/uL (130-400); RDW Coefficient of Variation 18.8 % (11.5-14.5); Red Blood Count 4.32 M/uL (4.2-5.4); White Blood Count 6.76 K/uL (4.8-10.8)
[2021-10-11 08:32] LABS: BUN Creatinine Ratio 7.3 (10-20); Calcium 8.6 mg/dl (8.5-10.1); Est GFR (African American) 88.2 ml/min; Est GFR (Non-African American) 76.1 ml/min; Magnesium 1.9 mg/dl (1.8-2.4); Partial Thromboplastin Ratio 1.9; Phosphorus 3.1 mg/dl (2.5-4.9); Potassium 3.6 mmol/L (3.5-5.1)
[2021-10-11] MEDS: PANTOprazole 40 MG in SYRINGE 0 ML IV SCH ×2 (08:57→20:02)
--- NOTE | 2021-10-11 11:35 | Surgery Progress Note ---
Date of Service October 11, 2021 Assessment & Plan (1) Acute pulmonary embolism: Plan: on heparin gtt. Management as per medicine. Awaiting repeat covid test due to exposure. (2) S/P exploratory laparotomy: Plan: for perforation at gastrojejunal anastamosis repaired primarily with omental patch. Doing well. NPO until Wednesday at which time swallow eval will be done with plans to advance diet if no leak. Keep drain. Increase activity as tolerated. Admission and Anticipated Discharge Date Admission Date: October 08, 2021 Subjective Sitting up in bed. Still with abdominal pain, responsive to medical records assistant . Wondering about discharge plans - recliner at home, home health for wound, etc. No nausea or vomiting. On heparin gtt as V/Q scan yesterday was suggestive of PE Review of Systems Review of Systems: All systems reviewed & are unremarkable except as noted in HPI & below Physical Exam Constitutional: WD/WN, vitals as above Eyes: PERRL, conjunctivae normal, anicteric sclerae Respiratory: normal respiratory effort, lungs clear to auscultation Cardiovascular: RRR, no murmur, no edema Gastrointestinal (Abdomen): Inspection/Auscultation: abdomen normal to inspection and normal bowel sounds; abdomen not distended Percussion/Palpation: abdomen soft; no guarding incision clean and intact with serosanguinous drainage from anabella, JOSÉ with serosanguinous drainage Neurologic: no focal motor deficits Results & Data ([facility]) Vital Signs (Past 12 Hours) Vital Signs Temp Pulse Resp BP Pulse Ox 10/11/21 07:35 36.6 C 62 16 114/77 96 Laboratory Results Abnormal lab results 10/10/21 10/10/21 10/11/21 Range/Units 16:37 23:02 07:46 Hgb (12.0-16.0) g/dL MCHC 31.6 L (32-36) g/dL RDW Std Deviation 62.7 H (36.4-46.3) fL RDW Coeff of [place] 19.3 H (11.5-14.5) % MPV (7.4-10.4) fL Morgan # (Auto) 0.61 H (0.11-0.59) K/uL APTT 32.6 H (21.0-31.0) Seconds Chloride 109 H (98-107) mmol/L BUN 6 L (7-18) mg/dl BUN/Creatinine Ratio 7.3 L (10-20) 10/11/21 10/11/21 Range/Units 07:46 07:46 Hgb 11.8 L (12.0-16.0) g/dL MCHC 31.4 L (32-36) g/dL RDW Std Deviation 61.0 H (36.4-46.3) fL RDW Coeff of [place] 18.8 H (11.5-14.5) % MPV 10.5 H (7.4-10.4) fL Morgan # (Auto) 0.78 H (0.11-0.59) K/uL APTT 51.0 H* (21.0-31.0) Seconds Chloride (98-107) mmol/L BUN (7-18) mg/dl BUN/Creatinine Ratio (10-20)
--- NOTE | 2021-10-11 13:11 | Hospitalist Progress Note ---
Date of Service October 11, 2021 Assessment & Plan (1) Peritonitis: (2) S/P exploratory laparotomy: Plan: POD #3 - post-operative management per primary team afebrile peritoneal fluid cultures: no growth to date continue Zosyn IV (3) Acute pulmonary embolism: Plan: d dimer elevated at 1000s patient report left sided chest discomfort VQ scan: (+) 2 PE's on the left lung Doppler US of the RLE: negative discussed with Dr. Bowie Heparin drip started 10/10/21 10/11/21 HD stable, on room air no bleeding continue Heparin drip (4) Hypothyroid: Plan: - Continue IV levothyroxine - transition to oral once okay with primary team (5) Anxiety: Plan: - IV lorazepam Q8 hrs PRN (6) Major depressive disorder: Plan: Resume oral outpatient meds once okay with primary team Plan: Thank you for this consultation. We will follow the patient with you during their hospital stay. You [facility] via pager @ [phone]. Admission and Anticipated Discharge Date Admission Date: October 08, 2021 Subjective ff up for acute PE, post op state, etc seen resting in bed, comfortable states she feels better today no dyspnea left chest pain, and shoulder pain resolving no palpitations, dizziness no bleeding soreness on the abdomen somewhat improving (+) flatus no other symptoms Review of Systems Review of Systems: all noted and negative except for above Physical Exam Physical Exam: General- oriented x 3, not in distress, speaks in sentences with no effort or accessory muscle use Eyes- anicteric Neck- no JVD Lungs- clear breath sounds bilaterally, no rales/wheezes Heart- normal rate, regular rhythm; no murmurs Abdomen- normal bowel sounds, nondistended, soft, nontender Extremities- no pretibial edema, no calf tenderness dressing in place: no bleeding or discharge Neuro- alert, oriented x 3; no gross focal neurologic deficits Skin- warm & dry Results & Data Results & Data ([facility]) Vital Signs (Past 12 Hours) Vital Signs Temp Pulse Resp BP Pulse Ox 10/11/21 07:35 36.6 C 62 16 114/77 96 all noted and reviewed including below
[2021-10-11] MEDS: HEPARIN SODIUM/DEXTROSE 25,000 UNITS/500 ML BAG IV SCH (16:06)
[2021-10-12] MEDS: D5W AND 1/2NSS + 20MEQ KCL 20 MEQ/1,000 ML BAG IV SCH ×3 (04:12→22:02)
[2021-10-12] MEDS: PIPERACILLIN/TAZOBACTAM 3.375 GM in DEXTROSE 5% 100 ML IV SCH ×3 (04:13→21:58)
[2021-10-12 06:41] LABS: Basophils # (auto) 0.02 K/uL (0-0.2); Basophils % (auto) 0.4 %; Eosinophils % (auto) 5.6 %; Hematocrit (blood only) 38.2 % (37-47); Hemoglobin 12.1 g/dL (12.0-16.0); Immature Granulocytes # (auto) 0.01 K/uL (0.00-0.02); Immature Granulocytes % (auto) 0.2 %; Lymphocytes # (auto) 1.72 K/uL (1.2-3.4); Lymphocytes % (auto) 31.9 %; Mean Corpuscular Hemoglobin 27.4 pg (25-34); Mean Corpuscular Hgb Conc 31.7 g/dL (32-36); Mean Corpuscular Volume 86.6 fL (80-100); Mean Platelet Volume 10.1 fL (7.4-10.4); Monocytes % (auto) 9.3 %; Neutrophils # (auto) 2.85 K/uL (1.4-6.5); Neutrophils % (auto) 52.6 %; Platelet Count 214 K/uL (130-400); RDW Coefficient of Variation 18.2 % (11.5-14.5); Red Blood Count 4.41 M/uL (4.2-5.4)
[2021-10-12 06:56] LABS: Partial Thromboplastin Ratio 1.6; Partial Thromboplastin Time 43.3 Seconds (21.0-31.0)
[2021-10-12 07:19] LABS: BUN Creatinine Ratio 6.1 (10-20); Calcium 8.6 mg/dl (8.5-10.1); Est GFR (African American) 93.3 ml/min; Est GFR (Non-African American) 80.5 ml/min; Potassium 3.7 mmol/L (3.5-5.1)
[2021-10-12] MEDS: SODIUM CHLORIDE 0.9% 1000ML 1,000 ML IV SCH (07:41)
[2021-10-12] MEDS: PANTOprazole 40 MG in SYRINGE 0 ML IV SCH ×2 (08:09→22:01)
[2021-10-12] MEDS: LEVOTHYROXINE SODIUM 25 MCG in SYRINGE 0 ML IV SCH (08:20)
--- NOTE | 2021-10-12 10:23 | Surgery Progress Note ---
Date of Service October 12, 2021 Assessment & Plan (1) Acute pulmonary embolism: Plan: on heparin gtt. Management as per medicine. Awaiting repeat covid test due to exposure. (2) S/P exploratory laparotomy: Plan: for perforation at gastrojejunal anastamosis repaired primarily with omental patch. Doing well. NPO until Wednesday at which time swallow eval will be done with plans to advance diet if no leak. OK to have some ice chips today. Keep drain. Increase activity as tolerated. Admission and Anticipated Discharge Date Admission Date: October 08, 2021 Subjective Overall feeling OK. Abdominal pain but this is improving daily. No nausea or vomiting. Passing some flatus but no bowel movement. Physical Exam Constitutional: WD/WN, vitals as above Eyes: PERRL, conjunctivae normal, anicteric sclerae Respiratory: normal respiratory effort, lungs clear to auscultation Cardiovascular: RRR, no murmur, no edema Gastrointestinal (Abdomen): Inspection/Auscultation: abdomen normal to inspection, normal bowel sounds, + abdominal surgical incision (clean, anabella in place, some serosanguinous drainage from anabella) and + abdominal surgical drain present (serous); abdomen not distended Percussion/Palpation: abdomen soft; no guarding Neurologic: no focal motor deficits Results & Data ([facility]) Vital Signs (Past 12 Hours) Vital Signs Temp Pulse Resp BP Pulse Ox 10/12/21 08:02 36.6 C 70 16 109/72 95 Laboratory Results Abnormal lab results 10/12/21 10/12/21 10/12/21 Range/Units 06:13 06:13 06:13 MCHC 31.7 L (32-36) g/dL RDW Std Deviation 58.0 H (36.4-46.3) fL RDW Coeff of [place] 18.2 H (11.5-14.5) % APTT 43.3 H (21.0-31.0) Seconds Chloride 109 H (98-107) mmol/L BUN 5 L (7-18) mg/dl BUN/Creatinine Ratio 6.1 L (10-20)
[2021-10-12 13:32] LABS: Partial Thromboplastin Ratio 1.6; Partial Thromboplastin Time 42.7 Seconds (21.0-31.0)
[2021-10-12] MEDS: HEPARIN SODIUM/DEXTROSE 25,000 UNITS/500 ML BAG IV SCH (13:39)
--- NOTE | 2021-10-12 15:39 | Hospitalist Progress Note ---
Date of Service October 12, 2021 Assessment & Plan (1) Peritonitis: (2) S/P exploratory laparotomy: Plan: POD #4 - post-operative management per primary team afebrile peritoneal fluid cultures: no growth to date continue Zosyn IV (3) Acute pulmonary embolism: Plan: d dimer elevated at 1000s patient report left sided chest discomfort VQ scan: (+) 2 PE's on the left lung Doppler US of the RLE: negative discussed with Dr. Bowie Heparin drip started 10/10/21 10/12/21 HD stable, on room air no bleeding continue Heparin drip transition to coumadin or NOACs when ok with Gen Surg (4) Hypothyroid: Plan: - Continue IV levothyroxine - transition to oral once okay with primary team (5) Anxiety: Plan: - IV lorazepam Q8 hrs PRN (6) Major depressive disorder: Plan: Resume oral outpatient meds once okay with primary team Plan: Thank you for this consultation. We will follow the patient with you during their hospital stay. You can reach a [facility] via pager @ [phone]. Admission and Anticipated Discharge Date Admission Date: October 08, 2021 Subjective ff up for acute PE, post op state, etc seen resting in bed, reading a book states she feels ok overall no chest pain, shoulder pain surgical site with some soreness tolerating ice chips well no bleeding no other symptoms Review of Systems Review of Systems: all noted and negative except for above Physical Exam Physical Exam: General- oriented x 3, not in distress, speaks in sentences with no effort or accessory muscle use Eyes- anicteric Neck- no JVD Lungs- clear BS BL no rales/wheezing Heart- normal rate, regular rhythm; no murmurs Abdomen- normal bowel sounds, nondistended, soft, nontender Extremities- no pretibial edema, no calf tenderness Neuro- alert, oriented x 3; no gross focal neurologic deficits Skin- warm & dry Results & Data Results & Data ([facility]) Vital Signs (Past 12 Hours) Vital Signs Temp Pulse Resp BP Pulse Ox 10/12/21 08:02 36.6 C 70 16 109/72 95 all noted and reviewed including below
[2021-10-12] MEDS: LORazepam 0.5 MG/1 ML VIAL IV PRN (17:37)
[2021-10-12 20:46] LABS: Partial Thromboplastin Ratio 1.6; Partial Thromboplastin Time 42.3 Seconds (21.0-31.0)
[2021-10-13 03:43] LABS: Partial Thromboplastin Ratio 1.9
[2021-10-13 03:45] LABS: Partial Thromboplastin Time 48.9 Seconds (21.0-31.0)
[2021-10-13] MEDS: PIPERACILLIN/TAZOBACTAM 3.375 GM in DEXTROSE 5% 100 ML IV SCH ×3 (04:24→21:14)
[2021-10-13] MEDS: SODIUM CHLORIDE 0.9% 1000ML 1,000 ML IV SCH (07:13)
[2021-10-13] MEDS: PANTOprazole 40 MG in SYRINGE 0 ML IV SCH ×2 (07:33→21:15)
[2021-10-13] MEDS: D5W AND 1/2NSS + 20MEQ KCL 20 MEQ/1,000 ML BAG IV SCH ×2 (07:33→18:38)
--- NOTE | 2021-10-13 07:39 | Surgery Progress Note ---
Date of Service October 13, 2021 Assessment & Plan (1) S/P exploratory laparotomy: Plan: History of perforation of gastrojejunostomy History of COVID exposure History of abnormal VQ scan indicating pulmonary emboli currently on IV heparin Apparently she is to be retested today but has been asymptomatic regarding COVID I did order an upper GI to assess for leak-if negative we will then advance her diet Patient has Dilaudid [employer] pump for now Can begin p.o. pain meds after the swallow Admission and Anticipated Discharge Date Admission Date: October 08, 2021 Results & Data ([facility]) Vital Signs (Past 12 Hours) Vital Signs Temp Pulse Resp BP Pulse Ox 10/13/21 07:35 36.5 C 66 16 107/72 95 10/13/21 07:32 36.7 C 96 H 16 118/79 97 10/13/21 04:38 36.5 C 74 18 113/70 93 10/12/21 21:49 36.6 C 68 16 126/76 98 10/12/21 19:55 36.7 C 70 20 110/75 96 PG Care Time/CCT Total # of Minutes Spent Total Time Spent with Patient: Total time spent is greater than 50% in coordination of care (as documented) at patient's floor/unit and/or counseling patient: Coding Level of Care Code None Diagnoses S/P exploratory laparotomy Z98.890
[2021-10-13 08:26] LABS: Basophils # (auto) 0.01 K/uL (0-0.2); Basophils % (auto) 0.2 %; Eosinophils # (auto) 0.34 K/uL (0-0.5); Eosinophils % (auto) 6.5 %; Hematocrit (blood only) 37.4 % (37-47); Hemoglobin 11.8 g/dL (12.0-16.0); Immature Granulocytes # (auto) 0.01 K/uL (0.00-0.02); Immature Granulocytes % (auto) 0.2 %; Lymphocytes # (auto) 1.78 K/uL (1.2-3.4); Lymphocytes % (auto) 34.2 %; Mean Corpuscular Hemoglobin 27.1 pg (25-34); Mean Corpuscular Hgb Conc 31.6 g/dL (32-36); Mean Corpuscular Volume 85.8 fL (80-100); Mean Platelet Volume 9.7 fL (7.4-10.4); Monocytes # (auto) 0.49 K/uL (0.11-0.59); Monocytes % (auto) 9.4 %; Neutrophils # (auto) 2.58 K/uL (1.4-6.5); Neutrophils % (auto) 49.5 %; Platelet Count 222 K/uL (130-400); RDW Coefficient of Variation 17.8 % (11.5-14.5); Red Blood Count 4.36 M/uL (4.2-5.4); White Blood Count 5.21 K/uL (4.8-10.8)
[2021-10-13 08:49] LABS: BUN Creatinine Ratio 5.5 (10-20); Calcium 8.5 mg/dl (8.5-10.1); Creatinine Clr Calc Pharmacy 81.8 ml/min; Est GFR (African American) 89.4 ml/min; Est GFR (Non-African American) 77.1 ml/min; Potassium 3.8 mmol/L (3.5-5.1)
[2021-10-13] MEDS ORDERED: CASPOFUNGIN 70 MG in SODIUM CHLORIDE 0.9% 250 ML IV ONE (10:00)
[2021-10-13] MEDS: HEPARIN SODIUM/DEXTROSE 25,000 UNITS/500 ML BAG IV SCH (11:53)
--- NOTE | 2021-10-13 13:54 | Hospitalist Progress Note ---
Date of Service October 13, 2021 Assessment & Plan (1) Peritonitis: (2) S/P exploratory laparotomy: Plan: POD #5- post-operative management per primary team afebrile peritoneal fluid cultures: (+) Yeast not nandini continue Zosyn IV Caspofungin started 10/13/21 (3) Acute pulmonary embolism: Plan: d dimer elevated at 1000s patient report left sided chest discomfort VQ scan: (+) 2 PE's on the left lung CT angio contraindicated as patient has allergic reaction (throat tightens) to iodinated contrast media Doppler US of the RLE: negative discussed with Dr. Bowie Heparin drip started 10/10/21 10/13/21 HD stable, on room air no bleeding continue Heparin drip transition to coumadin or NOACs when ok with Gen Surg (4) Hypothyroid: Plan: - Continue IV levothyroxine - transition to oral once okay with primary team (5) Anxiety: Plan: - IV lorazepam Q8 hrs PRN (6) Major depressive disorder: Plan: Resume oral outpatient meds once okay with primary team Plan: Thank you for this consultation. We will follow the patient with you during their hospital stay. You can [facility] a [facility] via pager @ [phone]. Admission and Anticipated Discharge Date Admission Date: October 08, 2021 Subjective ff up for post op state, acute bilateral PE seen resting in bed, comfortable states she feels better overall no chest pain, dyspnea, palpitations, dizziness no bleeding no cough abdominal soreness improving no other symptoms Review of Systems Review of Systems: all noted and negative except for above Physical Exam Physical Exam: General- oriented x 3, not in distress, speaks in sentences with no effort or accessory muscle use Eyes- anicteric Neck- no JVD Lungs- clear BS BL no rales/wheezing Heart- normal rate, regular rhythm; no murmurs Abdomen- normal bowel sounds, nondistended, soft, nontender (+) surgical dressing- no bleeding or discharge and drain in place- small amount of serosanguinous outout Extremities- no pretibial edema, no calf tenderness Neuro- alert, oriented x 3; no gross focal neurologic deficits Skin- warm & dry Results & Data Results & Data ([facility]) Vital Signs (Past 12 Hours) Vital Signs Temp Pulse Resp BP Pulse Ox 10/13/21 07:35 36.5 C 66 16 107/72 95 10/13/21 07:32 36.7 C 96 H 16 118/79 97 10/13/21 04:38 36.5 C 74 18 113/70 93 all noted and reviewed including below
[2021-10-14] MEDS: PIPERACILLIN/TAZOBACTAM 3.375 GM in DEXTROSE 5% 100 ML IV SCH ×3 (04:01→20:34)
[2021-10-14 05:46] LABS: Basophils # (auto) 0.02 K/uL (0-0.2); Basophils % (auto) 0.4 %; Eosinophils # (auto) 0.29 K/uL (0-0.5); Eosinophils % (auto) 5.2 %; Hematocrit (blood only) 38.9 % (37-47); Hemoglobin 12.3 g/dL (12.0-16.0); Lymphocytes # (auto) 1.84 K/uL (1.2-3.4); Lymphocytes % (auto) 32.8 %; Mean Corpuscular Hemoglobin 27.3 pg (25-34); Mean Corpuscular Hgb Conc 31.6 g/dL (32-36); Mean Corpuscular Volume 86.4 fL (80-100); Mean Platelet Volume 9.9 fL (7.4-10.4); Monocytes # (auto) 0.57 K/uL (0.11-0.59); Monocytes % (auto) 10.2 %; Neutrophils # (auto) 2.89 K/uL (1.4-6.5); Neutrophils % (auto) 51.4 %; Platelet Count 246 K/uL (130-400); RDW Coefficient of Variation 17.7 % (11.5-14.5); White Blood Count 5.61 K/uL (4.8-10.8)
[2021-10-14] MEDS: D5W AND 1/2NSS + 20MEQ KCL 20 MEQ/1,000 ML BAG IV SCH ×2 (06:06→17:44)
[2021-10-14 06:19] LABS: Partial Thromboplastin Ratio 1.9
[2021-10-14 06:29] LABS: Partial Thromboplastin Time 49.2 Seconds (21.0-31.0)
[2021-10-14] MEDS: SODIUM CHLORIDE 0.9% 1000ML 1,000 ML IV SCH (07:52)
[2021-10-14] MEDS: PANTOprazole 40 MG in SYRINGE 0 ML IV SCH (08:08)
[2021-10-14] MEDS: HEPARIN SODIUM/DEXTROSE 25,000 UNITS/500 ML BAG IV SCH (10:31)
--- NOTE | 2021-10-14 11:10 | Surgery Progress Note ---
Date of Service October 14, 2021 Assessment & Plan (1) S/P exploratory laparotomy: Plan: Patient with history of perforation at her gastrojejunostomy Currently on full liquids and tolerating On IV heparin On IV caspofungin Can transition to p.o. meds from a surgical standpoint Will likely DC her drains prior to discharge Admission and Anticipated Discharge Date Admission Date: October 08, 2021 Results & Data ([facility]) Vital Signs (Past 12 Hours) Vital Signs Temp Pulse Resp BP Pulse Ox 10/14/21 07:36 36.3 C L 77 16 102/72 96 PG Care Time/CCT Total # of Minutes Spent Total Time Spent with Patient: Total time spent is greater than 50% in coordination of care (as documented) at patient's floor/unit and/or counseling patient: Coding Level of Care Code None Diagnoses S/P exploratory laparotomy Z98.890
[2021-10-14] MEDS: CASPOFUNGIN 50 MG in SODIUM CHLORIDE 0.9% 250 ML IV SCH (11:17)
[2021-10-14] MEDS: buPROPion SR 150 MG TABCR PO SCH (12:23)
[2021-10-14] MEDS: GABAPENTIN 300 MG CAP PO SCH ×2 (13:47→20:36)
--- NOTE | 2021-10-14 15:23 | Hospitalist Progress Note ---
Date of Service October 14, 2021 Assessment & Plan (1) Peritonitis: (2) S/P exploratory laparotomy: Plan: POD #6- post-operative management per primary team remains afebrile peritoneal fluid cultures: (+) Yeast not nandini continue Zosyn IV day 6 Caspofungin IV day 2 (3) Acute pulmonary embolism: Plan: d dimer elevated at 1000s patient report left sided chest discomfort VQ scan: (+) 2 PE's on the left lung CT angio contraindicated as patient has allergic reaction (throat tightens) to iodinated contrast media Doppler US of the RLE: negative discussed with Dr. Bowei Heparin drip started 10/10/21 10/14/21 Remained hemodynamically stable, on room air no bleeding continue Heparin drip transition to coumadin or NOACs when ok with Gen Surg (4) Hypothyroid: Plan: Resume usual p.o. levothyroxine (5) Anxiety: Plan: - IV lorazepam Q8 hrs PRN (6) Major depressive disorder: Plan: Can have oral medications as per Dr. Bowie, resume usual outpatient psych meds today Plan: Thank you for this consultation. We will follow the patient with you during their hospital stay. You can reach a [facility] via pager @ [phone]. Admission and Anticipated Discharge Date Admission Date: October 08, 2021 Subjective Follow-up for status post repair of perforated viscus with omental patch, acute pulmonary embolism, etc. Seen resting in bed, comfortable, not in distress States she feels improved overall Left-sided chest pain improving, no shortness of breath, palpitations, cough, fevers or chills Pain over the surgical site in the abdomen improving, tolerating clear liquid diet so far No other symptoms Review of Systems Review of Systems: all noted and negative except for above Physical Exam Physical Exam: General- oriented x 3, not in distress, speaks in sentences with no effort or accessory muscle use Eyes- anicteric Neck- no JVD Lungs- clear breath sounds, no crackles or wheezing bilaterally Heart- normal rate, regular rhythm; no murmurs Abdomen- normal bowel sounds, nondistended, soft, nontender Extremities- no pretibial edema, no calf tenderness Neuro- alert, oriented x 3; no gross focal neurologic deficits Skin- warm & dry Results & Data Results & Data ([facility]) Vital Signs (Past 12 Hours) Vital Signs Temp Pulse Resp BP Pulse Ox 10/14/21 15:11 36.8 C 69 18 109/74 96 10/14/21 07:36 36.3 C L 77 16 102/72 96 all noted and reviewed including below
[2021-10-14] MEDS: PANTOprazole 40 MG TAB PO SCH (20:35)
[2021-10-14] MEDS: AMITRIPTYLINE HCL 25 MG TAB PO SCH (20:36)
[2021-10-15] MEDS: PIPERACILLIN/TAZOBACTAM 3.375 GM in DEXTROSE 5% 100 ML IV SCH ×3 (03:56→19:28)
[2021-10-15] MEDS: D5W AND 1/2NSS + 20MEQ KCL 20 MEQ/1,000 ML BAG IV SCH (03:56)
[2021-10-15 05:48] LABS: Partial Thromboplastin Ratio 2.4
[2021-10-15] MEDS: LEVOTHYROXINE SODIUM 50 MCG TABLET PO SCH (05:57)
[2021-10-15 06:03] LABS: Partial Thromboplastin Time 64.2 Seconds (21.0-31.0)
--- NOTE | 2021-10-15 07:47 | Surgery Progress Note ---
Date of Service October 15, 2021 Assessment & Plan (1) S/P exploratory laparotomy: Plan: History of perforation at her gastrojejunostomy site from ulcer disease Currently on IV heparin and IV caspofungin as well as Zosyn-continue for now Will need to transition to p.o. meds Coumadin per the medical team We will remove Deanna drain in place isacc Leave JOSÉ drain for now Advance diet to low fiber and asked utility assembler to see her Admission and Anticipated Discharge Date Admission Date: October 08, 2021 Results & Data ([facility]) Vital Signs (Past 12 Hours) Vital Signs Temp Pulse Resp BP Pulse Ox 10/14/21 22:30 36.6 C 75 18 114/74 96 PG Care Time/CCT Total # of Minutes Spent Total Time Spent with Patient: Total time spent is greater than 50% in coordination of care (as documented) at patient's floor/unit and/or counseling patient: Coding Level of Care Code None Diagnoses S/P exploratory laparotomy Z98.890
[2021-10-15] MEDS: GABAPENTIN 300 MG CAP PO SCH ×3 (07:59→21:00)
[2021-10-15] MEDS: buPROPion SR 150 MG TABCR PO SCH (07:59)
[2021-10-15] MEDS: PANTOprazole 40 MG TAB PO SCH ×2 (07:59→20:59)
[2021-10-15] MEDS: CASPOFUNGIN 50 MG in SODIUM CHLORIDE 0.9% 250 ML IV SCH (08:02)
[2021-10-15] MEDS: HEPARIN SODIUM/DEXTROSE 25,000 UNITS/500 ML BAG IV SCH (09:28)
[2021-10-15] MEDS: SODIUM CHLORIDE 0.9% 1000ML 1,000 ML IV SCH (09:32)
[2021-10-15 11:53] LABS: Est GFR (African American) 79.3 ml/min; Est GFR (Non-African American) 68.4 ml/min
--- NOTE | 2021-10-15 16:57 | Hospitalist Progress Note ---
Date of Service October 15, 2021 Assessment & Plan (1) Peritonitis: Plan: 2/2 perforated abdominal viscus s/p abdoinal washout with repair of anastomotic gastrojejunostomy. (2) S/P exploratory laparotomy: Plan: POD #7- post-operative management per primary team remains afebrile peritoneal fluid cultures: (+) Yeast not nandini continue Zosyn IV day 7 Caspofungin IV day 3 ID consulted and offers to transition patient to oral antifungals based on further speciation and sensitivities of the fungal culture, which per [facility] lab ,is not being performed. Zosyn may be stopped-will discuss with surgery prior to stopping (3) Acute pulmonary embolism: Plan: d dimer elevated at 1000s patient report left sided chest discomfort VQ scan: (+) 2 PE's on the left lung CT angio contraindicated as patient has allergic reaction (throat tightens) to iodinated contrast media Doppler US of the RLE: negative heparin drip started on 10/10/21 transitioned to Eliquis this evening. Would check cost for patient prior to discharge to ensure not cost prohibitive. (4) Hypothyroid: Plan: chronic, cont home levothyroxine. (5) Anxiety: Plan: - (6) Major depressive disorder: Plan: Cont home amitriptyline, gabapentin, bupropion. Plan: Thank you for this consultation. We will follow the patient with you during their hospital stay. You can reach a [facility] via pager @ [phone]. Consuelo Del Valle, [facility] Admission and Anticipated Discharge Date Admission Date: October 08, 2021 Subjective Follow-up for status post repair of perforated viscus with omental patch, acute pulmonary embolism Pt reports feeling some fullness and discomfort from potentially eating too much too quickly Reports being on a liquid diet prior to today. Drank regular coke, also which may have contributed to stomach fullness. On heparin and no overt bleeding. Discussed options with her regarding oral bl ood thinner options. She decided on apixaban which will be started this evening as a transition off heparin. Will check hendrickson for patient prior to discharge and continue with taper dose for acute PE. Otherwise denies any chest pain, SOB or other issues. was at bedside and became angry with me when I didn't know when and where Dr. Bowie wanted her to follow up with him Patient had a lot of questions and would ask more even before I would have a chance to answer the first question. She wanted to know if Dr. Bowie would be doing an ultrasound on her abdomen to ensure the infection has cleared. She also wanted to know if the nurses were "checking her blood clots" to see that they are healing. Made a valiant attempt to re-educate. Review of Systems Review of Systems: All systems were reviewed and negative except as indicated above. Physical Exam Physical Exam: CONSTITUTIONAL: WNWD, vitals as above, generally well- appearing, NAD EYES: normal conjunctivae, no scleral icterus ENT: external ear and nose normal, MMM NECK: trachea midline RESPIRATORY: clear to auscultation bilaterally, no crackles, rales or wheezes, normal respiratory effort CARDIOVASCULAR: regular rate and rhythm, S1 and 2 heard without murmurs, gallops or rubs, no JVD, no peripheral edema CHEST: inspection of chest was normal GASTROINTESTINAL: soft, mild tenderness in RLQ, no guarding, incision sites were covered with dressings that were c/d/i MUSCULOSKELETAL: strength 5/5 throughout, head is normocephalic and atraumatic SKIN: warm and dry NEUROLOGIC: CN 2-12 grossly intact, normal cognition, normal speech, no tremor, no gross focal deficits. PSYCHIATRIC: alert cooperative and oriented to person, place and time. Results & Data Results & Data ([facility]) Vital Signs (Past 12 Hours) Vital Signs Temp Pulse Resp BP Pulse Ox 10/15/21 15:19 36.6 C 79 16 108/70 97 10/15/21 07:55 36.6 C 73 16 93/62 L 97 Laboratory Results [facility] 10/15/21 11:10 Creatinine 0.95 Medications Administered Current Inpatient Medications Amitriptyline HCl (Amitriptyline Hcl 25 Mg Tab) 25 mg PO HS TEDDY Stop: 11/13/21 20:59 Last Admin: 10/15/21 20:59 Dose: 25 mg Documented by: Apixaban (Apixaban 5 Mg Tablet) 10 mg PO BID TEDDY Stop: 10/22/21 09:01 Last Admin: 10/15/21 21:30 Dose: 10 mg Documented by: Bupropion HCl (Bupropion Sr 150 Mg Tabcr) 150 mg PO DAILY TEDDY Stop: 11/13/21 11:59 Last Admin: 10/15/21 07:59 Dose: 150 mg Documented by: Gabapentin (Gabapentin 300 Mg Cap) 300 mg PO TID [facility] Stop: 11/13/21 13:59 Last Admin: 10/15/21 21:00 Dose: 300 mg Documented by: Promethazine HCl 12.5 mg/ (Sodium Chloride) 50.5 mls @ 204 mls/hr IV Q6H PRN PRN Reason: Nausea And Vomiting Stop: 11/07/21 18:25 Promethazine HCl 25 mg/ Sodium (Chloride) 51 mls @ 204 mls/hr IV Q6H PRN PRN Reason: Nausea And Vomiting Stop: 11/07/21 18:25 Last Infusion: 10/10/21 11:13 Dose: Infused Documented by: Piperacillin Sod/Tazobactam (Sod 3.375 gm/ Dextrose) 115 mls @ 28.75 mls/hr IV Q8H [facility]; Protocol Stop: 10/18/21 19:59 Last Admin: 10/15/21 19:28 Dose: 28.8 mls/hr Documented by: Lorazepam (Ativan) 0.5 mg in 1 mls @ 0.5 mls/min IV Q8H PRN PRN Reason: Anxiety Stop: 11/08/21 10:03 Last Admin: 10/12/21 17:37 Dose: 0.5 mls/min Documented by: Sodium Chloride (Nss 1000ml) 1,000 mls @ 15 mls/hr IV .Q24H [facility] Stop: 10/24/21 08:19 Last Admin: 10/15/21 09:32 Dose: Not Given Documented by: Caspofungin 50 mg/ Sodium (Chloride) 260 mls @ 260 mls/hr IV Q24H [facility] Stop: 10/24/21 08:59 Last Infusion: 10/15/21 09:42 Dose: Infused Documented by: Levothyroxine Sodium (Levothyroxine Sodium 50 Mcg Tablet) 50 mcg PO DAILYBB [facility] Stop: 11/14/21 06:29 Last Admin: 10/15/21 05:57 Dose: 50 mcg Documented by: Miscellaneous Information (Piperacill/Tazobac Consult Active) 1 ea N/A UD PRN PRN Reason: Consult Stop: 11/07/21 18:25 Naloxone HCl (Naloxone Hcl 0.4 Mg/1 Ml Vial/Carp) 0.1 mg IV Q5M PRN; Protocol PRN Reason: Oversedation/Resp Depression Stop: 10/24/21 08:18 Ondansetron HCl (Ondansetron Inj 2 Mg/Ml 2 Ml Vial) 4 mg IV [id number] PRN PRN Reason: Nausea Stop: 11/08/21 08:53 Last Admin: 10/10/21 14:07 Dose: 4 mg Documented by: Oxycodone HCl (Oxycodone Hcl Ir 5 Mg Tab (Immediate Release)) 5 mg PO Q4HWA PRN PRN Reason: Pain Stop: 10/29/21 06:27 Last Admin: 10/15/21 20:59 Dose: 5 mg Documented by: Pantoprazole Sodium (Pantoprazole 40 Mg Tab) 40 mg PO BID TEDDY Stop: 11/13/21 20:59 Last Admin: 10/15/21 20:59 Dose: 40 mg Documented by:
[2021-10-15] MEDS ORDERED: HEPARIN STOP ORDER ONE (20:30)
[2021-10-15] MEDS: AMITRIPTYLINE HCL 25 MG TAB PO SCH (20:59)
[2021-10-15] MEDS: oxyCODONE HCL IR 5 MG TAB (IMMEDIATE RELEASE) PO PRN (20:59)
[2021-10-15] MEDS: APIXABAN 5 MG TABLET PO SCH (21:30)
[2021-10-16] MEDS: PIPERACILLIN/TAZOBACTAM 3.375 GM in DEXTROSE 5% 100 ML IV SCH (03:23)
[2021-10-16] MEDS: oxyCODONE HCL IR 5 MG TAB (IMMEDIATE RELEASE) PO PRN ×4 (03:23→23:48)
[2021-10-16 05:22] LABS: Basophils # (auto) 0.04 K/uL (0-0.2); Basophils % (auto) 0.6 %; Eosinophils # (auto) 0.32 K/uL (0-0.5); Eosinophils % (auto) 4.9 %; Hematocrit (blood only) 36.9 % (37-47); Hemoglobin 11.7 g/dL (12.0-16.0); Immature Granulocytes # (auto) 0.02 K/uL (0.00-0.02); Immature Granulocytes % (auto) 0.3 %; Lymphocytes # (auto) 1.91 K/uL (1.2-3.4); Lymphocytes % (auto) 29.3 %; Mean Corpuscular Hemoglobin 27.2 pg (25-34); Mean Corpuscular Hgb Conc 31.7 g/dL (32-36); Mean Corpuscular Volume 85.8 fL (80-100); Mean Platelet Volume 9.7 fL (7.4-10.4); Monocytes # (auto) 0.74 K/uL (0.11-0.59); Monocytes % (auto) 11.3 %; Neutrophils # (auto) 3.49 K/uL (1.4-6.5); Neutrophils % (auto) 53.6 %; Platelet Count 220 K/uL (130-400); RDW Coefficient of Variation 17.8 % (11.5-14.5); RDW Standard Deviation 55.8 fL (36.4-46.3); White Blood Count 6.52 K/uL (4.8-10.8)
[2021-10-16 05:33] LABS: Partial Thromboplastin Ratio 1.2; Partial Thromboplastin Time 30.8 Seconds (21.0-31.0)
[2021-10-16 05:43] LABS: Creatinine Clr Calc Pharmacy 79.9 ml/min; Est GFR (African American) 86.9 ml/min
[2021-10-16] MEDS: LEVOTHYROXINE SODIUM 50 MCG TABLET PO SCH (06:36)
--- NOTE | 2021-10-16 06:39 | Surgery Progress Note ---
Date of Service October 16, 2021 Assessment & Plan (1) S/P exploratory laparotomy: Plan: Patient with perforation of her gastrojejunostomy site ID suggestions noted We will stop Zosyn Patient on caspofungin-May consider Diflucan for short period of time Will need Protonix as outpatient Currently on Eliquis Will have JOSÉ drain removed later today Hopefully discharge soon Admission and Anticipated Discharge Date Admission Date: October 08, 2021 Results & Data ([facility]) Vital Signs (Past 12 Hours) Vital Signs Temp Pulse Resp BP Pulse Ox 10/15/21 21:25 36.8 C 74 18 115/79 95 PG Care Time/CCT Total # of Minutes Spent Total Time Spent with Patient: Total time spent is greater than 50% in coordination of care (as documented) at patient's floor/unit and/or counseling patient: Coding Level of Care Code None Diagnoses S/P exploratory laparotomy Z98.890
[2021-10-16] MEDS: CASPOFUNGIN 50 MG in SODIUM CHLORIDE 0.9% 250 ML IV SCH (08:39)
[2021-10-16] MEDS: GABAPENTIN 300 MG CAP PO SCH ×3 (08:42→21:16)
[2021-10-16] MEDS: buPROPion SR 150 MG TABCR PO SCH (08:42)
[2021-10-16] MEDS: APIXABAN 5 MG TABLET PO SCH ×2 (08:43→21:16)
[2021-10-16] MEDS: PANTOprazole 40 MG TAB PO SCH ×2 (08:43→21:16)
--- NOTE | 2021-10-16 13:57 | Hospitalist Progress Note ---
Date of Service October 16, 2021 Assessment & Plan (1) Peritonitis: Plan: 2/2 perforated abdominal viscus s/p abdominal washout with repair of anastomotic gastrojejunostomy (2) S/P exploratory laparotomy: Plan: POD #8- post-operative management per primary team remains afebrile, no leukocytosis peritoneal fluid cultures: (+) Yeast not nandini ID consulted Completed 8 days of Zosyn therapy Caspofungin IV day 3 Per ID, since micro cannot perform further speciation or sensitivities, patient will need to continue IV caspofungin for 10 to 14 days from 10/13/2021 (3) Acute pulmonary embolism: Plan: d dimer elevated at 1000s patient report left sided chest discomfort VQ scan: (+) 2 PE's on the left lung CT angio contraindicated as patient has allergic reaction (throat tightens) to iodinated contrast media Doppler US of the RLE: negative heparin drip started on 10/10/21 --> transitioned to Eliquis on 10/15 (checked with patient's pharmacy, patient cost is $4 per month) Recommend anticoagulation for at least 3 months, may need hypercoagulable work- up with hematology (4) Hypothyroid: Plan: -Continue levothyroxine (5) Anxiety: (6) Major depressive disorder: Plan: - continue home amitriptyline, gabapentin, bupropion Plan: DVT prophylaxis -on Eliquis Thank you for this consultation. We will follow the patient with you during their hospital stay. You can reach a member of the [facility] Team 26/04 via pager @ [phone]. Admission and Anticipated Discharge Date Admission Date: October 08, 2021 Supervising Physician Co-Signing Physician Notes I have seen and examined the patient and have discussed the case with the provider above. I agree with the assessment and plan as stated. She is reporting persistent RLQ abdominal pain and now some left upper back pain that is new. She is passing gas but no BM. She is tolerating PO wtih a reduced food amount. Physical exam reveals a WNWD female in NAD who is mentating clearly. She has clear lungs to auscultation bilaterally and normal cardiac exam without edema peripherally. Extremities are warm and well-perfused. Abdomen is soft and TTP in RLQ with dressings intact and clean/dry. Cont current management. US guided line in place for caspofungin going home and case management is setting up the logistics for this. DO Sussy Del Valle Patient seen and examined. Follow-up for medical management s/p exploratory laparotomy for peritonitis due to perforated abdominal viscus. Patient is sitting up in bed. No acute distress. Has some ongoing incisional discomfort however seems to be well controlled. No chest pain or shortness of breath. Tolerating diet, denies nausea and vomiting. Urinating without difficulty. Passing flatus however no BM. Review of Systems Review of Systems: ROS per HPI, all other systems reviewed and negative Physical Exam Constitutional: no acute distress Respiratory: normal respiratory effort, lungs clear to auscultation Cardiovascular: Rate/Rhythm: regular rate and regular rhythm Vessels: normal peripheral pulses Extremities: no edema Gastrointestinal (Abdomen): Inspection/Auscultation: normal bowel sounds Percussion/Palpation: + abdomen tender (Incisional) and abdomen soft Mid abdominal dressing CDI. JOSÉ drain in place with scant amount of drainage. Skin: no rashes, warm and dry Neurologic: no focal motor deficits Psychiatric: A+Ox3, euthymic affect Results & Data Results & Data ([facility]) Vital Signs (Past 12 Hours) Vital Signs Temp Pulse Resp BP BP Pulse Ox 10/16/21 07:13 36.3 C L 72 16 89/57 L 92/61 L 96 Laboratory Results Short CBC 10/16/21 Range/Units 05:08 WBC 6.52 (4.8-10.8) K/uL Hgb 11.7 L (12.0-16.0) g/dL Hct 36.9 L (37-47) % Plt Count 220 (130-400) K/uL [facility] 10/16/21 05:08 Creatinine 0.88
[2021-10-16] MEDS: AMITRIPTYLINE HCL 25 MG TAB PO SCH (21:15)
[2021-10-17 05:44] LABS: Partial Thromboplastin Ratio 1.2; Partial Thromboplastin Time 31.3 Seconds (21.0-31.0)
[2021-10-17] MEDS: LEVOTHYROXINE SODIUM 50 MCG TABLET PO SCH (06:30)
--- NOTE | 2021-10-17 07:58 | Surgery Progress Note ---
Date of Service October 17, 2021 Assessment & Plan (1) S/P exploratory laparotomy: Plan: History of perforation at the gastrojejunostomy site Cultures of the fluid grew out yeast Patient on IV caspofungin for 10 to 14 days-currently assessing ability to give this at home She has jennifer in place which we will remove next week Gently packing the ends of her incision likely over the weekend until next week Patient will also need Protonix and Eliquis as an outpatient Prefer her medical team to manage these Possible discharge today Admission and Anticipated Discharge Date Admission Date: October 08, 2021 Results & Data ([facility]) Vital Signs (Past 12 Hours) Vital Signs Temp Pulse Resp BP Pulse Ox 10/17/21 07:22 36.4 C L 83 16 92/60 L 96 10/16/21 22:51 36.6 C 82 18 106/73 97 PG Care Time/CCT Total # of Minutes Spent Total Time Spent with Patient: Total time spent is greater than 50% in coordination of care (as documented) at patient's floor/unit and/or counseling patient: Coding Level of Care Code None Diagnoses S/P exploratory laparotomy Z98.890
[2021-10-17] MEDS: POLYETHYLENE (MIRALAX) 17 GM PACK PO SCH (09:32)
[2021-10-17] MEDS: CASPOFUNGIN 50 MG in SODIUM CHLORIDE 0.9% 250 ML IV SCH (09:32)
[2021-10-17] MEDS: oxyCODONE HCL IR 5 MG TAB (IMMEDIATE RELEASE) PO PRN (09:33)
[2021-10-17] MEDS: GABAPENTIN 300 MG CAP PO SCH ×3 (09:33→20:08)
[2021-10-17] MEDS: buPROPion SR 150 MG TABCR PO SCH (09:34)
[2021-10-17] MEDS: PANTOprazole 40 MG TAB PO SCH ×2 (09:34→20:08)
[2021-10-17] MEDS: APIXABAN 5 MG TABLET PO SCH ×2 (09:35→20:08)
--- NOTE | 2021-10-17 13:11 | Hospitalist Progress Note ---
Date of Service October 17, 2021 Assessment & Plan (1) Peritonitis: Plan: 2/2 perforated abdominal viscus s/p abdominal washout with repair of anastomotic gastrojejunostomy (2) S/P exploratory laparotomy: Plan: POD #9- post-operative management per primary team remains afebrile peritoneal fluid cultures: (+) Yeast not nandini ID consulted Completed 8 days of Zosyn therapy Caspofungin IV day 4 Per ID, since micro cannot perform further speciation or sensitivities, patient will need to continue IV caspofungin for 10 to 14 days from 10/13/2021. Will plan on 10 days of treatment. (3) Acute pulmonary embolism: Plan: d dimer elevated at 1000s patient report left sided chest discomfort VQ scan: (+) 2 PE's on the left lung CT angio contraindicated as patient has allergic reaction (throat tightens) to iodinated contrast media Doppler US of the RLE: negative heparin drip started on 10/10/21 --> transitioned to Eliquis on 10/15 (checked with patient's pharmacy, patient cost is $4 per month) Recommend anticoagulation for at least 3 months, may need hypercoagulable work- up with hematology (4) Hypothyroid: Plan: -Continue levothyroxine (5) Anxiety: (6) Major depressive disorder: Plan: - continue home amitriptyline, gabapentin, bupropion Plan: DVT prophylaxis -on Eliquis Thank you for this consultation. We will follow the patient with you during their hospital stay. You can reach a member of the [facility] Team 26/04 via pager @ [phone]. Admission and Anticipated Discharge Date Admission Date: October 08, 2021 Supervising Physician Co-Signing Physician Notes I have seen and examined the patient and have discussed the case with the provider above. I agree with the assessment and plan as stated. Denies BM today, tolerating food. RLQ pain resolved, now with some incisional pain. Back pain is improving. Patient requesting to go to [facility]. Awaiting insurance approval. Physical exam as above. Cont plan as stated above. DO Sussy Del Valle Patient seen and examined. Follow-up for medical management s/p exploratory laparotomy for peritonitis due to perforated abdominal viscus. Patient observed ambulating independently in her room. Reports pain is well controlled with current pain medication regimen. Tolerating diet, denies nausea. Passing flatus however no pain. Denies chest pain or shortness of breath. Review of Systems Review of Systems: ROS per HPI, all other systems reviewed and negative Physical Exam Constitutional: no acute distress Respiratory: normal respiratory effort, lungs clear to auscultation Cardiovascular: Rate/Rhythm: regular rate and regular rhythm Vessels: normal peripheral pulses Extremities: no edema Gastrointestinal (Abdomen): Inspection/Auscultation: normal bowel sounds Percussion/Palpation: + abdomen tender (Mild incisional) and abdomen soft Abdominal dressing CDI Skin: no rashes, warm and dry Neurologic: no focal motor deficits Psychiatric: A+Ox3, euthymic affect Results & Data Results & Data ([facility]) Vital Signs (Past 12 Hours) Vital Signs Temp Pulse Resp BP Pulse Ox 10/17/21 07:22 36.4 C L 83 16 92/60 L 96
[2021-10-17] MEDS: AMITRIPTYLINE HCL 25 MG TAB PO SCH (20:08)
[2021-10-17] MEDS ORDERED: POLYETHYLENE (MIRALAX) 17 GM PACK PO ONE (21:00)
[2021-10-18] MEDS: LEVOTHYROXINE SODIUM 50 MCG TABLET PO SCH (05:54)
--- NOTE | 2021-10-18 06:49 | Surgery Progress Note ---
Date of Service October 18, 2021 Assessment & Plan (1) Perforated abdominal viscus: Plan: Patient is status post exploratory laparotomy with repair of perforated viscus on 10/08/2021 (postop day #10) Continue diet as tolerated Continue caspofungin for total of 10 to 14 days as operative cultures grew out yeast Increase activity as able I discussed with patient there is potential for patient be discharged home but she is interested in pursuing rehab and we therefore ensure Case management is following the patient and that she has appropriate therapy evaluations. Admission and Anticipated Discharge Date Admission Date: October 08, 2021 Supervising Physician Co-Signing Physician Notes Dr Oscar ramirez Dulcolax suppository Subjective Patient is resting comfortably in bed. She denies any nausea or vomiting. She is tolerating solid diet. She notes she has passed flatus but has not had a bowel movement since her surgery. Physical Exam Gastrointestinal (Abdomen): Abdomen is soft and nondistended. There is appropriate pain near her surgical incision. Bowel sounds are present. Results & Data ([facility]) Vital Signs (Past 12 Hours) Vital Signs Temp Pulse Resp BP Pulse Ox 10/17/21 22:17 36.4 C L 66 16 102/67 99 PG Care Time/CCT Total # of Minutes Spent Total Time Spent with Patient: Total time spent is greater than 50% in coordination of care (as documented) at patient's floor/unit and/or counseling patient: Coding Level of Care Code None Diagnoses Perforated abdominal viscus R19.8
[2021-10-18] MEDS: GABAPENTIN 300 MG CAP PO SCH ×2 (08:28→13:04)
[2021-10-18] MEDS: PANTOprazole 40 MG TAB PO SCH (08:29)
[2021-10-18] MEDS: APIXABAN 5 MG TABLET PO SCH (08:29)
[2021-10-18] MEDS: buPROPion SR 150 MG TABCR PO SCH (08:29)
[2021-10-18] MEDS: POLYETHYLENE (MIRALAX) 17 GM PACK PO SCH (08:29)
[2021-10-18] MEDS: CASPOFUNGIN 50 MG in SODIUM CHLORIDE 0.9% 250 ML IV SCH (08:35)
[2021-10-18 08:48] LABS: Creatinine Clr Calc Pharmacy 70.3 ml/min; Est GFR (African American) 74.5 ml/min; Est GFR (Non-African American) 64.3 ml/min
[2021-10-18] MEDS ORDERED: bisacodyL 10 MG SUPP PR ONE ×2 (09:03→11:13)
[2021-10-18] MEDS: oxyCODONE HCL IR 5 MG TAB (IMMEDIATE RELEASE) PO PRN (09:07)
[2021-10-18 09:26] LABS: Basophils # (auto) 0.03 K/uL (0-0.2); Basophils % (auto) 0.4 %; Eosinophils # (auto) 0.32 K/uL (0-0.5); Eosinophils % (auto) 4.3 %; Hematocrit (blood only) 44.6 % (37-47); Hemoglobin 14.1 g/dL (12.0-16.0); Immature Granulocytes # (auto) 0.01 K/uL (0.00-0.02); Immature Granulocytes % (auto) 0.1 %; Lymphocytes # (auto) 2.73 K/uL (1.2-3.4); Lymphocytes % (auto) 36.8 %; Mean Corpuscular Hemoglobin 27.4 pg (25-34); Mean Corpuscular Hgb Conc 31.6 g/dL (32-36); Mean Corpuscular Volume 86.6 fL (80-100); Mean Platelet Volume 10.3 fL (7.4-10.4); Monocytes # (auto) 0.72 K/uL (0.11-0.59); Monocytes % (auto) 9.7 %; Neutrophils % (auto) 48.7 %; Platelet Count 354 K/uL (130-400); RDW Coefficient of Variation 17.4 % (11.5-14.5); RDW Standard Deviation 55.4 fL (36.4-46.3); Red Blood Count 5.15 M/uL (4.2-5.4); White Blood Count 7.41 K/uL (4.8-10.8)
--- NOTE | 2021-10-18 10:58 | Hospitalist Progress Note ---
Date of Service October 18, 2021 Assessment & Plan (1) Peritonitis: Plan: 2/2 perforated abdominal viscus s/p abdominal washout with repair of anastomotic gastrojejunostomy (2) S/P exploratory laparotomy: Plan: POD #10- post-operative management per primary team remains afebrile peritoneal fluid cultures: (+) Yeast not nandini ID consulted Completed 8 days of Zosyn therapy Caspofungin IV day /10 Per ID, since micro cannot perform further speciation or sensitivities, patient will need to continue IV caspofungin for 10 to 14 days from 10/13/2021. Will plan on 10 days of treatment. (3) Acute pulmonary embolism: Plan: d dimer elevated at 1000s patient report left sided chest discomfort VQ scan: (+) 2 PE's on the left lung CT angio contraindicated as patient has allergic reaction (throat tightens) to iodinated contrast media Doppler US of the RLE: negative heparin drip started on 10/10/21 --> transitioned to Eliquis on 10/15 (checked with patient's pharmacy, patient cost is $4 per month) Recommend anticoagulation for at least 3 months, may need outpatient hypercoagulable work-up with hematology (4) Hypothyroid: Plan: chronic, stable. Continue levothyroxine per home regimen (5) Anxiety: (6) Major depressive disorder: Plan: chronic, stable. Continue home amitriptyline, gabapentin, bupropion Plan: DVT prophylaxis -on Eliquis Full Code Dispo-to [facility], accepted and bed avail on Sun morning. Would plan to dc her early because of incoming weather. Thank you for this consultation. We will follow the patient with you during their hospital stay. [facility] via pager @ [phone]. Admission and Anticipated Discharge Date Admission Date: October 08, 2021 Subjective Follow-up for status post repair of perforated viscus with omental patch, acute pulmonary embolism Patient is resting comfortably in bed. She denies any nausea or vomiting. She is tolerating solid diet. She notes she has passed flatus but has not had a bowel movement since her surgery. Still reports some left upper back pain, no abdominal pain today. Eager to be discharged. Per CM she is accepted at [facility] pending a bed. Review of Systems Review of Systems: .All systems were reviewed and negative except as indicated above. Physical Exam Physical Exam: CONSTITUTIONAL: WNWD, vitals as above, generally well- appearing, NAD EYES: normal conjunctivae, no scleral icterus ENT: external ear and nose normal, MMM NECK: trachea midline RESPIRATORY: clear to auscultation bilaterally, no crackles, rales or wheezes, normal respiratory effort CARDIOVASCULAR: regular rate and rhythm, S1 and 2 heard without murmurs, gallops or rubs, no JVD, no peripheral edema CHEST: inspection of chest was normal GASTROINTESTINAL: soft, mild tenderness in RLQ, no guarding, incision sites were covered with dressings that were c/d/i MUSCULOSKELETAL: strength 5/5 throughout, head is normocephalic and atraumatic SKIN: warm and dry NEUROLOGIC: CN 2-12 grossly intact, normal cognition, normal speech, no tremor, no gross focal deficits. PSYCHIATRIC: alert cooperative and oriented to person, place and time. Results & Data Results & Data ([facility]) Vital Signs (Past 12 Hours) Vital Signs Temp Pulse Resp BP Pulse Ox 10/18/21 07:37 36.6 C 79 16 105/71 97 Laboratory Results Short CBC 10/18/21 Range/Units 08:11 WBC 7.41 (4.8-10.8) K/uL Hgb 14.1 (12.0-16.0) g/dL Hct 44.6 (37-47) % Plt Count 354 (130-400) K/uL BMP 10/18/21 08:11 Creatinine 1.00 Medications Administered Current Inpatient Medications Amitriptyline HCl (Amitriptyline Hcl 25 Mg Tab) 25 mg PO HS TEDDY Stop: 11/13/21 20:59 Last Admin: 10/17/21 20:08 Dose: 25 mg Documented by: Apixaban (Apixaban 5 Mg Tablet) 10 mg PO BID TEDDY Stop: 10/22/21 09:01 Last Admin: 10/18/21 08:29 Dose: 10 mg Documented by: Bupropion HCl (Bupropion Sr 150 Mg Tabcr) 150 mg PO DAILY TEDDY Stop: 11/13/21 11:59 Last Admin: 10/18/21 08:29 Dose: 150 mg Documented by: Gabapentin (Gabapentin 300 Mg Cap) 300 mg PO TID TEDDY Stop: 11/13/21 13:59 Last Admin: 10/18/21 08:28 Dose: 300 mg Documented by: Promethazine HCl 12.5 mg/ (Sodium Chloride) 50.5 mls @ 204 mls/hr IV Q6H PRN PRN Reason: Nausea And Vomiting Stop: 11/07/21 18:25 Promethazine HCl 25 mg/ Sodium (Chloride) 51 mls @ 204 mls/hr IV Q6H PRN PRN Reason: Nausea And Vomiting Stop: 11/07/21 18:25 Last Infusion: 10/10/21 11:13 Dose: Infused Documented by: Lorazepam (Ativan) 0.5 mg in 1 mls @ 0.5 mls/min IV Q8H PRN PRN Reason: Anxiety Stop: 11/08/21 10:03 Last Admin: 10/12/21 17:37 Dose: 0.5 mls/min Documented by: Caspofungin 50 mg/ Sodium (Chloride) 260 mls @ 260 mls/hr IV Q24H [facility] Stop: 10/24/21 08:59 Last Infusion: 10/18/21 10:33 Dose: Infused Documented by: Levothyroxine Sodium (Levothyroxine Sodium 50 Mcg Tablet) 50 mcg PO DAILYBB [facility] Stop: 11/14/21 06:29 Last Admin: 10/18/21 05:54 Dose: 50 mcg Documented by: Naloxone HCl (Naloxone Hcl 0.4 Mg/1 Ml Vial/Carp) 0.1 mg IV Q5M PRN; Protocol PRN Reason: Oversedation/Resp Depression Stop: 10/24/21 08:18 Ondansetron HCl (Ondansetron Inj 2 Mg/Ml 2 Ml Vial) 4 mg IV [id number] PRN PRN Reason: Nausea Stop: 11/08/21 08:53 Last Admin: 10/10/21 14:07 Dose: 4 mg Documented by: Oxycodone HCl (Oxycodone Hcl Ir 5 Mg Tab (Immediate Release)) 5 mg PO Q8H PRN PRN Reason: Pain Stop: 10/29/21 06:27 Last Admin: 10/18/21 09:07 Dose: 5 mg Documented by: Pantoprazole Sodium (Pantoprazole 40 Mg Tab) 40 mg PO BID [facility] Stop: 11/13/21 20:59 Last Admin: 01/15/22 08:29 Dose: 40 mg Documented by: Polyethylene Glycol (Polyethylene (Miralax) 17 Gm Pack) 34 gm PO BID TEDDY Stop: 11/17/21 20:59
[2021-10-18] MEDS ORDERED: POLYETHYLENE (MIRALAX) 17 GM PACK PO SCH (21:00)
--- NOTE | 2021-10-21 08:56 | Discharge Summary (DS) ---
DATE OF ADMISSION: 10/08/2021. DATE OF DISCHARGE: 10/18/2021. PRINCIPAL DIAGNOSIS: Perforation of her gastrojejunostomy anastomosis. Other diagnosis pulmonary em bolus. PROCEDURE: The patient underwent exploratory laparotomy with closure of gastrojejunostomy perforatio n. She also underwent anticoagulation. HISTORY OF PRESENT ILLNESS: The patient is a 51-year-old female presenting to the Emergency Room on 10/08/2021 with acute abdominal pain and found to have pneumoperitoneum, which was suspected to be a gastric perforation. Patient was taken to the operating room on 10/08/2021 where she underwent explo ratory laparotomy finding a perforation of her gastrojejunostomy for which she had gastric bypass harrison or. This was closed. She was placed in the intensive care unit. Postoperatively, she was somewhat s low to advance, but did have some shortness of breath and left chest pain and was diagnosed with pulm onary embolus. Duplex of her lower extremities was negative. She was anticoagulated. Gradually, sophia butts advanced in both diet and activity as well as anticoagulation and felt stable for discharge on 10/04 to be followed in the surgical clinic within 1-2 weeks. Job ID: [id number]
== END 2021-10-18 13:45 | DRG 329 ==
LOC: ED 08:24 → ASU 15:20 → 1E 16:51 → 3W 10-09 06:43 → 3E 10-09 11:49
DX: Z88.6 Allergy status to analgesic agent; I26.99 Other pulmonary embolism without acute cor pulmonale; I12.9 Hypertensive chronic kidney disease with stage 1 through stage 4 chronic kidney disease, or unspecified chronic kidney disease; Z91.041 Radiographic dye allergy status; K65.9 Peritonitis, unspecified; F41.9 Anxiety disorder, unspecified; K27.9 Peptic ulcer, site unspecified, unspecified as acute or chronic, without hemorrhage or perforation; Z98.84 Bariatric surgery status; Z88.8 Allergy status to other drugs, medicaments and biological substances; E03.9 Hypothyroidism, unspecified; K63.1 Perforation of intestine (nontraumatic); N18.30 Chronic kidney disease, stage 3 unspecified; B37.89 Other sites of candidiasis

== ENCOUNTER 2025-05-25 15:00 | Inpatient (IN) ==
[2025-05-25] MEDS: LORazepam 1 MG/1 ML SYR ED Inj Use IV PRN (15:36)
[2025-05-25 15:49] LABS: Hematocrit (blood only) 41.3 % (37.0-47.0); Hemoglobin 13.5 g/dl (12.0-16.0); Immature Granulocytes # (auto) 0.03 K/uL (0.01-0.20); Immature Granulocytes % (auto) 0.2 %; Mean Corpuscular Hemoglobin 30.8 pg (25.0-34.0); Mean Corpuscular Volume 94.1 fL (80.0-100.0); Platelet Count 247 K/uL (130-400); RDW Standard Deviation 40.5 fL (36.4-46.3); Red Blood Count 4.39 M/uL (4.20-5.40); White Blood Count 12.05 K/ul (4.8-10.8)
[2025-05-25 16:03] LABS: Appearance Urine Clear (Clear); Bacteria Urine Automated None Seen (None Seen); Cast Urine Automated 0-2 /lpf (0-2); Glucose Urine UA Negative (Negative); RBC Urine Automated 0-2 /hpf (0-2)
[2025-05-25 16:08] LABS: Alanine Aminotransferase 22.0 U/L (7-52); Albumin Globulin Ratio 1.1 (0.9-2); Alkaline Phosphatase 90.0 U/L (34-104); Anion Gap 7.0 (3-11); Bilirubin,Total 0.4 mg/dl (0.2-1.0); Blood Urea Nitrogen 17.0 mg/dl (6-23); Calcium 9.2 mg/dl (8.6-10.3); Carbon Dioxide 26.0 mmol/L (21-32); Chloride 106.0 mmol/L (98-107); Creatinine Clr Calc Pharmacy 58.8 ml/min; Globulin 3.6 gm/dl (2.5-4.0); Glucose 94.0 mg/dl (70-99(Fasting)); Potassium 4.0 mmol/L (3.5-5.1); Sodium 139.0 mmol/L (136-145); Total Protein 7.6 gm/dl (6.0-8.3)
[2025-05-25] MEDS: SODIUM CHLORIDE 0.9% 1,000 ML IV SCH (16:16)
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
--- NOTE | 2025-05-25 16:45 | Magnetic Resonance Report ---
Clinical History: Lower back pain Technique: Sagittal and axial T1 and T2-weighted magnetic resonance images were obtained of the lumbar spine without gadolinium contrast. Comparison is made to the prior MRI dated 03/12/2017 Findings: The lumbar vertebrae are in normal alignment. There are mild degenerative endplate changes. There are several apparent vertebral hemangiomas with characteristic increased T1 and increased T2 signal intensity. No other focal osseous lesion is evident. No fracture is identified. There is no definite sign of infection. There is no sign of acute ligamentous injury. The conus medullaris appears normal, terminating at the level of T12-L1. At L1-L2, there is a disc bulge with mild bilateral neural foramen narrowing. There is no spinal stenosis or clear nerve root compression. At L2-L3, there is a minimal disc bulge without spinal stenosis or nerve root compression At L3-L4, there is a disc bulge with mild bilateral neural foramen narrowing. There is no spinal stenosis or clear nerve root compression. At L4-L5, there is a disc bulge with mild bilateral neural foramen narrowing. There is no spinal stenosis or clear nerve root compression. At L5-S1, there is a disc bulge and a small central disc protrusion. There is mild left neural foramen narrowing. There is no spinal stenosis or definite nerve root compression. Impression: Disc protrusion at L5-S1 and disc bulges at other levels, without spinal stenosis or visible nerve root compression Electronically signed by Barron Jackson 05-25-2025 4:44 PM
[2025-05-25] MEDS: LIDOCAINE 5% 1 PATCH TD STA (17:25)
[2025-05-25] MEDS: GABAPENTIN 100 MG CAP PO STA (17:43)
[2025-05-25] MEDS: METHOCARBAMOL 500 MG TABLET PO STA (18:52)
[2025-05-25] MEDS: REMOVE LIDODERM PATCH SCH (20:10)
[2025-05-25] MEDS ORDERED: HYDROmorphone INJ 0.5 MG/0.5 ML SYR IV PRN (20:59)
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
--- NOTE | 2025-05-25 21:12 | Electrocardiogram Report ---
Test Reason : Blood Pressure : */* mmHG Vent. Rate : 92 BPM Atrial Rate : 92 BPM P-R Int : 148 ms QRS Dur : 84 ms QT Int : 374 ms P-R-T Axes : 50 -33 11 degrees QTcB Int : 462 ms Normal sinus rhythm Left axis deviation Low voltage QRS Possible Anterolateral infarct , age undetermined Abnormal ECG When compared with ECG of 19-Apr-2025 14:22, No significant change was found Confirmed by Vipul Sosa ([id number]) on 05/25/2025 9:11:59 PM Referred By: Confirmed By: Vipul Sosa
[2025-05-25] MEDS: SODIUM CHLORIDE 0.9% 1,000 ML IV ONE (21:16)
[2025-05-25] MEDS: MoRPHine SULFATE 4 MG/ML 1 ML CARP\\VIAL IV STA (21:16)
[2025-05-25] MEDS ORDERED: MECLIZINE HCL 25 MG TAB PO PRN (22:39)
[2025-05-25] MEDS ORDERED: MELATONIN 3 MG TAB PO PRN (22:54)
[2025-05-26] MEDS: AMITRIPTYLINE HCL 25 MG TAB PO SCH (00:13)
[2025-05-26] MEDS: PROMETHAZINE 12.5 MG/50.5 ML BAG IV PRN (00:28)
[2025-05-26 04:22] LABS: Appearance Urine Clear (Clear); Bacteria Urine Automated None Seen (None Seen); Cast Urine Automated 0-2 /lpf (0-2); Epithelial Cell Urine Auto 0-2 /hpf (0-2); Glucose Urine UA Negative (Negative); RBC Urine Automated 0-2 /hpf (0-2); WBC Urine Automated 21-50 /hpf (0-5)
[2025-05-26] MEDS: LEVOTHYROXINE SODIUM 50 MCG TABLET PO SCH (06:08)
[2025-05-26] MEDS: REMOVE LIDODERM PATCH ONE (06:08)
[2025-05-26 07:22] LABS: Anion Gap 6.0 (3-11); Blood Urea Nitrogen 16.0 mg/dl (6-23); Calcium 8.3 mg/dl (8.6-10.3); Carbon Dioxide 25.0 mmol/L (21-32); Chloride 111.0 mmol/L (98-107); Creatinine Clr Calc Pharmacy 65.3 ml/min; Glucose 78.0 mg/dl (70-99(Fasting)); Potassium 4.3 mmol/L (3.5-5.1); Sodium 142.0 mmol/L (136-145)
[2025-05-26] MEDS: LINACLOTIDE 145 MCG CAPSULE PO SCH (09:00)
[2025-05-26] MEDS: LORazepam 0.5 MG TAB PO SCH (09:07)
[2025-05-26] MEDS: POLYETHYLENE (MIRALAX) 17 GM PACK PO SCH (09:07)
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
--- NOTE | 2025-05-26 13:24 | Magnetic Resonance Report ---
MRI OF THE CERVICAL SPINE WITHOUT IV CONTRAST CLINICAL HISTORY: Upper extremity paresthesias. COMPARISON STUDY: Cervical spine CT dated 03/04/2024. Cervical spine MRI dated 07/10/2020. TECHNIQUE: MRI of the cervical spine is performed utilizing various T1 and T2-weighted sequences in t he axial and sagittal planes. IV contrast was not administered for this examination. The examination is significantly degraded by motion artifact. FINDINGS: Cervical spine: Vertebral body height and alignment are maintained throughout the cervical spine. Ant erior osteophytes are seen throughout. The atlantodental articulation is maintained. The spinous proc esses appear intact. Mild chronic degenerative endplate changes noted at C5-C6 and C6-C7. Intervertebral discs: Disc desiccation is seen throughout the cervical spine. There is only minimal l oss of height. Spinal cord: The cervical cord is normal in morphology and signal intensity. C2-C3: Unremarkable. C3-C4: Mild facet arthropathy is of no consequence. The central canal and neural foramina are patent. C4-C5: The central canal is clear. Facet arthropathy causes mild left and minimal right neural forami nal narrowing. C5-C6: A posterior disc osteophyte complex abuts the ventral cord. The minimum AP canal diameter at t his level measures 9 mm. Mild facet arthropathy is of no consequence. The neural foramina are patent. C6-C7: A posterior disc osteophyte complex effaces the ventral subarachnoid space. Mild facet arthrop athy is of no consequence. The neural foramina are patent. C7-T1: Unremarkable. Soft tissues: The prevertebral and paraspinous soft tissues are within normal limits. Brain parenchyma: The imaged brain parenchyma at the skull base is within normal limits. IMPRESSION: 1. Motion degraded examination. 2. Degenerative disc disease as above with no high-grade central canal stenosis or neural foraminal n arrowing seen throughout the cervical region. 3. No destructive bony process is identified. 4. The cervical cord is normal in morphology and signal intensity. Electronically signed by: Chalino Gaxiola M.D. 05/26/2025 1:22 PM
--- NOTE | 2025-05-26 13:27 | Hospitalist Progress Note ---
Date of Service May 26, 2025 Assessment & Plan (1) Lumbar radiculopathy: Plan: 54-year-old lady with PMH of HTN, orthostatic hypotension, PE, migraine, hypothyroidism, GERD, gastric bypass, PCOS, cerebral concussion, traumatic subdural hematoma, anxiety/mood disorder, personality disorder, chronic pain presents with complaint of acute lower back pain more on the right side with radiation to inner side of right lower extremity for about 3 days [employer]. Patient denied any trauma. Patient reports pain worse with walking. She is being managed for the following: Lumbar radiculopathy Low back pain: Radiating to right lower extremity Patient comes in with low back pain with radiating numbness and tingling to right lower extremity. MRI lumbar spine with disc protrusion at L5-S1 and disc bulges at other levels without spinal stenosis or vertebral nerve root compression. Continue with the scheduled diclofenac gel, tizanidine jayden and as needed oxycodone for pain management. PT eval/treat. Bowel regimen while on opiates. If unable to control pain, consider pain management consult. Orthospine evaluated, appreciate recommendation, recommends conservative management. Other chronic medical conditions: Continue with/resume home meds as and when able. hypertension, stable off maintenance medications likely due to history orthostatic hypotension history of PE hypothyroidism, euthyroid as of recent outpatient TSH history of gastric bypass hx cerebral concussion/ traumatic subdural hematoma anxiety/mood disorder, personality disorder as per records, at baseline chronic pain PT OT eval DVT prophylaxis. SCDs Full code Text document was generated using [employer] voice recognition software. It may contain grammatical or spelling errors. Kindly contact undersigned for clarification of any documentation item in question. Admission and Anticipated Discharge Date Admission Date: May 25, 2025 Subjective Patient was seen and examined at bedside. Patient was lying in bed, on room air, NAD, resting comfortably. Patient moving within the bed comfortably. Patient reports her right-sided lower back pain and RLE numbness/tingling is better with pain medications to some extent. Patient denies any bowel or bladder incontinence. Patient reports being able to eat okay. Physical Exam Physical Exam: GENERAL: Comfortable, obese, no respiratory distress SKIN: Normal color, warm HEENT: [place] palpebral conjunctivae, no ptosis, Moist buccal mucosa NECK : Supple, short neck, no tenderness CHEST : CTA, no tenderness HEART : RRR, no obvious murmurs ABDOMEN: Some distention,no tenderness BACK : Low back tenderness with limited SLR EXTREMITIES : Minimal LE swelling, no LE tenderness, no other conspicuous deformities noted NEUROLOGIC : Coherent, no facial asymmetry, gait and stance not assessed Results & Data Results & Data Vital Signs (Past 12 Hours) Vital Signs Temp Pulse Resp BP Pulse Ox O2 Del Method 05/26/25 07:33 36.5 C 75 16 104/71 97 Room Air 05/26/25 01:56 36.4 C L 80 18 113/77 96 Room Air
[2025-05-26] MEDS: DICLOFENAC SOD 1% GEL 100 GM TUBE EXT SCH (14:36)
--- NOTE | 2025-05-26 14:45 | Magnetic Resonance Report ---
Thoracic spine MRI without contrast History: Low back pain Comparison: None Technique: Sagittal T1-weighted, sagittal T2-weighted, sagittal STIR, sagittal diffusion weighted, and axial T2-weighted through the thoracic spine were obtained without intravenous contrast. Findings: The thoracic vertebral column appears in normal alignment. There is no significant loss of disc height . The spinal cord contour and signal pattern appear within normal limits. Impression: Normal thoracic spine MRI. Electronically signed by Abel Aviles 05-26-2025 2:45 PM
[2025-05-26] MEDS: SODIUM CHLORIDE 0.9% 500 ML IV SCH (15:45)
[2025-05-26] MEDS: MIDODRINE HCL 2.5 MG TAB PO ONE (16:12)
[2025-05-26] MEDS: SODIUM CHLORIDE 0.9% 250 ML IV ONE (16:27)
[2025-05-26] MEDS: ALBUMIN 25% 25 GM/100 ML VIAL IV ONE (17:11)
[2025-05-26] MEDS: SODIUM CHLORIDE 0.9% 1,000 ML IV SCH (17:14)
[2025-05-26] MEDS: DOCUSATE SODIUM 100 MG CAP PO SCH (20:37)
[2025-05-26] MEDS: METHOCARBAMOL 500 MG TABLET PO SCH (21:49)
[2025-05-27] MEDS: LACTATED RINGER'S 1,000 ML IV ONE (01:41)
[2025-05-27 06:33] LABS: Hematocrit (blood only) 34.8 % (37.0-47.0); Hemoglobin 11.4 g/dl (12.0-16.0); Mean Corpuscular Hemoglobin 31.5 pg (25.0-34.0); Mean Corpuscular Volume 96.1 fL (80.0-100.0); Platelet Count 159 K/uL (130-400); RDW Standard Deviation 42.2 fL (36.4-46.3); Red Blood Count 3.62 M/uL (4.20-5.40); White Blood Count 4.00 K/ul (4.8-10.8)
[2025-05-27 07:10] LABS: Anion Gap 4.0 (3-11); Blood Urea Nitrogen 16.0 mg/dl (6-23); Calcium 8.7 mg/dl (8.6-10.3); Carbon Dioxide 25.0 mmol/L (21-32); Chloride 113.0 mmol/L (98-107); Creatinine Clr Calc Pharmacy 80.9 ml/min; Glucose 77.0 mg/dl (70-99(Fasting)); Magnesium 2.0 mg/dl (1.7-2.4); Potassium 4.1 mmol/L (3.5-5.1); Sodium 142.0 mmol/L (136-145)
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
[2025-05-27] MEDS ORDERED: Nursing to Pharmacy Communication SCH (13:00)
[2025-05-27 13:15] LABS: Iron 67.0 mcg/dl (35-150); Total Iron Binding Cap Calc 237.0 mcg/dl (250-450); Transferrin 169.0 mg/dl (200-360); Transferrin (FE) Percent Satur 28.0 % (15-50)
[2025-05-27 13:28] LABS: Thyroid Stimulating Hormone 2.062 uIu/ml (0.300-4.500)
[2025-05-27 13:39] LABS: Folate (Folic Acid),Ser orPlas 7.52 ng/ml (>5.38)
[2025-05-27 13:40] LABS: Vitamin B12 791.0 pg/ml (180-914)
--- NOTE | 2025-05-27 14:57 | Hospitalist Progress Note ---
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 Patient denied any trauma. Patient reports pain worse with walking. She is being managed for the following: ?? Lumbar radiculopathy Low back pain: Radiating to right lower extremity Paresthesias: all limbs, intermittent Patient comes in with low back pain with radiating numbness and tingling to right lower extremity. MRI lumbar spine with disc protrusion at L5-S1 and disc bulges at other levels without spinal stenosis or vertebral nerve root compression. MRI C and T-spine with no acute findings. Continue with the scheduled diclofenac gel, methocarbamol jayden and as needed oxycodone for pain management. PT eval/treat. Bowel regimen while on opiates. If unable to control pain, consider pain management consult. Orthospine evaluated, appreciate recommendation, recommends conservative management. Neuroconsult placed given paresthesias not explained by spine pathology. Recommendations are: Vitamin B12, folate, thiamine, iron, vitamin ADEK, zinc and copper levels. Outpatient EMG. Possible MRI brain and lumbar puncture if aforementioned levels are WNL. Other chronic medical conditions: Continue with/resume home meds as and when able. hypertension, stable off maintenance medications likely due to history orthostatic hypotension history of PE hypothyroidism, euthyroid as of recent outpatient TSH history of gastric bypass hx cerebral concussion/ traumatic subdural hematoma anxiety/mood disorder, personality disorder as per records, at baseline chronic pain PT OT eval DVT prophylaxis. SCDs Full code Text document was generated using [employer] voice recognition software. It may contain grammatical or spelling errors. Kindly contact undersigned for clarification of any documentation item in question. Admission and Anticipated Discharge Date Admission Date: May 25, 2025 Subjective Patient was seen and examined at bedside. Patient was lying in bed, on room air, NAD, resting comfortably. Patient moving within the bed comfortably. Patient reports her right-sided lower back pain 6/10 and RLE numbness/tingling is worse today. Patient also reports numbness and tingling over her perineum, over her bilateral hands and over her left foot. Patient's mother and significant other present at bedside who were also updated on plan of care. Physical Exam Physical Exam: GENERAL: Comfortable, obese, no respiratory distress SKIN: Normal color, warm HEENT: [place] palpebral conjunctivae, no ptosis, Moist buccal mucosa NECK : Supple, short neck, no tenderness CHEST : CTA, no tenderness HEART : RRR, no obvious murmurs ABDOMEN: Some distention,no tenderness BACK : Low back tenderness with limited SLR EXTREMITIES : Minimal LE swelling, no LE tenderness, no other conspicuous deformities noted NEUROLOGIC : Coherent, no facial asymmetry, gait and stance not assessed Results & Data Results & Data Vital Signs (Past 12 Hours) Vital Signs Temp Pulse Resp BP Pulse Ox O2 Del Method 05/27/25 10:25 36.8 C 85 92/60 L 96 Room Air 05/27/25 08:07 36.4 C L 68 16 95/62 L 96 Room Air 05/27/25 06:15 103/64
[2025-05-28 06:25] LABS: Hematocrit (blood only) 35.6 % (37.0-47.0); Hemoglobin 11.6 g/dl (12.0-16.0); Mean Corpuscular Hemoglobin 31.0 pg (25.0-34.0); Mean Corpuscular Volume 95.2 fL (80.0-100.0); Platelet Count 193 K/uL (130-400); RDW Standard Deviation 41.7 fL (36.4-46.3); Red Blood Count 3.74 M/uL (4.20-5.40); White Blood Count 4.87 K/ul (4.8-10.8)
[2025-05-28 07:23] LABS: Anion Gap 6.0 (3-11); Blood Urea Nitrogen 13.0 mg/dl (6-23); Calcium 8.6 mg/dl (8.6-10.3); Carbon Dioxide 26.0 mmol/L (21-32); Chloride 110.0 mmol/L (98-107); Creatinine Clr Calc Pharmacy 61.6 ml/min; Glucose 79.0 mg/dl (70-99(Fasting)); Magnesium 2.0 mg/dl (1.7-2.4); Potassium 4.0 mmol/L (3.5-5.1); Sodium 142.0 mmol/L (136-145)
[2025-05-28 07:43] VITALS: BP 96/71; PULSE 72; RESP 18; TEMP 97.9; O2SAT 93
[2025-05-28] MEDS: CHOLECALCIFEROL 25 MCG (1000 UNITS) TAB PO SCH (09:18)
--- NOTE | 2025-05-28 12:25 | Discharge Summary ---
Date of Service May 28, 2025 Admission HPI Per Admitting Provider History obtained from patient, family, and records. Medical history significant for hypertension, history orthostatic hypotension, history of PE, migraine, hypothyroidism, GERD, history of gastric bypass, PCOS, history cerebral concussion, history of traumatic subdural hematoma, anxiety/mood disorder, personality disorder as per records, chronic pain Last confinement [facility] last month for observation post EGD with septotomy. 3 days ago, patient noted achy lower back pain more on the right with some radiation to the upper legs. No recollection of trauma. Pain worse with walking. No fever, no chills. Urinary incontinence described as inability to reach bathroom in time. Patient seen at PCP's office yesterday. MRI lumbar spine recommended. Later last night, patient noted new bowel incontinence and numbness going to the thighs. Patient directed to ER for evaluation by outpatient provider. Medical History as above Surgical History : Wrist surgery, appendectomy, strabismus surgery, cholecystectomy, BTL, tonsillectomy, cholecystectomy, eardrum surgery, gastric bypass, hysterectomy, salpingectomy Family History : Blood clots, heart disease, lung cancer Personal/Social history : Non-smoker, no EtOH intake, disabled Admission Exam Per Admitting Provider GENERAL: Comfortable, obese, no respiratory distress SKIN: Normal color, warm HEENT: [place] palpebral conjunctivae, no ptosis, dry buccal mucosa NECK : Supple, short neck, no tenderness CHEST : CTA, no tenderness HEART : RRR, no obvious murmurs ABDOMEN: Some distention,no tenderness BACK : Low back tenderness with limited SLR EXTREMITIES : Minimal LE swelling, no LE tenderness, no other conspicuous deformities noted NEUROLOGIC : Coherent, no facial asymmetry, gait and stance not assessed Principal Diagnosis ?? Lumbar radiculopathy Low back pain: Radiating to right lower extremity Paresthesias: all limbs, intermittent Discharge Exam GENERAL: Comfortable, obese, no respiratory distress SKIN: Normal color, warm HEENT: [place] palpebral conjunctivae, no ptosis, Moist buccal mucosa NECK : Supple, short neck, no tenderness CHEST : CTA, no tenderness HEART : RRR, no obvious murmurs ABDOMEN: No distention,no tenderness BACK : Low back tenderness with limited SLR EXTREMITIES : Minimal LE swelling, no LE tenderness, no other conspicuous deformities noted NEUROLOGIC : Coherent, no facial asymmetry, gait and stance not assessed Discharge Data Allergies Allergy/AdvReac Type Severity Reaction Status Date / Time Iodinated Contrast Media Allergy Severe THROAT Verified 05/14/23 05:54 TIGHTENS, SHAKINESS, hives acetaminophen Allergy Intermediate HIVES, Verified 05/14/23 05:54 nausea, vomiting erythromycin base Allergy Intermediate abdominal Verified 05/14/23 05:54 pain, hives, nausea, vomiting iodine Allergy Intermediate hives Verified 05/14/23 05:54 ibuprofen Allergy Unknown Hives Verified 05/14/23 05:54 ketorolac Allergy Unknown CAN'T Verified 05/14/23 05:54 REMEMBER mupirocin Allergy Unknown itching,cl Verified 05/14/23 05:54 h sumatriptan Allergy Unknown HIVES Verified 05/14/23 05:54 tea tree Allergy Unknown Lobo tea Verified 05/14/23 05:54 - HIVES, dizziness,sweating tizanidine AdvReac Intermediate Hypotension Verified 05/26/25 16:52 prednisone AdvReac Unknown Shakiness, Verified 05/14/23 05:54 cannot take d/t gastric bypass surgery per pt propoxyphene AdvReac Unknown UPSET Verified 05/14/23 05:54 STOMACH, shakiness, dizziness valproic acid AdvReac Unknown Dizziness Verified 05/14/23 05:54 venlafaxine AdvReac Unknown DIZZINESS, Verified 05/14/23 05:54 VOMITING Consultations 05/25/25 20:55 ED Decision to Admit Stat 05/25/25 21:43 Consult Orthopedic Spine Surgery Routine 05/27/25 11:02 Consult Neurology Routine Ordered Studies 05/25/25 15:15 MR lumbar spine wo con Stat 05/26/25 09:31 MRI Spine [MR thoracic spine wo con] Urgent 05/26/25 09:32 MRI Cervical [MR cervical spine wo con] Urgent Hospital Course (1) Lumbar radiculopathy: 54-year-old lady with PMH of HTN, orthostatic hypotension, PE, migraine, hypothyroidism, GERD, gastric bypass, PCOS, cerebral concussion, traumatic subdural hematoma, anxiety/mood disorder, personality disorder, chronic pain presents with complaint of acute lower back pain more on the right side with radiation to inner side of right lower extremity for about 3 days [employer]. Patient denied any trauma. Patient reports pain worse with walking. She was being managed for the following: ?? Lumbar radiculopathy Low back pain: Radiating to right lower extremity Paresthesias: all limbs, intermittent Patient comes in with low back pain with radiating numbness and tingling to r ight lower extremity. MRI lumbar spine with disc protrusion at L5-S1 and disc bulges at other levels without spinal stenosis or vertebral nerve root compression. MRI C and T-spine with no acute findings. Continue with the scheduled diclofenac gel, methocarbamol jayden and as needed oxycodone for pain management. Patient reports improvement on her low back pain continues to have RLE numbness and tingling. Patient advised to continue with physical therapy upon discharge and also advised to continue with bowel regimen while on opiates. Patient reports improvement in her numbness and tingling of bilateral hands and left foot and perineum today. Case was discussed with neurology, while we are waiting for vitamins/minerals level she can be discharged with close follow-up with neurology upon discharge and further workup as an outpatient. [facility] also evaluated the patient, recommends conservative management. Patient advised to continue with her prior to arrival vitamin B12 and iron suppl ements. Other chronic medical conditions: Continue with/resume home meds as and when able. hypertension, stable off maintenance medications likely due to history orthostatic hypotension history of PE hypothyroidism, euthyroid as of recent outpatient TSH history of gastric bypass hx cerebral concussion/ traumatic subdural hematoma anxiety/mood disorder, personality disorder as per records, at baseline chronic pain PT OT eval DVT prophylaxis. SCDs Full code Patient is being discharged to home with outpatient physical therapy with following instructions at the point of discharge: Follow-up with your primary care physician within a week time and likely you will need labs CBC/CMP/magnesium/phosphorus. Neurology evaluated you for your paresthesias, several vitamin levels and copper/zinc levels have been sent out, recommend that you follow-up with neurology in 1 to 2 weeks time upon discharge. Continue with physical therapy upon discharge. Take your medications as prescribed. Please make sure that you are able to get your medications today by calling your pharmacy before you leave the hospital so that your treatment continuity is not broken. Text document was generated using [employer] voice recognition software. It may contain grammatical or spelling errors. Kindly contact undersigned for clarification of any documentation item in question. Home Health Attestation I certify that this patient is under my care and that I, or a physicians service assistant working with me, had a face to-face encounter that meets the home health [id number] encounter requirements with this patient. The encounter with the patient was in whole, or in part, for the following medical condition, which is the primary reason for home health care (list medical condition): I certify that, based on my findings, the following services are medically necessary home health services: My clinical findings support the need for the above services because: Further, I certify that my clinical findings support that this patient is homebound (i.e. absences from home require considerable and taxing effort and are for medical reasons or orthodoxy services or infrequently or of short duration when for other reasons) because: Certification for Home Health Services: Based on the above findings, I certify that this patient is confined to the home and needs intermittent penitentiary care, physical therapy and/or speech therapy or continues to need occupational therapy. The patient is under my care, and I have initiated the establishment of the plan of care. This patient will be followed by a physician who will periodically review the plan of care. Total Time Total Time Spent Total Time Spent (In Minutes): 45 Discharge Plan Discharge Items Patient Disposition: Home - Self-Care Reason For Visit: BACK PAIN (PRIVATE RM PER RQ) Discharge Diagnosis: ?? Lumbar radiculopathy Low back pain: Radiating to right lower extremity Paresthesias: all limbs, intermittent Condition on Discharge: Fair Activity: As commented below Activity Comment: continue with physical therapy upon discharge Non-emergency contact: Primary Care Provider Call non-emergency contact if: you have any medication questions and your symptoms worsen Follow-up/Referrals: Meka Medrano DO [Primary Care Provider] - (Date & Time 06/05/2025 10:00 AM Provider: Dmitry Taylor PA-C [facility] ) Diet: Regular Ambulatory Orders: Physical Medicine Amb Referral (Routine) Timeframe: 1 Day Location: None Selected Ordered By: Faith Gonzalez Attending Provider Instructions: Follow-up with your primary care physician within a week time and likely you will need labs CBC/CMP/magnesium/phosphorus. Neurology evaluated you for your paresthesias, several vitamin levels and copper/zinc levels have been sent out, recommend that you follow-up with neurology in 1 to 2 weeks time upon discharge. Continue with physical therapy upon discharge. Take your medications as prescribed. Please make sure that you are able to get your medications today by calling your pharmacy before you leave the hospital so that your treatment continuity is not broken. Pending Studies at Discharge: No Stand-Alone Forms: My [facility], Smoking Cessation Medications and DC Order Prescriptions: New methocarbamol 500 mg Tablet 500 mg PO TID Qty: 90 0RF cholecalciferol (vitamin D3) 25 mcg (1,000 unit) Capsule 25 mcg PO QAM Qty: 30 0RF folic acid 1 mg tablet 1 mg PO DAILY Qty: 30 0RF Continued bupropion HCl 150 mg tablet sustained-release 12 hr 150 mg PO DAILY Rx Instructions: Noon time levothyroxine 50 mcg tablet 50 mcg PO QAM Rx Instructions: 30 minutes prior to breakfast ondansetron HCl 4 mg tablet 4 mg PO Q8H PRN (Reason: Nausea) valacyclovir 500 mg tablet 500 mg PO DAILY Patient Comments: supposed to be taking daily/take as needed. lorazepam 0.5 mg tablet 0.5 mg PO BID Patient Comments: every night bedtime and during day if needed Rx Instructions: in AM and HS meclizine 25 mg Tablet 25 mg PO Q6H PRN (Reason: Dizziness) promethazine 25 mg Tablet 25 mg PO Q6H PRN (Reason: NAUSEA/VOMITING) dicyclomine 10 mg capsule 10 mg PO TID PRN (Reason: Pain) polyethylene glycol 3350 [Miralax] 17 gram powder in packet 17 g PO QAM pantoprazole [Protonix] 40 mg tablet,delayed release (DR/EC) 40 mg PO BID nystatin 100,000 unit/gram Powder 1 applic TOPICAL DAILY PRN (Reason: breast folds ) simethicone 80 mg Tablet,Chewable 80 mg PO DAILY PRN (Reason: stomach issues) lidocaine [Lidoderm] 5 % adhesive patch,medicated 1 patch topical UD PRN (Reason: Back Pain) Rx Instructions: leave on most painful area for up to 12 hrs amitriptyline 10 mg tablet 10 mg PO UD lorazepam 0.5 mg tablet 0.5 mg PO DAILY PRN (Reason: Anxiety) diphenhydramine HCl [Benadryl] 12.5 mg/5 mL Elixir 25 mg PO Q6H PRN (Reason: Allergy Symptoms) ferrous sulfate 324 mg (65 mg iron) Tablet,Delayed Release (Dr/Ec) 324 mg PO BID melatonin 5 mg Tablet 5 mg PO HS diclofenac sodium 1 % Gel 2 g TOPICAL QID PRN (Reason: Pain) Qty: 100 0RF Rx Instructions: apply to lower back albuterol sulfate 90 mcg/actuation Hfa Aerosol Inhaler 2 puff INHALATION QID PRN (Reason: SOB/WHEEZING) tramadol 50 mg tablet 50 mg PO Q6H PRN (Reason: pain) Qty: 12 0RF amitriptyline 25 mg tablet 25 mg PO HS oxycodone 5 mg tablet 5 mg PO Q4 PRN (Reason: Pain) Linzess 145 mcg capsule 145 mcg PO DAILY Rx Instructions: before breakfast Discontinued cyclobenzaprine 10 mg tablet 10 mg PO BID PRN (Reason: muscle spasm) cyclobenzaprine 5 mg Tablet 5 mg PO TID PRN (Reason: Muscle Spasm) Discharge Orders: Discharge Order (Routine); Ordered 05/28/25 Ordered By: Faith Camarena Admission Data Admit Date/Time: 05/27/25 14:49 Attending Provider: Faith Camarena Admit Provider: Omkar Larios Primary Care Provider: Meka Medrano Other Providers: Omkar Larios; Chalino Conti; Lydia Kam
[2025-05-30 18:52] LABS: Vitamin E Beta-Gam Tocopherol <1.0 mg/L (<=4.3)
[2025-05-31 10:49] LABS: Copper, Serum 95 mcg/dL (70-175)
== END 2025-05-28 13:48 | disposition home or self-care (01) | DRG 552 ==
LOC: EDINP 15:00 → ED 15:00 → 2W 23:20 → 3W 05-27 22:58